=== PATIENT | female | born 1980 | race Caucasian/White ===

== ENCOUNTER 2020-05-04 06:45 | Outpatient (REF) | payer OTHER, SELFPAY ==
[2020-05-04 07:31] LABS: MANUAL DIFF FLAG NO
[2020-05-04 07:40] LABS: Basophils Absolute Auto 0.1 X10*3/uL (0.0-0.2); Basophils Percent Auto 1.1 % (0-2); Eosinophils Absolute Auto 0.2 X10*3/uL (0.0-0.4); Eosinophils Percent Auto 2.2 % (0-4); Hematocrit 34.1 % (37-47); Imm Gran Abs Auto 0.12 X10*3/uL (0.00-0.03); Imm Gran Pct Auto 1.3 % (0.0-0.4); Lymphocytes Absolute Auto 2.4 X10*3/uL (1.2-4.9); Lymphocytes Percent Auto 26.3 % (20-40); Mean Corpuscular HGB Conc 32.3 g/dl (31.0-35.0); Mean Corpuscular Hemoglobin 30.1 pg (27.0-33.0); Mean Corpuscular Volume 93.2 fL (80-98); Mean Platelet Volume 10.8 fL (9.4-12.3); Monocytes Absolute Auto 0.5 X10*3/uL (0.1-1.2); Monocytes Percent Auto 5.5 % (2-11); Neutrophils Absolute Auto 5.7 X10*3/uL (2.0-8.3); Neutrophils Percent Auto 63.6 % (45-73); Platelet Count 332 X10*3/uL (160-400); Red Blood Count 3.66 X10*6/uL (4.20-5.50); Red Cell Distribution Width 15.9 % (11.0-16.0)
== END 2020-05-04 06:46 | disposition home or self-care (01) ==
LOC: HO.LABR 06:45
PROVIDERS: PCP Internal Medicine; Visit Provider Internal Medicine Medical Oncology
DX: D47.3 Essential (hemorrhagic) thrombocythemia (principal)
CPT/HCPCS: 36415; 85025

== ENCOUNTER 2020-06-01 10:29 | Outpatient (REF) | payer OTHER, SELFPAY ==
[2020-06-01 12:30] LABS: MANUAL DIFF FLAG NO
[2020-06-01 12:35] LABS: Basophils Absolute Auto 0.1 X10*3/uL (0.0-0.2); Basophils Percent Auto 1.1 % (0-2); Eosinophils Absolute Auto 0.2 X10*3/uL (0.0-0.4); Hematocrit 35.9 % (37-47); Hemoglobin 11.6 g/dl (12.0-16.0); Imm Gran Abs Auto 0.08 X10*3/uL (0.00-0.03); Imm Gran Pct Auto 0.9 % (0.0-0.4); Lymphocytes Absolute Auto 2.2 X10*3/uL (1.2-4.9); Lymphocytes Percent Auto 26.5 % (20-40); Mean Corpuscular HGB Conc 32.3 g/dl (31.0-35.0); Mean Corpuscular Hemoglobin 29.9 pg (27.0-33.0); Mean Corpuscular Volume 92.5 fL (80-98); Monocytes Absolute Auto 0.4 X10*3/uL (0.1-1.2); Neutrophils Absolute Auto 5.5 X10*3/uL (2.0-8.3); Neutrophils Percent Auto 64.5 % (45-73); Platelet Count 324 X10*3/uL (160-400); Red Blood Count 3.88 X10*6/uL (4.20-5.50); Red Cell Distribution Width 15.9 % (11.0-16.0); White Blood Count 8.5 X10*3/uL (4.8-10.8)
== END 2020-06-01 10:30 | disposition home or self-care (01) ==
LOC: HO.LABR 10:29
PROVIDERS: PCP Internal Medicine; Visit Provider Internal Medicine Medical Oncology
DX: D47.3 Essential (hemorrhagic) thrombocythemia (principal); L60.0 Ingrowing nail
CPT/HCPCS: 36415; 85025

== ENCOUNTER 2020-07-07 07:41 | Outpatient (REF) | payer OTHER, SELFPAY ==
[2020-07-07 08:02] LABS: MANUAL DIFF FLAG NO
[2020-07-07 08:11] LABS: Basophils Absolute Auto 0.1 X10*3/uL (0.0-0.2); Basophils Percent Auto 1.4 % (0-2); Eosinophils Absolute Auto 0.2 X10*3/uL (0.0-0.4); Eosinophils Percent Auto 3.3 % (0-4); Hematocrit 34.2 % (37-47); Hemoglobin 11.3 g/dl (12.0-16.0); Imm Gran Abs Auto 0.04 X10*3/uL (0.00-0.03); Imm Gran Pct Auto 0.6 % (0.0-0.4); Lymphocytes Absolute Auto 2.3 X10*3/uL (1.2-4.9); Lymphocytes Percent Auto 31.3 % (20-40); Mean Corpuscular Volume 90.7 fL (80-98); Mean Platelet Volume 10.6 fL (9.4-12.3); Monocytes Absolute Auto 0.4 X10*3/uL (0.1-1.2); NRBC Pct Auto 0.3 /100WBC (0.0-0.2); Neutrophils Absolute Auto 4.2 X10*3/uL (2.0-8.3); Neutrophils Percent Auto 58.4 % (45-73); Platelet Count 340 X10*3/uL (160-400); Red Blood Count 3.77 X10*6/uL (4.20-5.50); Red Cell Distribution Width 16.3 % (11.0-16.0); White Blood Count 7.2 X10*3/uL (4.8-10.8)
[2020-07-07 09:26] LABS: Ferritin 62 ng/mL (10-250); Vitamin D 25-OH Total 36.6 ng/mL (>30)
== END 2020-07-07 07:42 | disposition home or self-care (01) ==
LOC: HO.LABR 07:41
PROVIDERS: Absent Provider Physician Assistant Medical; PCP Internal Medicine; Visit Provider Internal Medicine Medical Oncology
DX: I82.890 Acute embolism and thrombosis of other specified veins (principal); L64.8 Other androgenic alopecia
CPT/HCPCS: 36415; 82306; 82728; 85025

== ENCOUNTER → 2020-08-13 09:45 | Outpatient (BNV) | payer OTHER, SELFPAY | PROVIDERS: PCP Internal Medicine; Visit Provider Internal Medicine Medical Oncology | DX: D47.3 Essential (hemorrhagic) thrombocythemia (principal); D75.81 Myelofibrosis; D64.9 Anemia, unspecified | CPT/HCPCS: 99212; 99213; 99214 ==

== ENCOUNTER 2020-09-07 08:52 | Outpatient (REF) | payer OTHER, SELFPAY ==
[2020-09-07 09:16] LABS: MANUAL DIFF FLAG NO
[2020-09-07 09:20] LABS: Basophils Absolute Auto 0.2 X10*3/uL (0.0-0.2); Basophils Percent Auto 1.5 % (0-2); Eosinophils Absolute Auto 0.2 X10*3/uL (0.0-0.4); Eosinophils Percent Auto 2.1 % (0-4); Hematocrit 33.6 % (37-47); Hemoglobin 10.9 g/dl (12.0-16.0); Imm Gran Abs Auto 0.19 X10*3/uL (0.00-0.03); Imm Gran Pct Auto 1.9 % (0.0-0.4); Lymphocytes Absolute Auto 2.6 X10*3/uL (1.2-4.9); Lymphocytes Percent Auto 25.7 % (20-40); Mean Corpuscular HGB Conc 32.4 g/dl (31.0-35.0); Mean Corpuscular Hemoglobin 29.9 pg (27.0-33.0); Mean Corpuscular Volume 92.3 fL (80-98); Mean Platelet Volume 10.8 fL (9.4-12.3); Monocytes Absolute Auto 0.6 X10*3/uL (0.1-1.2); Monocytes Percent Auto 5.5 % (2-11); NRBC Pct Auto 0.2 /100WBC (0.0-0.2); Neutrophils Absolute Auto 6.4 X10*3/uL (2.0-8.3); Neutrophils Percent Auto 63.3 % (45-73); Platelet Count 299 X10*3/uL (160-400); Red Blood Count 3.64 X10*6/uL (4.20-5.50); Red Cell Distribution Width 15.9 % (11.0-16.0); White Blood Count 10.2 X10*3/uL (4.8-10.8)
== END 2020-09-07 08:53 | disposition home or self-care (01) ==
LOC: HO.LABR 08:52
PROVIDERS: Visit Provider Internal Medicine Medical Oncology
DX: D47.3 Essential (hemorrhagic) thrombocythemia (principal)
CPT/HCPCS: 36415; 85025

== ENCOUNTER 2020-10-05 08:54 | Outpatient (REF) | payer OTHER, SELFPAY ==
[2020-10-05 09:35] LABS: MANUAL DIFF FLAG NO
[2020-10-05 09:42] LABS: Basophils Absolute Auto 0.1 X10*3/uL (0.0-0.2); Basophils Percent Auto 1.5 % (0-2); Eosinophils Absolute Auto 0.2 X10*3/uL (0.0-0.4); Eosinophils Percent Auto 2.5 % (0-4); Hematocrit 35.8 % (37-47); Hemoglobin 11.8 g/dl (12.0-16.0); Imm Gran Pct Auto 1.1 % (0.0-0.4); Lymphocytes Absolute Auto 2.2 X10*3/uL (1.2-4.9); Lymphocytes Percent Auto 24.9 % (20-40); Mean Corpuscular Hemoglobin 30.2 pg (27.0-33.0); Mean Corpuscular Volume 91.6 fL (80-98); Mean Platelet Volume 11.3 fL (9.4-12.3); Monocytes Absolute Auto 0.5 X10*3/uL (0.1-1.2); Monocytes Percent Auto 5.6 % (2-11); Neutrophils Absolute Auto 5.7 X10*3/uL (2.0-8.3); Neutrophils Percent Auto 64.4 % (45-73); Platelet Count 316 X10*3/uL (160-400); Red Blood Count 3.91 X10*6/uL (4.20-5.50); Red Cell Distribution Width 16.1 % (11.0-16.0); White Blood Count 8.9 X10*3/uL (4.8-10.8)
== END 2020-10-05 08:55 | disposition home or self-care (01) ==
LOC: HO.LABR 08:54
PROVIDERS: PCP Internal Medicine; Visit Provider Internal Medicine Medical Oncology
DX: I82.90 Acute embolism and thrombosis of unspecified vein (principal)
CPT/HCPCS: 36415; 85025

== ENCOUNTER 2020-11-02 08:44 | Outpatient (REF) | payer OTHER, SELFPAY ==
[2020-11-02 09:34] LABS: MANUAL DIFF FLAG NO
[2020-11-02 09:44] LABS: Basophils Absolute Auto 0.1 X10*3/uL (0.0-0.2); Basophils Percent Auto 1.5 % (0-2); Eosinophils Absolute Auto 0.2 X10*3/uL (0.0-0.4); Eosinophils Percent Auto 2.6 % (0-4); Hematocrit 35.3 % (37-47); Hemoglobin 11.7 g/dl (12.0-16.0); Imm Gran Abs Auto 0.08 X10*3/uL (0.00-0.03); Imm Gran Pct Auto 1.1 % (0.0-0.4); Lymphocytes Absolute Auto 2.2 X10*3/uL (1.2-4.9); Lymphocytes Percent Auto 30.4 % (20-40); Mean Corpuscular HGB Conc 33.1 g/dl (31.0-35.0); Mean Corpuscular Hemoglobin 30.3 pg (27.0-33.0); Mean Corpuscular Volume 91.5 fL (80-98); Mean Platelet Volume 11.1 fL (9.4-12.3); Monocytes Absolute Auto 0.4 X10*3/uL (0.1-1.2); Monocytes Percent Auto 5.7 % (2-11); Neutrophils Absolute Auto 4.2 X10*3/uL (2.0-8.3); Neutrophils Percent Auto 58.7 % (45-73); Platelet Count 258 X10*3/uL (160-400); Red Blood Count 3.86 X10*6/uL (4.20-5.50); Red Cell Distribution Width 15.9 % (11.0-16.0); White Blood Count 7.2 X10*3/uL (4.8-10.8)
== END 2020-11-02 08:45 | disposition home or self-care (01) ==
LOC: HO.LABR 08:44
PROVIDERS: PCP Internal Medicine; Visit Provider Internal Medicine Medical Oncology
DX: D47.3 Essential (hemorrhagic) thrombocythemia (principal)
CPT/HCPCS: 36415; 85025

== ENCOUNTER → 2020-11-13 07:43 | Outpatient (REF) | payer OTHER, SELFPAY ==
--- NOTE | 2020-11-13 07:53 | CA_ITS ---
Transthoracic Echocardiogram Patient (Last, First, Middle): Lilibeth Stringer, Gender: Female Date of : 1980 Age: 40 Procedure Date: 11/13/2020 Procedure Type: Transthoracic Echocardiogram Location: OP Height: 160.02 cm Weight: 78.02 kg BSA: 1.81 m2 Heart Rate: bpm BP: 128 / 80 mmHg Field Coil Winder: MONIQUE Referring MD: Mary Mcghee MD Patent Law Specialist: Shaheed Lyle MD Symptoms: R60.0 - Localized edema Study Quality: Fair ECG Rhythm: Sinus Conclusions: - 1. Normal LV systolic and diastolic function 2. Mild aortic regurgitation 3. Normal RV systolic pressure 4. No pericardial effusion Findings Left Ventricle Normal left ventricular size, thickness, and systolic function. The visually estimated ejection fraction is between 60-65%. Diastolic function is normal for age. Right Ventricle Normal right ventricular cavity size and systolic function. Atria Both atria are normal in size. Interatrial shunt cannot be excluded. Aortic Valve The aortic valve structure and function is likely normal. There is no aortic valve stenosis. There is mild aortic valve regurgitation. Mitral Valve Normal mitral valve structure and function. There is trace mitral valve regurgitation. There is no mitral valve stenosis. Pulmonic Valve The pulmonic valve is likely normal. There is trace to mild pulmonic valve regurgitation. Tricuspid Valve Normal tricuspid valve structure. There is mild tricuspid valve regurgitation. The right ventricular systolic pressure is normal. The right ventricular systolic pressure is 28 mmHg. Normal right atrial pressure. There is no evidence of pulmonary hypertension. Great Vessels All visible segments of the aorta are normal in size. The pulmonary artery was not well visualized. Venous The inferior vena cava is normal in size and collapses greater than 50% with inspiration. Pericardium/Pleural There is no evidence of pericardial effusion. Prior Study Comparison Changes noted compared to prior study dated: 12/29/2015. Mild aortic regurgitation noted Measurements 2D Linear Measurements IVSd: 1.04 0.6-0.9/0.6-1.0 cm LVIDd: 4.12 3.9-5.3/4.2-5.9 cm LVIDd Index: 2.28 2.4-3.2/2.2-3.1 cm/m2 LVIDs: 2.46 2.0-3.6 cm LVPWd: 1.05 0.7-1.1 cm Ao Root: 2.70 2.1-3.5 cm LA Diam: 2.90 2.7-3.8/3.0-4.0 cm LAIDs Index: 1.60 1.5-2.3 cm/m2 LV Mass: 176.33 67-162/88-224 g LV Mass Index: 97.42 43-95/49-115 g/m2 LVOT Diam: 2.10 3.0+(-)1.3 cm 2D Systolic Function EF 4C: 67.60 >55% EF 2C: 54.60 >55% EF BiP: 61.10 >55% Mitral Valve MV Pk E: 0.78 MV PK A: 0.73 MV Decel Time: 130.00 E/A: 1.10 E'Lateral: 12.00 E'Medial: 8.61 E/E' Med: 9.10 E/E' Lat: 6.50 PHT: 38.00 MVA PHT: 5.79 Decel Bladen: 7.00 Aortic Valve AoV Pk Ramesh: 1.14 AoV Mn Ramesh: 0.81 AoV VTI: 0.28 AoV Pk Grad: 5.00 Aov Mn Grad: 3.00 ABHIJIT Cont.VTI: 2.59 LVOT LVOT Pk Ramesh: 0.95 LVOT Mn Ramesh: 0.60 LVOT VTI: 0.21 LVOT Pk Grad: 4.00 LVOT Mn Grad: 2.00 LVOT Diam: 2.10 LVOT Area: 3.46 Diastolic Function MV Pk E: 0.78 MV Pk A: 0.73 E/A: 1.10 E'Medial: 8.61 E/E' Med: 9.10 E' Laterial: 12.00 E/E' Lat: 6.50 Tricuspid Valve TR Pk Ramesh: 2.50 TR Pk Grad: 25.00 RA Press: 3.00 RVSP: 28.00 Great Vessels Aorta Ao Root-2D: 2.70 2.0-3.7 cm Ao Asc: 3.00 2.1-3.4 cm Pulmonary Valve PV Pk Ramesh: 0.79 Peak PV Grad: 2.00 Updated in Other Vendor System with Status of Final Shaheed Lyle MD electronically signed on 11/13/2020 2:52:47 PM with status of Final
== END ==
LOC: HO.CARD 07:43
PROVIDERS: PCP Internal Medicine; Visit Provider Internal Medicine
DX: R60.0 Localized edema (principal)
CPT/HCPCS: 93306

== ENCOUNTER 2020-12-10 09:48 | Outpatient (REF) | payer OTHER, SELFPAY ==
[2020-12-10 11:44] LABS: MANUAL DIFF FLAG NO
[2020-12-10 11:50] LABS: Basophils Absolute Auto 0.1 X10*3/uL (0.0-0.2); Basophils Percent Auto 1.3 % (0-2); Eosinophils Absolute Auto 0.3 X10*3/uL (0.0-0.4); Eosinophils Percent Auto 3.1 % (0-4); Hematocrit 36.5 % (37-47); Hemoglobin 11.7 g/dl (12.0-16.0); Imm Gran Abs Auto 0.13 X10*3/uL (0.00-0.03); Imm Gran Pct Auto 1.2 % (0.0-0.4); Lymphocytes Absolute Auto 2.8 X10*3/uL (1.2-4.9); Lymphocytes Percent Auto 26.4 % (20-40); Mean Corpuscular HGB Conc 32.1 g/dl (31.0-35.0); Mean Corpuscular Hemoglobin 29.5 pg (27.0-33.0); Mean Corpuscular Volume 91.9 fL (80-98); Mean Platelet Volume 10.9 fL (9.4-12.3); Monocytes Absolute Auto 0.5 X10*3/uL (0.1-1.2); Neutrophils Absolute Auto 6.7 X10*3/uL (2.0-8.3); Platelet Count 382 X10*3/uL (160-400); Red Blood Count 3.97 X10*6/uL (4.20-5.50); Red Cell Distribution Width 16.4 % (11.0-16.0); White Blood Count 10.7 X10*3/uL (4.8-10.8)
== END 2020-12-10 09:49 | disposition home or self-care (01) ==
LOC: HO.LABR 09:48
PROVIDERS: PCP Internal Medicine; Visit Provider Internal Medicine Medical Oncology
DX: D47.3 Essential (hemorrhagic) thrombocythemia (principal)
CPT/HCPCS: 36415; 85025

== ENCOUNTER 2021-01-04 10:46 | Outpatient (REF) | payer OTHER, SELFPAY | END 2021-01-04 10:47 | disposition home or self-care (01) | LOC: HO.LAB 10:46 | PROVIDERS: PCP Internal Medicine; Visit Provider Internal Medicine | DX: Z13.89 Encounter for screening for other disorder (principal) ==

== ENCOUNTER 2021-01-06 10:11 | Outpatient (REF) | payer OTHER, SELFPAY ==
[2021-01-06 11:51] LABS: Leukocytes Stool Qualitative NEGATIVE (NEGATIVE)
[2021-01-06 12:07] LABS: CDiff Gene PCR POSITIVE (Negative)
[2021-01-06 13:56] LABS: CDiff Toxin Positive (Negative)
[2021-01-06 13:57] LABS: CDIFF Internal ctrl Dots and bkg OK (V)
== END 2021-01-06 10:12 | disposition home or self-care (01) ==
LOC: HO.LNP 10:11
PROVIDERS: Visit Provider Internal Medicine
DX: R19.7 Diarrhea, unspecified (principal)
CPT/HCPCS: 87045; 87046; 87324; 87329; 87493; 89055

== ENCOUNTER 2021-01-20 10:45 | Outpatient (REF) | payer OTHER, SELFPAY ==
--- NOTE | ~2021-01-20 | CT_ITS ---
EXAMINATION: CT ABDOMEN AND PELVIS WITH CONTRAST CLINICAL INFORMATION: Diarrhea COMPARISON: Previous CT of the abdomen and pelvis March 2014 TECHNIQUE: Multidetector volumetric images were obtained from the superior aspect of the liver through the pubic symphysis following administration 85 mL of Omnipaque 350 intravenous contrast. Sagittal and coronal reformatted images were obtained on the technologist's workstation. Oral contrast: Yes This CT examination was performed using dose optimization techniques as appropriate, variously including the following: *Automated exposure control *Adjustment of mA and/or kV according to patient size (this includes techniques or standardized protocols for targeted exams where dose is matched to indication/reason for exam; i.e. extremities or head) *Use of iterative reconstruction technique DLP: 401 mGy-cm FINDINGS: LUNG BASES: There is a 3 mm peripheral right lower lobe nodule axial image 13 series 3 that is stable. The lung bases are otherwise clear. LIVER, GALLBLADDER, AND BILIARY TREE: The liver is normal in size, shape, and attenuation. No focal hepatic lesion or biliary ductal dilatation is present. The gallbladder is unremarkable with no evidence of radiopaque gallstones, gallbladder wall thickening, or obvious pericholecystic inflammatory changes. PANCREAS: Unremarkable. SPLEEN: Unremarkable. ADRENAL GLANDS: Unremarkable. 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 The kidneys are otherwise unremarkable. BLADDER: Unremarkable. GASTROINTESTINAL TRACT: There is question of mild wall thickening of the cecum and proximal ascending colon. There is stool fluid seen in the large bowel. There is no evidence of obstruction. No mass is seen. The appendix is upper normal in size measuring 9 to 10 mm. There is some fluid and air seen in the appendix. The periappendiceal fat is normal. Small bowel is normal. The stomach is normal. ABDOMINAL WALL: There is an umbilical hernia containing fat. LYMPH NODES: There is shotty small bowel mesentery and retroperitoneal lymphadenopathy. No enlarged lymph nodes are seen. VASCULAR: Unremarkable. PELVIC VISCERA: The uterus and ovaries are unremarkable. There is trace fluid in the pelvis. OSSEOUS STRUCTURES: Unremarkable. CT/CT abdomen pelvis w con IMPRESSION: Question mild wall thickening of the cecum and proximal right colon/colitis. There is stool and fluid seen in the colon suggestive of an ileus. The appendix is upper normal in size measuring 9 to 10 mm and contains fluid and small amount of air. The appendiceal findings may be secondary to mild wall thickening of the cecum. Appendicitis should also be considered and clinical correlation recommended.
[2021-01-20] MEDS: Barium Sulfate Oral (Vanilla) 450 ML ORAL.SUSP 900 ML PO (15:04)
[2021-01-20] MEDS: iohexoL 350 MG/ML 100 ML INFUS..BTL IV (15:04)
== END 2021-01-20 10:46 | disposition home or self-care (01) ==
LOC: HO.CT 10:45
PROVIDERS: Visit Provider Internal Medicine
DX: R19.7 Diarrhea, unspecified (principal); R10.9 Unspecified abdominal pain
CPT/HCPCS: 74177; Q9967

== ENCOUNTER 2021-01-22 14:55 | Emergency (ER) | payer OTHER, SELFPAY ==
[2021-01-22 15:17] VITALS: BP 150/91; PULSE 108; RESP 16; TEMP 36.7; O2SAT 100; BMI 28.1
--- NOTE | 2021-01-22 16:30 | ED_ITS ---
HPI - Abdominal Pain General Chief Complaint: Abdominal Pain Stated Complaint: abd pain Time Seen by Provider: 01/22/21 16:29 Source: patient Mode of arrival: ambulatory Limitations: no limitations History of Present Illness HPI narrative: Patient took antibiotics 1 month ago for dental infection since then she has been having diarrhea head stool tested for C diff on 01/04 positive treated with Flagyl , she got better for few days after and again continued to have diarrhea still having 7-10 times loose bowels head CT scan done on 01/20 shows diffuse colitis and upper normal size of appendix, patient comes here for further evaluation. No fever no chills no blood in the stool no nausea no vomiting Related Data Home Medications Medication Instructions Recorded Confirmed amitriptyline 50 mg tablet 50 mg PO BEDTIME 06/01/20 01/04/21 anagrelide 1 mg capsule 1 mg PO BID 06/01/20 01/04/21 aspirin 81 mg tablet,delayed 81 mg PO DAILY 06/01/20 01/04/21 release betamethasone dipropionate 0.05 % 0.05 ea TOPICAL DAILY 06/01/20 01/04/21 topical ointment cholecalciferol (vitamin D3) 50 50 mcg PO DAILY 06/01/20 01/04/21 mcg (2,000 unit) capsule clonazepam 0.5 mg tablet 0.5 mg PO BEDTIME 06/01/20 01/04/21 ferrous sulfate 325 mg (65 mg 325 mg PO DAILY 06/01/20 01/04/21 iron) tablet ketoconazole 2 % shampoo 1 applic TOPICAL 2XW 06/01/20 01/04/21 mometasone 0.1 % topical ointment 3 ea TOPICAL Q OTHER DAY PRN 06/01/20 01/04/21 topiramate 50 mg tablet 50 mg PO BID 06/01/20 01/04/21 Previous Rx's Medication Instructions Recorded furosemide 20 mg tablet 20 mg PO DAILY 90 Days #90 tab 09/29/20 propranolol 60 mg capsule,24 60 mg PO DAILY 90 Days #90 cap 10/20/20 hr,extended release anagrelide 1 mg PO Q12H #180 cap 11/16/20 loratadine 10 mg tablet 10 mg PO DAILY 90 Days #90 tab 12/03/20 metronidazole 500 mg tablet 500 mg PO TID 10 Days #30 tab 06/23/21 Lactobacillus acidophilus 500 mmu cells PO TID #30 cap 01/22/21 [Probiotic Acidophilus] vancomycin 125 mg PO QID 10 Days #40 cap 01/22/21 Allergies Allergy/AdvReac Type Severity Reaction Status Date / Time ondansetron Allergy Intermediate abdominal Verified 01/22/21 15:21 pain Penicillins [PCN] Allergy Intermediate Rash Verified 01/22/21 15:21 Review of Systems Review of Systems Yes all other systems are reviewed and are negative Physical Exam Vital Signs: Vital Signs: Last Vital Signs Temp 98.1 F 01/22/21 17:45 Pulse 83 01/22/21 17:45 Resp 16 01/22/21 17:45 BP 113/71 01/22/21 17:45 Pulse Ox 99 01/22/21 17:45 Body Mass Index 28.1 Appearance: Alert. Oriented X3. No acute distress. Eyes: PERRLA, No Nystagmus ENT: Pharynx normal. Oral Mucosa moist Neck: Normal inspection. Neck supple. CVS: Normal heart rate and rhythm. Pulses normal. Respiratory: No respiratory distress. Equal air entry bilateral, no wheezing/rales/rhonchi Abdomen: Soft and mild diffuse tenderness, Bowel sounds are present, no mass palpable, no CVA tenderness Skin: Skin warm and dry. Normal skin color. Normal skin turgor. Extremities: No lower extremity edema. No calf tenderness Neuro: Oriented X 3. No motor deficit. No sensory deficit.No cerebellar signs , cranial nerves II-XII intact MDM - Abdominal Pain MDM Narrative Medical decision making narrative: Patient's C diff colitis stable labs will discharge patient home on p.o. Vanco and probiotic advised to follow with PCP Lab Data Attestation: I reviewed the patient's lab results. Result diagrams: 01/22/21 16:41 01/22/21 17:43 Labs: Lab Results 01/22/21 01/22/21 01/22/21 Range/Units 16:41 16:41 17:43 WBC 10.6 (4.8-10.8) X10*3/uL RBC 3.78 L (4.20-5.50) X10*6/uL Hgb 11.3 L (12.0-16.0) g/dl Hct 34.1 L (37-47) % MCV 90.2 (80-98) fL MCH 29.9 (27.0-33.0) pg MCHC 33.1 (31.0-35.0) g/dl RDW 16.6 H (11.0-16.0) % Plt Count 226 D (160-400) X10*3/uL MPV 11.7 (9.4-12.3) fL Immature Gran % (Auto) 0.6 H (0.0-0.4) % Neut % (Auto) 71.9 (45-73) % Lymph % (Auto) 16.8 L (20-40) % Winston % (Auto) 7.0 (2-11) % Eos % (Auto) 2.8 (0-4) % Baso % (Auto) 0.9 (0-2) % Lymph # (Auto) 1.8 (1.2-4.9) X10*3/uL Winston # (Auto) 0.7 (0.1-1.2) X10*3/uL Eos # (Auto) 0.3 (0.0-0.4) X10*3/uL Baso # (Auto) 0.1 (0.0-0.2) X10*3/uL Abs Immat Gran (auto) 0.06 H (0.00-0.03) X10*3/uL Absolute Neuts (auto) 7.6 (2.0-8.3) X10*3/uL Absolute Nucleated RBC 0.000 (0.0-0.012) X10*3/uL Nucleated RBC % (auto) 0.0 (0.0-0.2) /100WBC Sodium 138 (135-145) mmol/L Potassium 3.8 (3.3-5.1) mmol/L Chloride 108 (96-108) mmol/L Carbon Dioxide 16 L (22-29) mmol/L Anion Gap 18 (12-20) BUN 9 (9-16) mg/dL Creatinine 1.03 (0.5-1.4) mg/dL Estim Creat Clear Calc 67.7 Estimated GFR 59 Random Glucose 78 (60-115) mg/dL Lactic Acid 1.0 (0.5-2.0) mmol/L Calcium 8.8 (8.4-10.2) mg/dL Discharge Plan Discharge Clinical Impression: C. difficile colitis Patient Disposition: Home, Self-Care Instructions: C. Diff (Clostridioides Difficile) Infection (ED) Additional Instructions: Drink plenty of fluid take medication as prescribed and follow with PCP if not better Prescriptions: New vancomycin 125 mg capsule 125 mg PO QID 10 Days Qty: 40 RF: 0 Probiotic Acidophilus 1.5 mg (250 million cell) capsule 500 mmu cells PO TID Qty: 30 RF: 0 No Action propranolol [Inderal LA] 60 mg capsule,extended release 24 hr 60 mg PO DAILY 90 Days Qty: 90 RF: 3 anagrelide 0.5 mg Capsule 1 mg PO Q12H Qty: 180 RF: 6 loratadine [Allergy Relief (loratadine)] 10 mg tablet 10 mg PO DAILY 90 Days Qty: 90 RF: 2 metronidazole 500 mg tablet 500 mg PO TID 10 Days Qty: 30 RF: 0 cholecalciferol (vitamin D3) 50 mcg (2,000 unit) capsule 50 mcg PO DAILY RF: 0 ferrous sulfate 325 mg (65 mg iron) tablet 325 mg PO DAILY RF: 0 amitriptyline 50 mg tablet 50 mg PO BEDTIME RF: 0 clonazepam 0.5 mg tablet 0.5 mg PO BEDTIME RF: 0 topiramate 50 mg tablet 50 mg PO BID RF: 0 anagrelide 1 mg capsule 1 mg PO BID RF: 0 betamethasone dipropionate 0.05 % ointment 0.05 ea topical DAILY RF: 0 ketoconazole 2 % shampoo 1 applic topical 2XW RF: 0 mometasone 0.1 % ointment 3 ea topical Q OTHER DAY PRN (Reason: Rash) RF: 0 aspirin [Adult Low Dose Aspirin] 81 mg tablet,delayed release (DR/EC) 81 mg PO DAILY RF: 0 furosemide 20 mg tablet 20 mg PO DAILY 90 Days Qty: 90 RF: 1 PMFSH Past Medical History Medical History Abdominal pain Anxiety C. difficile colitis Constipation by delayed colonic transit Diarrhea Hyperviscosity syndrome Hypovitaminosis D Inappropriate sinus tachycardia Leg edema Migraines Surgical History History of tonsillectomy and adenoidectomy Family History Family History Father Liver failure Mother Hypertension Maternal Grandmother No problems noted. Maternal Grandfather Stroke Paternal Grandmother Breast cancer Maternal Aunt Fibroids Paternal Grandmother Breast cancer Social History Social History Housing: Apartment Alcohol intake: never Patient Tobacco Use Status: Never used Tobacco e-Cigarette/Vaping Use: Never Used Second Hand Smoke Exposure: No Advance Directives: No Advance Directives Information Provided: Yes Patient : No service: No Current occupational status: unemployed
[2021-01-22 16:42] VITALS: BP 124/79; PULSE 83; RESP 16; O2SAT 100
[2021-01-22 16:51] LABS: MANUAL DIFF FLAG NO
[2021-01-22 16:55] LABS: Basophils Absolute Auto 0.1 X10*3/uL (0.0-0.2); Basophils Percent Auto 0.9 % (0-2); Eosinophils Absolute Auto 0.3 X10*3/uL (0.0-0.4); Eosinophils Percent Auto 2.8 % (0-4); Hematocrit 34.1 % (37-47); Hemoglobin 11.3 g/dl (12.0-16.0); Imm Gran Abs Auto 0.06 X10*3/uL (0.00-0.03); Imm Gran Pct Auto 0.6 % (0.0-0.4); Lymphocytes Absolute Auto 1.8 X10*3/uL (1.2-4.9); Lymphocytes Percent Auto 16.8 % (20-40); Mean Corpuscular HGB Conc 33.1 g/dl (31.0-35.0); Mean Corpuscular Hemoglobin 29.9 pg (27.0-33.0); Mean Corpuscular Volume 90.2 fL (80-98); Mean Platelet Volume 11.7 fL (9.4-12.3); Monocytes Absolute Auto 0.7 X10*3/uL (0.1-1.2); Neutrophils Absolute Auto 7.6 X10*3/uL (2.0-8.3); Neutrophils Percent Auto 71.9 % (45-73); Platelet Count 226 X10*3/uL (160-400); Red Blood Count 3.78 X10*6/uL (4.20-5.50); Red Cell Distribution Width 16.6 % (11.0-16.0); White Blood Count 10.6 X10*3/uL (4.8-10.8)
[2021-01-22] MEDS: vancomycin HCL 125 MG CAPSULE PO (16:56)
[2021-01-22 17:45] VITALS: BP 113/71; PULSE 83; RESP 16; TEMP 36.7; O2SAT 99
[2021-01-22 18:08] LABS: Anion Gap 18 (12-20); Blood Urea Nitrogen 9 mg/dL (9-16); Calcium 8.8 mg/dL (8.4-10.2); Carbon Dioxide 16 mmol/L (22-29); Chloride 108 mmol/L (96-108); Creatinine Clr Calc Pharmacy 67.7; Estimated Glomerular Filt Rate 59; Glucose Random 78 mg/dL (60-115); Potassium 3.8 mmol/L (3.3-5.1); Sodium 138 mmol/L (135-145)
== END 2021-01-22 19:26 | disposition home or self-care (01) ==
PROVIDERS: Emergency Provider Internal Medicine; PCP Internal Medicine
DX: A04.72 Enterocolitis due to Clostridium difficile, not specified as recurrent (principal)
CPT/HCPCS: 36415; 80048; 83605; 85025; 99283; 99284

== ENCOUNTER 2021-02-12 10:43 | Outpatient (REF) | payer OTHER, SELFPAY ==
--- NOTE | ~2021-02-12 | MM_ITS ---
EXAMINATION: MM SCREENING DIGITAL BREAST TOMOSYNTHESIS, BILATERAL CLINICAL INFORMATION: Screening. Asymptomatic. The lifetime risk of breast cancer based on the Tyrer-Cuzick Model is 14%. COMPARISON: Mammography: 02/10/2020, 12/06/2018 (baseline). TECHNIQUE: Digital breast tomosynthesis is performed in both the craniocaudal and mediolateral oblique views along with computer-aided detection (CAD). Synthesized 2D images are generated from the tomosynthesis. FINDINGS: The breasts are heterogeneously dense, which may obscure small masses (ACR BI-RADS breast composition Category c). There are no significant masses, abnormal calcifications, or other abnormalities. Parenchymal pattern is similar to prior studies. The axilla and skin contours are unremarkable. No significant changes. MM/MM tomosynthesis screening BI IMPRESSION: No mammographic evidence of malignancy. ASSESSMENT: BI-RADS 1: Negative RECOMMENDATION: Routine annual mammography screening. This patient's information was entered into a reminder system with a target due date for their next mammogram.
== END 2021-02-12 10:44 | disposition home or self-care (01) ==
LOC: HO.MAMMO 10:43
PROVIDERS: PCP Internal Medicine; Visit Provider Internal Medicine
DX: Z12.31 Encounter for screening mammogram for malignant neoplasm of breast (principal)
CPT/HCPCS: 77063; 77067

== ENCOUNTER 2021-05-31 08:33 | Outpatient (REF) | payer OTHER, SELFPAY ==
[2021-05-31 09:04] LABS: MANUAL DIFF FLAG NO
[2021-05-31 09:11] LABS: Basophils Absolute Auto 0.1 X10*3/uL (0.0-0.2); Basophils Percent Auto 0.8 % (0-2); Eosinophils Absolute Auto 0.3 X10*3/uL (0.0-0.4); Eosinophils Percent Auto 3.9 % (0-4); Hematocrit 31.2 % (37.0-47.0); Hemoglobin 10.5 g/dl (12.0-16.0); Imm Gran Abs Auto 0.05 X10*3/uL (0.00-0.03); Imm Gran Pct Auto 0.8 % (0.0-0.4); Lymphocytes Absolute Auto 2.1 X10*3/uL (1.2-4.9); Lymphocytes Percent Auto 32.9 % (20-40); Mean Corpuscular HGB Conc 33.7 g/dl (31.0-35.0); Mean Corpuscular Hemoglobin 30.6 pg (27.0-33.0); Monocytes Absolute Auto 0.3 X10*3/uL (0.1-1.2); Monocytes Percent Auto 5.1 % (2-11); Neutrophils Absolute Auto 3.7 x10*3/uL (2.0-8.3); Neutrophils Percent Auto 56.5 % (45-73); Platelet Count 177 X10*3/uL (160-400); Red Blood Count 3.43 X10*6/uL (4.20-5.50); White Blood Count 6.5 X10*3/uL (4.8-10.8)
[2021-05-31 09:38] LABS: Alanine Aminotransferase 11 U/L (0-31); Albumin Level 4.2 g/dL (3.5-5.0); Alkaline Phosphatase 64 U/L (39-117); Anion Gap 13 (12-20); Aspartate Amino Transferase 14 U/L (5-31); Bilirubin Total 0.3 mg/dL (0.0-1.0); Blood Urea Nitrogen 7 mg/dL (9-16); Calcium 8.9 mg/dL (8.4-10.2); Carbon Dioxide 20 mmol/L (22-29); Chloride 111 mmol/L (96-108); Cholesterol 182 mg/dL; Estimated Glomerular Filt Rate > 60; Glucose Fasting 91 mg/dL (60-99); HDL Cholesterol 38 mg/dL; LDL Cholesterol Calculated 125 mg/dl; Potassium 3.6 mmol/L (3.3-5.1); Sodium 140 mmol/L (135-145); Total Protein 6.7 g/dL (6.5-8.0); Triglycerides 99 mg/dL
--- NOTE | 2021-06-02 09:22 | MHC.HEMONC ---
I gave pt her PLT and HGB results from a couple of days ago.
[2021-06-05 13:35] LABS: Vitamin D 25-OH, D2 <4 ng/mL; Vitamin D 25-OH, D3 37 ng/mL; Vitamin D 25-OH, Total 37 ng/mL (30-100)
== END 2021-05-31 08:34 | disposition home or self-care (01) ==
LOC: HO.LABR 08:33
PROVIDERS: PCP Internal Medicine; Visit Provider Internal Medicine Medical Oncology
DX: D47.3 Essential (hemorrhagic) thrombocythemia (principal); E78.5 Hyperlipidemia, unspecified; R60.0 Localized edema; E55.9 Vitamin D deficiency, unspecified
CPT/HCPCS: 36415; 80053; 80061; 82306; 85025

== ENCOUNTER 2021-06-28 08:28 | Outpatient (REF) | payer OTHER, SELFPAY ==
[2021-06-28 08:51] LABS: MANUAL DIFF FLAG NO
[2021-06-28 09:02] LABS: Basophils Absolute Auto 0.1 X10*3/uL (0.0-0.2); Basophils Percent Auto 1.4 % (0-2); Eosinophils Absolute Auto 0.2 X10*3/uL (0.0-0.4); Eosinophils Percent Auto 3.1 % (0-4); Hemoglobin 10.2 g/dl (12.0-16.0); Imm Gran Abs Auto 0.09 X10*3/uL (0.00-0.03); Imm Gran Pct Auto 1.2 % (0.0-0.4); Lymphocytes Absolute Auto 2.3 X10*3/uL (1.2-4.9); Lymphocytes Percent Auto 30.8 % (20-40); Mean Corpuscular HGB Conc 32.9 g/dl (31.0-35.0); Mean Corpuscular Hemoglobin 30.7 pg (27.0-33.0); Mean Corpuscular Volume 93.4 fL (80.0-98.0); Monocytes Absolute Auto 0.4 X10*3/uL (0.1-1.2); Monocytes Percent Auto 5.5 % (2-11); Neutrophils Absolute Auto 4.2 x10*3/uL (2.0-8.3); Platelet Count 219 X10*3/uL (160-400); Red Blood Count 3.32 X10*6/uL (4.20-5.50); Red Cell Distribution Width 16.7 % (11.0-16.0); White Blood Count 7.3 X10*3/uL (4.8-10.8)
[2021-06-28 09:44] LABS: Ferritin 87 ng/mL (10-250)
[2021-07-01 21:37] LABS: VITAMIN D (1,25 OH) D3 38 pg/mL; Vit D (1,25-Dihydroxy) Total 38 pg/mL (18-72); Vitamin D (1,25 OH) D2 <8 pg/mL
== END 2021-06-28 08:29 | disposition home or self-care (01) ==
LOC: HO.LAB 08:28
PROVIDERS: Absent Provider Physician Assistant Medical; PCP Internal Medicine; Visit Provider Internal Medicine Medical Oncology
DX: L64.8 Other androgenic alopecia (principal)
CPT/HCPCS: 36415; 82306; 82652; 82728; 85025

== ENCOUNTER → 2021-09-09 11:43 | Outpatient (BNVA) | payer OTHER, SELFPAY | PROVIDERS: PCP Internal Medicine; Referring Provider Internal Medicine; Visit Provider Internal Medicine Cardiovascular Disease | DX: I10 Essential (primary) hypertension (principal); R00.0 Tachycardia, unspecified; Z79.899 Other long term (current) drug therapy | CPT/HCPCS: 93005; 99212 ==

== ENCOUNTER 2021-10-25 08:26 | Outpatient (REF) | payer OTHER, SELFPAY ==
[2021-10-25 08:49] LABS: MANUAL DIFF FLAG NO
[2021-10-25 09:40] LABS: Basophils Absolute Auto 0.1 X10*3/uL (0.0-0.2); Basophils Percent Auto 1.5 % (0-2); Eosinophils Absolute Auto 0.2 X10*3/uL (0.0-0.4); Eosinophils Percent Auto 2.6 % (0-4); Hematocrit 31.5 % (37.0-47.0); Hemoglobin 10.2 g/dl (12.0-16.0); Imm Gran Abs Auto 0.12 X10*3/uL (0.00-0.03); Imm Gran Pct Auto 1.5 % (0.0-0.4); Lymphocytes Absolute Auto 2.5 X10*3/uL (1.2-4.9); Lymphocytes Percent Auto 30.2 % (20-40); Mean Corpuscular HGB Conc 32.4 g/dl (31.0-35.0); Mean Corpuscular Hemoglobin 29.3 pg (27.0-33.0); Mean Corpuscular Volume 90.5 fL (80.0-98.0); Mean Platelet Volume 11.2 fL (9.4-12.3); Monocytes Absolute Auto 0.5 X10*3/uL (0.1-1.2); Monocytes Percent Auto 6.6 % (2-11); NRBC Pct Auto 0.2 /100WBC (0.0-0.2); Neutrophils Absolute Auto 4.7 x10*3/uL (2.0-8.3); Neutrophils Percent Auto 57.6 % (45-73); Platelet Count 251 X10*3/uL (160-400); Red Blood Count 3.48 X10*6/uL (4.20-5.50); Red Cell Distribution Width 15.8 % (11.0-16.0); White Blood Count 8.2 X10*3/uL (4.8-10.8)
== END 2021-10-25 08:27 | disposition home or self-care (01) ==
LOC: HO.LABR 08:26
PROVIDERS: PCP Internal Medicine; Visit Provider Internal Medicine Medical Oncology
DX: D47.3 Essential (hemorrhagic) thrombocythemia (principal)
CPT/HCPCS: 36415; 85025

== ENCOUNTER 2021-11-30 10:33 | Day surgery (SDC) | payer OTHER, SELFPAY ==
[2021-11-24 14:01] VITALS: BMI 26.5
--- NOTE | 2021-11-29 09:35 | HO.ANESPROP2 ---
Documented by User: Inez Morton NP 11/29/21 09:37 HPI - Anesthesia Eval Consult details Narrative: 41yo F for Upper Endoscopy and Colonoscopy [facility] Active Problems Active Problems: All Active Problems (Updated 09/13/21 @ 12:04 by Mary Mcghee MD) Essential thrombocytosis (Acute) Normochromic anemia (Acute) HTN (hypertension) (Acute) GERD (gastroesophageal reflux disease) (Acute) C. difficile colitis (Acute) Abdominal pain (Acute) Diarrhea (Acute) Anxiety (Acute) Leg edema (Acute) Hypovitaminosis D (Acute) Constipation by delayed colonic transit (Acute) Hyperviscosity syndrome (Acute) Migraines (Acute) Inappropriate sinus tachycardia (Acute) Past Medical History Medical History Abdominal pain Anxiety C. difficile colitis Constipation by delayed colonic transit Diarrhea GERD (gastroesophageal reflux disease) Hyperviscosity syndrome Hypovitaminosis D Inappropriate sinus tachycardia Leg edema Migraines Family History Family History Father Liver failure Alcoholism Mother Hypertension Maternal Grandmother No problems noted. Maternal Grandfather Stroke Paternal Grandmother Breast cancer Maternal Aunt Fibroids Paternal Grandmother Breast cancer Surgical History Surgical History (Updated 11/24/21 @ 14:03 by Maribell Reid RN) History of bone marrow biopsy History of tonsillectomy and adenoidectomy Social History Social History Housing: Apartment Alcohol intake: never Patient Tobacco Use Status: Never used Tobacco e-Cigarette/Vaping Use: Never Used Second Hand Smoke Exposure: No Use of substances other than those prescribed or required for medical reasons: No Are you DNR?: No Advance Directives: No Advance Directives Information Provided: Yes Advance Directives on File: No service: No Current occupational status: unemployed Meds Allergies Allergy/AdvReac Type Severity Reaction Status Date / Time ondansetron Allergy Intermediate abdominal Verified 09/20/21 10:40 pain Penicillins [PCN] Allergy Intermediate Rash Verified 09/20/21 10:40 Home Medications Medication Instructions Recorded Confirmed Last Taken Type amitriptyline 50 mg tablet 50 mg PO BEDTIME 06/01/20 09/20/21 Unknown History aspirin 81 mg tablet,delayed 81 mg PO Q OTHER DAY 06/01/20 09/20/21 Unknown History release (Adult Low Dose Aspirin) betamethasone dipropionate 0.05 % 0.05 ea TOPICAL DAILY 06/01/20 09/20/21 Unknown History topical ointment cholecalciferol (vitamin D3) 50 50 mcg PO DAILY 06/01/20 09/20/21 Unknown History mcg (2,000 unit) capsule clonazepam 0.5 mg tablet 0.5 mg PO BEDTIME 06/01/20 09/20/21 Unknown History ferrous sulfate 325 mg (65 mg 325 mg PO DAILY 06/01/20 09/20/21 Unknown History iron) tablet ketoconazole 2 % shampoo 1 applic TOPICAL 2XW 06/01/20 09/20/21 Unknown History mometasone 0.1 % topical ointment 3 ea TOPICAL Q OTHER DAY PRN 06/01/20 09/20/21 Unknown History topiramate 50 mg tablet 100 mg PO BID 06/01/20 09/20/21 11/30/21 History zoibqooxju-azlcscrjeqwkl-lvlmnyyn 1 tab PO DAILY PRN 08/05/21 09/20/21 Unknown History 50 mg-325 mg-40 mg tablet promethazine 12.5 mg tablet 12.5 mg PO DAILY PRN 08/05/21 09/20/21 Unknown History propranolol 60 mg capsule,24 60 mg PO BID 08/05/21 09/20/21 11/30/21 History hr,extended release (Inderal LA) anagrelide 1 mg capsule 0.5 mg PO Q12H cap 09/09/21 09/20/21 Unknown History Exam Exam Date and Time: November 29, 2021 0935 Height,Weight and Vital Signs: Height 5 ft 3 in Weight 68.039 kg Pertinent Lab Results Pertinent Lab Results: Laboratory Tests 08/05/21 10/25/21 09:57 08:47 WBC 8.2 Hgb 10.2 L Hct 31.5 L Plt Count 251 Sodium 140 Potassium 3.8 Chloride 110 H Carbon Dioxide 22 BUN 8 L Creatinine 1.19 Narrative Narrative: EKG 08/2021 normal sinus rhythm with normal EKG at 70 beats per minute Assessment and Plan Assessment Anesthesia Assessment: Chart Reviewed Documented by User: Alondra Hager MD 11/30/21 11:44 PMFSH Active Problems Active Problems: All Active Problems (Updated 09/13/21 @ 12:04 by Mary Mcghee MD) Essential thrombocytosis (Acute)- no h/o TIAs, CVAs, NE Normochromic anemia (Acute) HTN (hypertension) (Acute) GERD (gastroesophageal reflux disease) (Acute) C. difficile colitis (Acute) Abdominal pain (Acute) Diarrhea (Acute) Anxiety (Acute) Leg edema (Acute) Hypovitaminosis D (Acute) Constipation by delayed colonic transit (Acute) Hyperviscosity syndrome (Acute) Migraines (Acute) Inappropriate sinus tachycardia (Acute) Past Medical History Medical History Abdominal pain Anxiety C. difficile colitis Constipation by delayed colonic transit Diarrhea GERD (gastroesophageal reflux disease) Hyperviscosity syndrome Hypovitaminosis D Inappropriate sinus tachycardia Leg edema Migraines Family History Family History Father Liver failure Alcoholism Mother Hypertension Maternal Grandmother No problems noted. Maternal Grandfather Stroke Paternal Grandmother Breast cancer Maternal Aunt Fibroids Paternal Grandmother Breast cancer Family history of problems with anesthesia: No Surgical History Surgical History (Updated 11/24/21 @ 14:03 by Maribell Reid RN) History of bone marrow biopsy History of tonsillectomy and adenoidectomy History of Problems with Anesthesia: No Social History Social History Housing: Apartment Alcohol intake: never Patient Tobacco Use Status: Never used Tobacco e-Cigarette/Vaping Use: Never Used Second Hand Smoke Exposure: No Use of substances other than those prescribed or required for medical reasons: No Are you DNR?: No Advance Directives: No Advance Directives Information Provided: Yes Advance Directives on File: No service: No Current occupational status: unemployed Meds Allergies Allergy/AdvReac Type Severity Reaction Status Date / Time ondansetron Allergy Intermediate abdominal Verified 09/20/21 10:40 pain Penicillins [PCN] Allergy Intermediate Rash Verified 09/20/21 10:40 Home Medications Medication Instructions Recorded Confirmed Last Taken Type amitriptyline 50 mg tablet 50 mg PO BEDTIME 06/01/20 09/20/21 Unknown History aspirin 81 mg tablet,delayed 81 mg PO Q OTHER DAY 06/01/20 09/20/21 Unknown History release (Adult Low Dose Aspirin) betamethasone dipropionate 0.05 % 0.05 ea TOPICAL DAILY 06/01/20 09/20/21 Unknown History topical ointment cholecalciferol (vitamin D3) 50 50 mcg PO DAILY 06/01/20 09/20/21 Unknown History mcg (2,000 unit) capsule clonazepam 0.5 mg tablet 0.5 mg PO BEDTIME 06/01/20 09/20/21 Unknown History ferrous sulfate 325 mg (65 mg 325 mg PO DAILY 06/01/20 09/20/21 Unknown History iron) tablet ketoconazole 2 % shampoo 1 applic TOPICAL 2XW 06/01/20 09/20/21 Unknown History mometasone 0.1 % topical ointment 3 ea TOPICAL Q OTHER DAY PRN 06/01/20 09/20/21 Unknown History topiramate 50 mg tablet 100 mg PO BID 06/01/20 09/20/21 11/30/21 History viccblkuzs-dwzcvdagpdugq-kewftsuq 1 tab PO DAILY PRN 08/05/21 09/20/21 Unknown History 50 mg-325 mg-40 mg tablet promethazine 12.5 mg tablet 12.5 mg PO DAILY PRN 08/05/21 09/20/21 Unknown History propranolol 60 mg capsule,24 60 mg PO BID 08/05/21 09/20/21 11/30/21 History hr,extended release (Inderal LA) anagrelide 1 mg capsule 0.5 mg PO Q12H cap 09/09/21 09/20/21 Unknown History Exam Height,Weight and Vital Signs: Height 5 ft 3 in Weight 68.039 kg Vital Signs Temp Pulse Resp BP Pulse Ox 11/30/21 10:50 97.8 F 92 16 159/96 H 99 Pertinent Lab Results Pertinent Lab Results: Laboratory Tests 08/05/21 10/25/21 09:57 08:47 WBC 8.2 Hgb 10.2 L Hct 31.5 L Plt Count 251 Sodium 140 Potassium 3.8 Chloride 110 H Carbon Dioxide 22 BUN 8 L Creatinine 1.19 Lab Results 11/30/21 Range/Units 10:41 Urine Test NEGATIVE (NEGATIVE) Airway Mallampati Class: II TM Dist: >3cm Neck ROM: Full Heart: RRR Lungs: CTAB Assessment and Plan Assessment Anesthesia Assessment: Anesthesia Plan Discussed Final Anesthetic Review Family History of Problems with Anesthesia: No History of Problems with Anesthesia: No NPO: Yes ASA Class: II Final Preanesthetic Review: No Changes in Pt Med Stat, Meds/Allgs Chart Reviewed, Consent Obtained/Reviewed and Anes Risks/Benef Reviewed Patient Risk: Low Procedure Risk: Low Assessment/Block/Sedation in SS: Assess/Block/Sedation-SS Anesthetic Plan Anesthetic Plan: MAC: Disposition: Standard PACU
[2021-11-30 10:50] VITALS: BP 159/96; PULSE 92; RESP 16; TEMP 36.6; O2SAT 99
[2021-11-30 10:53] LABS: UPreg QC Valid YES; Urine Pregnancy NEGATIVE (NEGATIVE)
[2021-11-30] MEDS: Lactated Ringers 1,000 ML 100 ML IVCONT (10:59)
--- NOTE | 2021-11-30 11:11 | MHC.SHP ---
Pre-Procedural Eval Section A Date of Service: 11/30/21 Section B Chief Complaint: reflux,digestive problems Details of Present Illness: see H&P no changes Relevant Family History (Specify if Yes): No Relevant Social History: None Present Medications: see Short Stay Collaborative assessment Medical History: No relevant PMH History of Previous Operations: No relevant previous surgery Allergies: Allergies Allergy/AdvReac Type Severity Reaction Status Date / Time ondansetron Allergy Intermediate abdominal Verified 09/20/21 10:40 pain Penicillins [PCN] Allergy Intermediate Rash Verified 09/20/21 10:40 Review of Systems Sugical H&P ROS: Negative: Constitution, Cardiovascular, Respiratory, Neurological, Psychiatric, Hem-Onc, Allergic/Immunologic, Gastrointestinal, Genitourinary, Musculoskeletal, Integumentary, Endocrine and Eyes/Ears/Nose/Throat Exam Surgical H&P Exam: Normal: HEENT, Normal: Heart, Normal: Lungs, Normal: Extremities, Normal: Abdomen, Normal: Skin and Normal: Neurological Plan Diagnosis/Plan: Unchanged I have reviewed the history and physical and performed a pertinent physical examination on my patient. No changes have occurred unless specified.
[2021-11-30 11:55] VITALS: BP 108/67; PULSE 100; RESP 16; TEMP 36.7; O2SAT 100
[2021-11-30 12:10] VITALS: BP 135/76; PULSE 77; RESP 18; TEMP 36.7; O2SAT 100
--- NOTE | 2021-11-30 22:02 | OP_ITS ---
SURGEON: Sy Lam MD INDICATIONS: Gastroesophageal reflux disease and iron deficiency anemia. PREOPERATIVE DIAGNOSIS: POSTOPERATIVE DIAGNOSIS: PROCEDURE PERFORMED: ESTIMATED BLOOD LOSS: COMPLICATIONS: ANESTHESIA: ASSISTANTS: SPECIMENS: PROCEDURES PERFORMED: Upper endoscopy with biopsy, colonoscopy to the terminal ileum with biopsy. MEDICATIONS: Monitored anesthesia care. DESCRIPTION OF PROCEDURE: History and physical performed. The risks and benefits of the procedure were explained to the patient. Informed consent was obtained. The patient was placed in the left lateral decubitus position. A digital rectal exam was performed prior to the colonoscopy. First, the Olympus video gastroscope was introduced into the esophagus, stomach, and duodenum. Examination was performed. The scope was removed. She was repositioned for colonoscopy. Digital rectal exam was performed as described above. The Olympus pediatric video colonoscope was introduced into the rectum and advanced to the cecum without difficulty. The cecum was identified by transillumination, palpation, and identification of the ileocecal valve. Examination was performed. The scope was removed. She tolerated both procedures well and was returned to recovery area in stable condition. FINDINGS: Upper endoscopy:. 1. Esophagus: The esophagus was normal. The EG junction was slightly irregular. This was biopsied. There was no esophagitis. 2. Stomach: The stomach showed no evidence of masses, ulcers, or polyps. Antral biopsies were obtained to rule out Helicobacter pylori. 3. Duodenum: The bulb and second portion were normal. Duodenal biopsies were obtained because of the patient's history of iron deficiency anemia. COLONOSCOPY: The terminal ileum was normal. There was no evidence of ileitis. The visualized colonic mucosa was within normal limits without evidence of masses, ulcers, or polyps. There was no colitis. There was a large amount of liquid stool and undigested fibrous material, which limited the examination for detection of small polyps. This was washed and suctioned. No polyps were identified. Random biopsies were obtained from the right colon and sigmoid. Retroflexed examination was normal. IMPRESSION: 1. Normal colonoscopy. 2. Gastroesophageal reflux disease. RECOMMENDATIONS: Follow up the biopsy results. Consider repeat colonoscopy in 3 years because of the limitations of this exam. MD YOEL Krause/FELIPE / [id number] MTDD
== END 2021-11-30 13:23 | disposition home or self-care (01) ==
PROVIDERS: Nurse Practitioner; PCP Internal Medicine; Visit Provider Internal Medicine Gastroenterology
PROC: (CPT 45380; principal; 2021-11-30 11:40)
DX: K21.9 Gastro-esophageal reflux disease without esophagitis (principal); D50.9 Iron deficiency anemia, unspecified; R19.7 Diarrhea, unspecified; Z86.19 Personal history of other infectious and parasitic diseases; I10 Essential (primary) hypertension; D47.3 Essential (hemorrhagic) thrombocythemia; D75.839 Thrombocytosis, unspecified; F41.1 Generalized anxiety disorder; G43.909 Migraine, unspecified, not intractable, without status migrainosus; Z79.82 Long term (current) use of aspirin; Z79.899 Other long term (current) drug therapy; Z88.0 Allergy status to penicillin
CPT/HCPCS: 45380; 43239; 81025; 88305; 88342

== ENCOUNTER 2022-02-14 10:24 | Outpatient (REF) | payer OTHER, SELFPAY ==
--- NOTE | ~2022-02-14 | MM_ITS ---
EXAMINATION: MM SCREENING DIGITAL BREAST TOMOSYNTHESIS, BILATERAL CLINICAL INFORMATION: Screening. Asymptomatic. The lifetime risk of breast cancer based on the Tyrer-Cuzick Model is 14%. COMPARISON: Mammography: 02/12/2021, 02/10/2020, 12/06/2018 TECHNIQUE: Digital breast tomosynthesis is performed in both the craniocaudal and mediolateral oblique views along with computer-aided detection (CAD). Synthesized 2D images are generated from the tomosynthesis. FINDINGS: The breasts are heterogeneously dense, which may obscure small masses (ACR BI-RADS breast composition Category c). No significant changes from prior studies. There is no interval mass or architectural abnormality or developing density. No abnormal calcifications. The skin contours are smooth. MM/MM tomosynthesis screening BI IMPRESSION: No mammographic evidence of malignancy. ASSESSMENT: BI-RADS 1: Negative RECOMMENDATION: Routine annual mammography screening. This patient's information was entered into a reminder system with a target due date for their next mammogram.
== END 2022-02-14 10:25 | disposition home or self-care (01) ==
LOC: HO.MAMMO 10:24
PROVIDERS: PCP Internal Medicine; Visit Provider Internal Medicine
DX: Z12.31 Encounter for screening mammogram for malignant neoplasm of breast (principal)
CPT/HCPCS: 77063; 77067

== ENCOUNTER 2022-05-02 08:34 | Outpatient (REF) | payer OTHER, SELFPAY ==
[2022-05-02 08:52] LABS: MANUAL DIFF FLAG NO
[2022-05-02 09:00] LABS: Basophils Absolute Auto 0.1 X10*3/uL (0.0-0.2); Eosinophils Absolute Auto 0.2 X10*3/uL (0.0-0.4); Eosinophils Percent Auto 2.9 % (0-4); Hematocrit 30.8 % (37.0-47.0); Hemoglobin 10.1 g/dl (12.0-16.0); Imm Gran Abs Auto 0.09 X10*3/uL (0.00-0.03); Imm Gran Pct Auto 1.3 % (0.0-0.4); Lymphocytes Absolute Auto 2.2 X10*3/uL (1.2-4.9); Lymphocytes Percent Auto 31.5 % (20-40); Mean Corpuscular HGB Conc 32.8 g/dl (31.0-35.0); Mean Corpuscular Hemoglobin 29.2 pg (27.0-33.0); Mean Platelet Volume 10.7 fL (9.4-12.3); Monocytes Absolute Auto 0.4 X10*3/uL (0.1-1.2); Monocytes Percent Auto 5.2 % (2-11); Neutrophils Absolute Auto 3.9 x10*3/uL (2.0-8.3); Neutrophils Percent Auto 57.1 % (45-73); Platelet Count 229 X10*3/uL (160-400); Red Blood Count 3.46 X10*6/uL (4.20-5.50); Red Cell Distribution Width 17.5 % (11.0-16.0); White Blood Count 6.9 X10*3/uL (4.8-10.8)
[2022-05-02 09:40] LABS: Alanine Aminotransferase < 6 U/L (0-31); Albumin Level 4.2 g/dL (3.5-5.0); Alkaline Phosphatase 52 U/L (39-117); Anion Gap 13 (12-20); Aspartate Amino Transferase 9 U/L (5-31); Bilirubin Total 0.4 mg/dL (0.0-1.0); Blood Urea Nitrogen 8 mg/dL (9-16); Calcium 8.8 mg/dL (8.4-10.2); Carbon Dioxide 21 mmol/L (22-29); Chloride 110 mmol/L (96-108); Estimated Glomerular Filt Rate 53; Glucose Random 96 mg/dL (60-115); Sodium 140 mmol/L (135-145); Total Protein 6.7 g/dL (6.5-8.0)
== END 2022-05-02 08:35 | disposition home or self-care (01) ==
LOC: HO.LABR 08:34
PROVIDERS: PCP Internal Medicine; Visit Provider Internal Medicine Medical Oncology
DX: D47.3 Essential (hemorrhagic) thrombocythemia (principal)
CPT/HCPCS: 36415; 80053; 85025

== ENCOUNTER 2022-05-18 09:24 | Emergency (ER) | payer OTHER, SELFPAY ==
[2022-05-18 09:51] VITALS: BP 149/89; PULSE 78; RESP 18; TEMP 36.1; O2SAT 100; BMI 26.5
[2022-05-18 10:33] LABS: MANUAL DIFF FLAG NO
[2022-05-18 10:40] LABS: Basophils Absolute Auto 0.2 X10*3/uL (0.0-0.2); Basophils Percent Auto 1.9 % (0-2); Eosinophils Absolute Auto 0.2 X10*3/uL (0.0-0.4); Eosinophils Percent Auto 2.2 % (0-4); Hematocrit 34.3 % (37.0-47.0); Imm Gran Abs Auto 0.21 X10*3/uL (0.00-0.03); Imm Gran Pct Auto 2.1 % (0.0-0.4); Lymphocytes Absolute Auto 2.4 X10*3/uL (1.2-4.9); Lymphocytes Percent Auto 23.8 % (20-40); Mean Corpuscular HGB Conc 32.1 g/dl (31.0-35.0); Mean Corpuscular Hemoglobin 28.8 pg (27.0-33.0); Mean Corpuscular Volume 89.8 fL (80.0-98.0); Mean Platelet Volume 10.8 fL (9.4-12.3); Monocytes Absolute Auto 0.5 X10*3/uL (0.1-1.2); Neutrophils Absolute Auto 6.6 x10*3/uL (2.0-8.3); Platelet Count 354 X10*3/uL (160-400); Red Blood Count 3.82 X10*6/uL (4.20-5.50); Red Cell Distribution Width 17.2 % (11.0-16.0); White Blood Count 10.2 X10*3/uL (4.8-10.8)
[2022-05-18 10:51] LABS: Anion Gap 12 (12-20); Blood Urea Nitrogen 8 mg/dL (9-16); Calcium 9.3 mg/dL (8.4-10.2); Carbon Dioxide 24 mmol/L (22-29); Chloride 107 mmol/L (96-108); Creatinine Clr Calc Pharmacy 60.4; Estimated Glomerular Filt Rate 54; Glucose Random 112 mg/dL (60-115); Potassium 3.9 mmol/L (3.3-5.1); Sodium 139 mmol/L (135-145)
--- NOTE | 2022-05-18 16:49 | ED_ITS ---
HPI - Abdominal Pain General Chief Complaint: Abdominal Pain Stated Complaint: mass under belly button Time Seen by Provider: 05/18/22 16:22 Source: patient Mode of arrival: ambulatory Limitations: no limitations History of Present Illness HPI narrative: This is a 41-year-old female who presents with intermittent lump to the mid abdomen if she coughs or changes positions of her body since yesterday. There is no associated vomiting or fever or urinary symptoms or bowel changes. There is some slight pain occasionally. Patient denies any previous abdominal surgeries. Related Data Home Medications Medication Instructions Recorded Confirmed amitriptyline 50 mg tablet 50 mg PO BEDTIME 06/01/20 02/03/22 aspirin 81 mg tablet,delayed 81 mg PO Q OTHER DAY 06/01/20 02/03/22 release (Adult Low Dose Aspirin) betamethasone dipropionate 0.05 % 0.05 ea topical DAILY 06/01/20 02/03/22 topical ointment cholecalciferol (vitamin D3) 50 50 mcg PO DAILY 06/01/20 02/03/22 mcg (2,000 unit) capsule clonazepam 0.5 mg tablet 0.5 mg PO BEDTIME 06/01/20 02/03/22 ferrous sulfate 325 mg (65 mg 325 mg PO DAILY 06/01/20 02/03/22 iron) tablet ketoconazole 2 % shampoo 1 applic topical 2XW 06/01/20 02/03/22 mometasone 0.1 % topical ointment 3 ea topical Q OTHER DAY PRN Rash 06/01/20 02/03/22 topiramate 50 mg tablet 100 mg PO BID 06/01/20 02/03/22 oltxjwtvkf-wefawgmyedgmj-yyanawvb 1 tab PO DAILY PRN Migraine 08/05/21 02/03/22 50 mg-325 mg-40 mg tablet Headache promethazine 12.5 mg tablet 12.5 mg PO DAILY PRN Nausea 08/05/21 02/03/22 propranolol 60 mg capsule,24 60 mg PO BID 08/05/21 02/03/22 hr,extended release (Inderal LA) anagrelide 1 mg capsule 0.5 mg PO Q12H 09/09/21 02/03/22 minoxidil 2.5 mg tablet 2.5 mg PO DAILY 02/03/22 02/03/22 Previous Rx's Medication Instructions Recorded naproxen 500 mg tablet 500 mg PO BID PRN pain 30 days #60 02/05/21 tabs vitamin B12 1,000 mcg-folic acid 1 forest sublingual DAILY #60 ea 08/05/21 400 mcg sublingual lozenge loratadine 10 mg tablet (Allergy 10 mg PO DAILY 90 days #90 tabs 12/18/21 Relief (loratadine)) fluticasone propionate 50 1 spray intranasal DAILY 30 days 02/18/22 mcg/actuation nasal #16 grams spray,suspension (Flonase Allergy Relief) omeprazole 20 mg capsule,delayed 20 mg PO DAILY 90 days #90 caps 03/17/22 release furosemide 20 mg tablet 20 mg PO DAILY 90 days #90 tabs 03/30/22 Allergies Allergy/AdvReac Type Severity Reaction Status Date / Time ondansetron Allergy Intermediate abdominal Verified 02/03/22 09:57 pain Penicillins [PCN] Allergy Intermediate Rash Verified 02/03/22 09:57 ibuprofen [From Motrin] AdvReac Heartburn Verified 05/18/22 09:51 Review of Systems Review of Systems Yes all other systems are reviewed and are negative Constitutional: Reports no additional constitutional complaints, Denies body ache(s), Denies chills, Denies fever(s), Denies headache(s) and Denies weakness Eyes: Reports no additional eye complaints and Denies change in vision Reports system reviewed and no additional complaints, except as documented, Denies dizziness, Denies headache(s), Denies nasal congestion, Denies nasal discharge and Denies neck pain Cardiovascular: Reports no additional cardiovascular complaints, Denies chest pain, Denies leg edema and Denies dyspnea Respiratory: Reports no additional respiratory complaints, Denies cough and Denies dyspnea Gastrointestinal: Reports no additional gastrointestinal complaints, Reports abdominal pain, Denies diarrhea, Denies nausea and Denies vomiting Genitourinary: Reports no additional female genitourinary complaints and Denies urinary incontinence Musculoskeletal: Reports no additional musculoskeletal complaints, Denies back pain, Denies arthralgias, Denies joint swelling, Denies neck pain, Denies numbness and Denies tingling Skin/Breast: Reports system reviewed and no additional complaints, except as docu and Denies rash Reports system reviewed and no additional complaints, except as documented, Denies dizziness, Denies headache(s), Denies numbness, Denies tingling and Denies weakness [facility] Past Medical History Attestation statement: The following information was validated with the patient. Source: old records reviewed and nursing notes reviewed Medical History Abdominal pain Anxiety C. difficile colitis Constipation by delayed colonic transit Diarrhea GERD (gastroesophageal reflux disease) Hyperviscosity syndrome Hypovitaminosis D Inappropriate sinus tachycardia Leg edema Migraines Surgical History History of bone marrow biopsy History of tonsillectomy and adenoidectomy Family History Family History (Reviewed 05/18/22 @ 17: by Lety Turner NP) Father Alcoholism Liver failure Mother Hypertension Maternal Grandmother No problems noted. Maternal Grandfather Stroke Paternal Grandmother Breast cancer Maternal Aunt Fibroids Paternal Grandmother No problems noted. Social History Social History Household Members: Family Housing: Apartment Are you a primary senior resident care director to a significant other at home: No Do you presently have visiting nurse or other home services: No Alcohol intake: never Patient Tobacco Use Status: Never used Tobacco e-Cigarette/Vaping Use: Never Used Second Hand Smoke Exposure: No Advance Directives: No Advance Directives Information Provided: No service: No Current occupational status: unemployed Physical Exam ED Vital Signs: Vital Signs - 24 hr 05/18/22 09:51 Temperature 97.0 F Pulse Rate 78 Respiratory Rate 18 Blood Pressure 149/89 H Pulse Oximetry 100 Oxygen Delivery Method Room Air BMI result Body Mass Index 26.5 Const General: cooperative, healthy appearing, comfortable and no acute distress Orientation/consciousness: patient oriented x3 Limitations: no limitations HENMT Head: Yes normal to inspection Ears: hearing grossly normal bilaterally Eyes General: appearance normal, both eyes and all related structures Pupils: Equal, round and reactive pupils present Neck Neck: Yes normal visual inspection, Yes full ROM, Yes no lymphadenopathy and Yes no meningeal signs Chest Chest palpation & inspection: normal inspection of the chest Resp Effort & Inspection: normal respiratory effort Auscultation: clear to auscultation bilaterally Cardio Rate: regular rate Rhythm: regular rhythm Peripheral pulses: Peripheral pulses 2+ throughout GI Inspection: Yes normal to inspection Palpation (GI): Soft to palpation, nontender and Hernia present (soft-reducible easily ) umbilical General: Yes no CVA tenderness Back/Spine/Pelvis Back: no CVA tenderness Thoracic/Lumbar Spine: thoracic and lumbar spine normal to inspection Skin General skin exam: no rashes or lesions noted Neuro General: patient oriented x3, moves all extremities and no meningeal signs Cranial nerves: Yes Equal, round and reactive pupils present Cognition (Neuro): normal cognition Gait exam (Neuro): Normal gait present MDM - Abdominal Pain MDM Narrative Medical decision making narrative: 41-year-old female here with an umbilical hernia which is easily reducible and soft and not tender on exam. Low concern for incarcerated hernia. Labs ordered from triage are unremarkable. I did review signs and symptoms of incarcerated hernia and when the patient should return to the emergency room. She will be referred to General surgery for elective surgical repair. Eating and drinking. Comfortable plan for discharge home. Medical Records Attestation: I reviewed the patient's medical records. Lab Data Attestation: I reviewed the patient's lab results. Result diagrams: 05/18/22 10:29 05/18/22 10:29 Labs: Lab Results 05/18/22 05/18/22 Range/Units 10:29 10:29 WBC 10.2 (4.8-10.8) X10*3/uL RBC 3.82 L (4.20-5.50) X10*6/uL Hgb 11.0 L (12.0-16.0) g/dl Hct 34.3 L (37.0-47.0) % MCV 89.8 (80.0-98.0) fL MCH 28.8 (27.0-33.0) pg MCHC 32.1 (31.0-35.0) g/dl RDW 17.2 H (11.0-16.0) % Plt Count 354 D (160-400) X10*3/uL MPV 10.8 (9.4-12.3) fL Immature Gran % (Auto) 2.1 H (0.0-0.4) % Neut % (Auto) 65.0 (45-73) % Lymph % (Auto) 23.8 (20-40) % Clark % (Auto) 5.0 (2-11) % Eos % (Auto) 2.2 (0-4) % Baso % (Auto) 1.9 (0-2) % Lymph # (Auto) 2.4 (1.2-4.9) X10*3/uL Clark # (Auto) 0.5 (0.1-1.2) X10*3/uL Eos # (Auto) 0.2 (0.0-0.4) X10*3/uL Baso # (Auto) 0.2 (0.0-0.2) X10*3/uL Abs Immat Gran (auto) 0.21 H (0.00-0.03) X10*3/uL Absolute Neuts (auto) 6.6 (2.0-8.3) x10*3/uL Absolute Nucleated RBC 0.000 (0.0-0.012) X10*3/uL Nucleated RBC % (auto) 0.0 (0.0-0.2) /100WBC Sodium 139 (135-145) mmol/L Potassium 3.9 (3.3-5.1) mmol/L Chloride 107 (96-108) mmol/L Carbon Dioxide 24 (22-29) mmol/L Anion Gap 12 (12-20) BUN 8 L (9-16) mg/dL Creatinine 1.11 (0.5-1.4) mg/dL Estim Creat Clear Calc 60.4 Estimated GFR 54 Random Glucose 112 (60-115) mg/dL Calcium 9.3 (8.4-10.2) mg/dL Discharge Plan Discharge Clinical Impression: Hernia, umbilical Patient Disposition: Home, Self-Care Instructions: Umbilical Hernia (ED) Additional Instructions: Return for more severe pain, associated vomiting or fever Prescriptions: No Action naproxen 500 mg tablet 500 mg PO BID PRN (Reason: pain) 30 Days Qty: 60 2RF vitamin W38-bapkg acid 1,000-400 mcg Lozenge 1 forest SUBLINGUAL DAILY Qty: 60 6RF loratadine [Allergy Relief (loratadine)] 10 mg tablet 10 mg PO DAILY 90 Days Qty: 90 2RF fluticasone propionate [Flonase Allergy Relief] 50 mcg/actuation spray,suspension 1 spray intranasal DAILY 30 Days Qty: 16 3RF Rx Instructions: administer into each nostril omeprazole 20 mg capsule,delayed release(DR/EC) 20 mg PO DAILY 90 Days Qty: 90 0RF furosemide 20 mg tablet 20 mg PO DAILY 90 Days Qty: 90 1RF promethazine 12.5 mg Tablet 12.5 mg PO DAILY PRN (Reason: Nausea) oomnblgoeb-fbpxagijkglji-ljdp 50-325-40 mg tablet 1 tab PO DAILY PRN (Reason: Migraine Headache) propranolol [Inderal LA] 60 mg capsule,extended release 24 hr 60 mg PO BID minoxidil 2.5 mg Tablet 2.5 mg PO DAILY Rx Instructions: 1/2 tab daily cholecalciferol (vitamin D3) 50 mcg (2,000 unit) capsule 50 mcg PO DAILY ferrous sulfate 325 mg (65 mg iron) tablet 325 mg PO DAILY amitriptyline 50 mg tablet 50 mg PO BEDTIME clonazepam 0.5 mg tablet 0.5 mg PO BEDTIME topiramate 50 mg tablet 100 mg PO BID betamethasone dipropionate 0.05 % ointment 0.05 ea topical DAILY ketoconazole 2 % shampoo 1 applic topical 2XW mometasone 0.1 % ointment 3 ea topical Q OTHER DAY PRN (Reason: Rash) aspirin [Adult Low Dose Aspirin] 81 mg tablet,delayed release (DR/EC) 81 mg PO Q OTHER DAY anagrelide 1 mg capsule 0.5 mg PO Q12H Referrals: Mk Linares MD [Physician] - 2 weeks (as needed)
== END 2022-05-18 17:14 | disposition home or self-care (01) ==
PROVIDERS: Emergency Medicine; Emergency Provider Student in an Organized Health Care Education/Training Program; PCP Internal Medicine
DX: K42.9 Umbilical hernia without obstruction or gangrene (principal); R05.9 Cough, unspecified; Z79.899 Other long term (current) drug therapy
CPT/HCPCS: 36415; 80048; 85025; 99283

== ENCOUNTER → 2022-06-14 14:27 | Outpatient (BNVA) | payer OTHER, SELFPAY | PROVIDERS: PCP Internal Medicine; Visit Provider Surgery | DX: K42.9 Umbilical hernia without obstruction or gangrene (principal) | CPT/HCPCS: 99202 ==

== ENCOUNTER 2022-07-20 06:57 | Day surgery (SDC) | payer OTHER, SELFPAY ==
[2022-07-14 10:57] VITALS: BMI 26.4
--- NOTE | 2022-07-19 09:59 | HO.ANESPROP2 ---
Documented by User: Inez Morton NP 07/19/22 10:08 HPI - Anesthesia Eval Consult details Narrative: 41yo F for Hernia Repair Umbilical with mesh PMFSH Active Problems Active Problems: All Active Problems (Updated 07/14/22 @ 11:12 by Shaniqua Cr RN) Essential thrombocytosis (Acute) Normochromic anemia (Acute) HTN (hypertension) (Acute) Hernia, umbilical (Acute) Physical exam (Acute) GERD (gastroesophageal reflux disease) (Acute) C. difficile colitis (Acute) Abdominal pain (Acute) Diarrhea (Acute) Anxiety (Acute) Leg edema (Acute) Hypovitaminosis D (Acute) Constipation by delayed colonic transit (Acute) Hyperviscosity syndrome (Acute) Migraines (Acute) Inappropriate sinus tachycardia (Acute) Past Medical History Medical History Abdominal pain Anxiety C. difficile colitis Constipation by delayed colonic transit Diarrhea Essential thrombocytosis GERD (gastroesophageal reflux disease) Hyperviscosity syndrome Hypovitaminosis D Inappropriate sinus tachycardia Iron deficiency anemia Leg edema Migraines Family History Family History Father Alcoholism Liver failure Mother Hypertension Maternal Grandmother No problems noted. Maternal Grandfather Stroke Paternal Grandmother Breast cancer Maternal Aunt Fibroids Paternal Grandmother No problems noted. Family history of problems with anesthesia: No Surgical History Surgical History History of bone marrow biopsy History of tonsillectomy and adenoidectomy Hx of colonoscopy Hx of esophagogastroduodenoscopy History of Problems with Anesthesia: No Social History Social History Household Members: Family Household Members Other:: Mom Housing: Apartment Are you a primary healthcare insurance sales agent to a significant other at home: No Do you presently have visiting nurse or other home services: No Alcohol intake: never Patient Tobacco Use Status: Never used Tobacco e-Cigarette/Vaping Use: Never Used Second Hand Smoke Exposure: No Use of substances other than those prescribed or required for medical reasons: No Have you been hit, kicked, punched, or otherwise hurt by someone within the past year? If so, by whom?: No Are you DNR?: No Advance Directives: No Advance Directives Information Provided: Yes Advance Directives on File: No Advance Directives Date on File: 10/22/15 Recently lost weight without trying: No Eating poorly because of decreased appetite: No Nutrition Risks: No Nutritional Risk Patient : No FDLMP: Irreg : No Poor oral hygiene: No (Capped teeth) service: No Current occupational status: unemployed Cognitive needs: No Hearing needs: No Vision needs: Yes Meds Allergies Allergy/AdvReac Type Severity Reaction Status Date / Time ondansetron Allergy Intermediate abdominal Verified 07/13/22 07:57 pain Penicillins [PCN] Allergy Intermediate Rash Verified 07/13/22 07:57 ibuprofen [From Motrin] AdvReac Heartburn Verified 07/13/22 07:57 Home Medications Medication Instructions Recorded Confirmed Last Taken Type amitriptyline 50 mg tablet 50 mg PO BEDTIME 06/01/20 07/14/22 Unknown History cholecalciferol (vitamin D3) 50 50 mcg PO DAILY 06/01/20 07/14/22 Unknown History mcg (2,000 unit) capsule clonazepam 0.5 mg tablet 0.5 mg PO BEDTIME 06/01/20 07/14/22 Unknown History ferrous sulfate 325 mg (65 mg 325 mg PO DAILY 06/01/20 07/14/22 04/26/22 History iron) tablet ketoconazole 2 % shampoo 1 applic topical 2XW 06/01/20 07/14/22 Unknown History mometasone 0.1 % topical ointment 3 ea topical Q OTHER DAY PRN Rash 06/01/20 07/14/22 Unknown History vblnbbtzxl-mckzjqneejmrn-ilfghkrk 1 tab PO DAILY PRN Migraine 08/05/21 07/14/22 Unknown History 50 mg-325 mg-40 mg tablet Headache promethazine 12.5 mg tablet 12.5 mg PO DAILY PRN Nausea 08/05/21 07/14/22 Unknown History propranolol 60 mg capsule,24 60 mg PO BID 08/05/21 07/14/22 07/20/22 History hr,extended release (Inderal LA) anagrelide 1 mg capsule 0.5 mg PO Q12H 09/09/21 07/14/22 07/19/22 History minoxidil 2.5 mg tablet 2.5 mg PO DAILY 02/03/22 07/14/22 Unknown History betamethasone dipropionate 0.05 % topical 06/14/22 07/13/22 Unknown History lotion topiramate 100 mg tablet 100 mg PO BID 06/14/22 07/14/22 07/20/22 History aspirin 81 mg tablet,delayed 81 mg PO DAILY 07/13/22 07/14/22 04/26/22 History release (Adult Low Dose Aspirin) cyanocobalamin (vitamin B-12) 1,000 mcg PO DAILY 07/13/22 07/14/22 Unknown History 1,000 mcg tablet (Vitamin B-12) Exam Exam Date and Time: July 19, 2022 0959 Height,Weight and Vital Signs: Height 5 ft 3 in Weight 67.585 kg Pertinent Lab Results Pertinent Lab Results: Laboratory Tests 05/18/22 05/18/22 10:29 10:29 WBC 10.2 Hgb 11.0 L Hct 34.3 L Plt Count 354 D Sodium 139 Potassium 3.9 Chloride 107 Carbon Dioxide 24 BUN 8 L Creatinine 1.11 Narrative Narrative: EKG 08/2021 NSR @ 70 Assessment and Plan Assessment Anesthesia Assessment: Chart Reviewed Final Anesthetic Review Family History of Problems with Anesthesia: No History of Problems with Anesthesia: No Documented by User: Mary Márquez MD 07/20/22 09:30 [facility] Past Medical History Medical History Abdominal pain Anxiety C. difficile colitis Constipation by delayed colonic transit Diarrhea Essential thrombocytosis GERD (gastroesophageal reflux disease) Hyperviscosity syndrome Hypovitaminosis D Inappropriate sinus tachycardia Iron deficiency anemia Leg edema Migraines Family History Family History Father Alcoholism Liver failure Mother Hypertension Maternal Grandmother No problems noted. Maternal Grandfather Stroke Paternal Grandmother Breast cancer Maternal Aunt Fibroids Paternal Grandmother No problems noted. Surgical History Surgical History History of bone marrow biopsy History of tonsillectomy and adenoidectomy Hx of colonoscopy Hx of esophagogastroduodenoscopy Social History Social History Household Members: Family Household Members Other:: Mom Housing: Apartment Are you a primary healthcare insurance sales agent to a significant other at home: No Do you presently have visiting nurse or other home services: No Alcohol intake: never Patient Tobacco Use Status: Never used Tobacco e-Cigarette/Vaping Use: Never Used Second Hand Smoke Exposure: No Use of substances other than those prescribed or required for medical reasons: No Have you been hit, kicked, punched, or otherwise hurt by someone within the past year? If so, by whom?: No Are you DNR?: No Advance Directives: No Advance Directives Information Provided: Yes Advance Directives on File: No Advance Directives Date on File: 10/22/15 Recently lost weight without trying: No Eating poorly because of decreased appetite: No Nutrition Risks: No Nutritional Risk Patient : No FDLMP: Irreg : No Poor oral hygiene: No (Capped teeth) service: No Current occupational status: unemployed Cognitive needs: No Hearing needs: No Vision needs: Yes Meds Allergies Allergy/AdvReac Type Severity Reaction Status Date / Time ondansetron Allergy Intermediate abdominal Verified 07/13/22 07:57 pain Penicillins [PCN] Allergy Intermediate Rash Verified 07/13/22 07:57 ibuprofen [From Motrin] AdvReac Heartburn Verified 07/13/22 07:57 Home Medications Medication Instructions Recorded Confirmed Last Taken Type amitriptyline 50 mg tablet 50 mg PO BEDTIME 06/01/20 07/14/22 Unknown History cholecalciferol (vitamin D3) 50 50 mcg PO DAILY 06/01/20 07/14/22 Unknown History mcg (2,000 unit) capsule clonazepam 0.5 mg tablet 0.5 mg PO BEDTIME 06/01/20 07/14/22 Unknown History ferrous sulfate 325 mg (65 mg 325 mg PO DAILY 06/01/20 07/14/22 04/26/22 History iron) tablet ketoconazole 2 % shampoo 1 applic topical 2XW 06/01/20 07/14/22 Unknown History mometasone 0.1 % topical ointment 3 ea topical Q OTHER DAY PRN Rash 06/01/20 07/14/22 Unknown History djwoxkvatg-fspkxmbmjetea-jdaofceh 1 tab PO DAILY PRN Migraine 08/05/21 07/14/22 Unknown History 50 mg-325 mg-40 mg tablet Headache promethazine 12.5 mg tablet 12.5 mg PO DAILY PRN Nausea 08/05/21 07/14/22 Unknown History propranolol 60 mg capsule,24 60 mg PO BID 08/05/21 07/14/22 07/20/22 History hr,extended release (Inderal LA) anagrelide 1 mg capsule 0.5 mg PO Q12H 09/09/21 07/14/22 07/19/22 History minoxidil 2.5 mg tablet 2.5 mg PO DAILY 02/03/22 07/14/22 Unknown History betamethasone dipropionate 0.05 % topical 06/14/22 07/13/22 Unknown History lotion topiramate 100 mg tablet 100 mg PO BID 06/14/22 07/14/22 07/20/22 History aspirin 81 mg tablet,delayed 81 mg PO DAILY 07/13/22 07/14/22 04/26/22 History release (Adult Low Dose Aspirin) cyanocobalamin (vitamin B-12) 1,000 mcg PO DAILY 07/13/22 07/14/22 Unknown History 1,000 mcg tablet (Vitamin B-12) Exam Airway Mallampati Class: II TM Dist: >3cm Neck ROM: Full Partial: Lower Loose/Missing/Broken Teeth: No Heart: RRR Lungs: CTA Assessment and Plan Assessment Anesthesia Assessment: Anesthesia Plan Discussed Final Anesthetic Review NPO: Yes ASA Class: II Final Preanesthetic Review: Meds/Allgs Chart Reviewed, Consent Obtained/Reviewed and Anes Risks/Benef Reviewed Patient Risk: Low Procedure Risk: Low Anesthetic Plan Anesthetic Plan: GA Disposition: Standard PACU
[2022-07-20 07:02] VITALS: BP 148/86; PULSE 77; RESP 18; TEMP 36.6; O2SAT 99
[2022-07-20 07:19] LABS: UPreg QC Valid YES; Urine Pregnancy NEGATIVE (NEGATIVE)
[2022-07-20] MEDS: Lactated Ringers 1,000 ML 100 ML IVCONT (07:50)
[2022-07-20] MEDS: vancomycin HCL 1,000 MG in 0.9 % Sodium Chloride 250 ML 270 MG IV (07:50)
--- NOTE | 2022-07-20 08:49 | MHC.SHP ---
Pre-Procedural Eval Section A Date of Service: 07/20/22 The patient is an INPATIENT: No Changes since office visit: Yes Patient answered all questions; No Cold of Flu in the past 2 weeks, No New Medical Problems and No Changes in Medication The History & Physical has been completed within 30 days and I have reviewed it.: No Section B Chief Complaint: Umbilical hernia without obstruction or gangrene Details of Present Illness: No change is symptoms since office evaluation Relevant Family History (Specify if Yes): No Relevant Social History: None Present Medications: see Short Stay Collaborative assessment Medical History: Significant History (thrombocytosis, HTN, GERD, Anxiety) History of Previous Operations: No relevant previous surgery Allergies: Allergies Allergy/AdvReac Type Severity Reaction Status Date / Time ondansetron Allergy Intermediate abdominal Verified 07/13/22 07:57 pain Penicillins [PCN] Allergy Intermediate Rash Verified 07/13/22 07:57 ibuprofen [From Motrin] AdvReac Heartburn Verified 07/13/22 07:57 Review of Systems Sugical H&P ROS: Negative: Constitution, Cardiovascular, Respiratory, Neurological, Psychiatric, Hem-Onc, Allergic/Immunologic, Gastrointestinal, Genitourinary, Musculoskeletal, Integumentary, Endocrine and Eyes/Ears/Nose/Throat Exam Surgical H&P Exam: Normal: HEENT, Normal: Heart, Normal: Lungs, Normal: Extremities, Normal: Skin and Normal: Neurological and Significant Findings: Abdomen (umbilical hernia ) Plan Diagnosis/Plan: Unchanged I have reviewed the history and physical and performed a pertinent physical examination on my patient. No changes have occurred unless specified. Time Spent With Patient Time: Total time managing care of this patient today _10_ minutes.
--- NOTE | 2022-07-20 09:39 | P.OP_ITS ---
Operative Note Operative Note Date of Service: 07/20/22 Narrative: Preoperative diagnosis:Umbilical hernia Postoperative diagnosis: umbilical hernia Procedure: repair of umbilical hernia with mesh Surgeon: Mk Linares MD Dev Technical Mgr: Rosalina Pedersen PA-C Anesthesia: general LMA Indications for procedure: 41-year-old female patient presenting with complaints of abdominal pain the umbilicus found to have an umbilical hernia which is reducible. Operative findings: Umbilical hernia with incarcerated preperitoneal fat. Defect measured approximately 2 cm in diameter repair with a 4.3 cm round Ventralex mesh. Specimen: None Estimated blood loss: less than 2 mL Complications: none Procedure details: patient was brought to the OR placed in a supine position. After administering general anesthesia patient's abdomen was prepped with ChloraPrep and draped in a sterile fashion. A surgical time-out was called the consent confirmed. Patient received preoperative antibiotics and Venodyne boots were in place. Local anesthesia infiltrated in a periumbilical location. An incision was made in the lower midline to occlude of small portion of the umbilicus. This carried out through subcutaneous tissue up to the hernia sac. Hernia sac was then dissected down to the fascial defect. The fascial defect was then further defined using electrocautery and the contents of the hernia reduced into the of preperitoneal space. A preperitoneal space was then dissected using an open Ray-Charla sponge and electrocautery. The 4.3 cm round Ventralex mesh was then obtained. This was deployed into the preperitoneal space. approximately 2 mL of Zenrelef was then infiltrated over the mesh. The fascia was then closed over the mesh using [id number] 1 Tycron sutures incorporating the mesh in the closure. Additional Zenrelef was then applied over the fascia. Subcutaneous tissue occluding umbilical skin was then reapproximated using 3-0 Polysorb sutures. Dermis was reapproximated using interrupted 3-0 Polysorb sutures. Skin was then closed using a running subc uticular 4-0 Polysorb suture. Steri-Strips, 2 x 2 gauze and Tegaderm were then applied. The patient tolerated the procedure well. Sponge, instrument, and needle counts reported as correct. The patient was transferred to PACU in stable condition.
[2022-07-20 09:50] VITALS: BP 134/80; PULSE 87; RESP 12; TEMP 36.9; O2SAT 100
[2022-07-20 09:55] VITALS: BP 144/85; PULSE 81; RESP 13; O2SAT 100
[2022-07-20 10:00] VITALS: BP 143/81; PULSE 76; RESP 13; O2SAT 100
[2022-07-20 10:05] VITALS: BP 147/78; PULSE 80; RESP 14; O2SAT 100
[2022-07-20 10:20] VITALS: BP 145/83; PULSE 74; RESP 14; TEMP 36.6; O2SAT 100
== END 2022-07-20 10:48 | disposition home or self-care (01) ==
PROVIDERS: Nurse Practitioner; PCP Internal Medicine; Visit Provider Surgery
PROC: (CPT 49592; principal; 2022-07-20 08:50)
DX: K42.0 Umbilical hernia with obstruction, without gangrene (principal); K59.01 Slow transit constipation; K21.9 Gastro-esophageal reflux disease without esophagitis; R00.0 Tachycardia, unspecified; R60.0 Localized edema; E55.9 Vitamin D deficiency, unspecified; F41.1 Generalized anxiety disorder; Z79.899 Other long term (current) drug therapy; Z88.0 Allergy status to penicillin; Z88.8 Allergy status to other drugs, medicaments and biological substances
CPT/HCPCS: 49592; 81025; C1781; C9088; J1100; J2250; J2405; J3010; J3370

== ENCOUNTER → 2022-07-29 09:28 | Outpatient (BNVA) | payer OTHER, SELFPAY | PROVIDERS: PCP Internal Medicine; Visit Provider Surgery | DX: Z13.89 Encounter for screening for other disorder (principal) ==

== ENCOUNTER → 2022-08-26 08:26 | Outpatient (BNVA) | payer OTHER, SELFPAY | PROVIDERS: PCP Internal Medicine; Visit Provider Surgery | DX: Z13.89 Encounter for screening for other disorder (principal) ==

== ENCOUNTER 2022-11-07 08:24 | Outpatient (REF) | payer OTHER, SELFPAY ==
[2022-11-07 08:40] LABS: MANUAL DIFF FLAG NO
[2022-11-07 09:57] LABS: Basophils Absolute Auto 0.2 X10*3/uL (0.0-0.2); Basophils Percent Auto 2.2 % (0-2); Eosinophils Absolute Auto 0.2 X10*3/uL (0.0-0.4); Eosinophils Percent Auto 2.2 % (0-4); Hematocrit 31.3 % (37.0-47.0); Hemoglobin 10.3 g/dl (12.0-16.0); Imm Gran Abs Auto 0.11 X10*3/uL (0.00-0.03); Imm Gran Pct Auto 1.5 % (0.0-0.4); Lymphocytes Absolute Auto 2.4 X10*3/uL (1.2-4.9); Lymphocytes Percent Auto 33.4 % (20-40); Mean Corpuscular HGB Conc 32.9 g/dl (31.0-35.0); Mean Corpuscular Hemoglobin 30.2 pg (27.0-33.0); Mean Corpuscular Volume 91.8 fL (80.0-98.0); Mean Platelet Volume 10.9 fL (9.4-12.3); Monocytes Absolute Auto 0.4 X10*3/uL (0.1-1.2); Monocytes Percent Auto 5.6 % (2-11); NRBC Pct Auto 0.3 /100WBC (0.0-0.2); Neutrophils Percent Auto 55.1 % (45-73); Platelet Count 294 X10*3/uL (160-400); Red Blood Count 3.41 X10*6/uL (4.20-5.50); Red Cell Distribution Width 16.9 % (11.0-16.0); White Blood Count 7.3 X10*3/uL (4.8-10.8)
[2022-11-07 10:54] LABS: Alanine Aminotransferase 9 U/L (0-31); Albumin Level 4.2 g/dL (3.5-5.0); Alkaline Phosphatase 58 U/L (39-117); Anion Gap 10 (12-20); Aspartate Amino Transferase 11 U/L (5-31); Bilirubin Total 0.3 mg/dL (0.0-1.0); Blood Urea Nitrogen 9 mg/dL (9-16); Calcium 8.8 mg/dL (8.4-10.2); Carbon Dioxide 23 mmol/L (22-29); Chloride 112 mmol/L (96-108); Cholesterol 202 mg/dL; Estimated Glomerular Filt Rate 45; Glucose Fasting 92 mg/dL (60-99); HDL Cholesterol 34 mg/dL; LDL Cholesterol Calculated 144 mg/dl; Potassium 4.4 mmol/L (3.3-5.1); Sodium 141 mmol/L (135-145); Total Protein 6.5 g/dL (6.5-8.0); Triglycerides 121 mg/dL
[2022-11-07 11:13] LABS: Vitamin D 25-OH Total 44.6 ng/mL (>30)
[2022-11-07 11:26] LABS: Folate 16.9 ng/mL (> or = 4.0); Vitamin B12 1917 pg/mL (200-900)
--- NOTE | 2022-11-07 14:40 | MHC.HEMONC ---
Pt called for her CBC results and they were given to her. Her hgb is unchanged. She had no further questions.
== END 2022-11-07 08:25 | disposition home or self-care (01) ==
LOC: HO.LAB 08:24
PROVIDERS: PCP Internal Medicine; Visit Provider Internal Medicine Medical Oncology
DX: D47.3 Essential (hemorrhagic) thrombocythemia (principal); E55.9 Vitamin D deficiency, unspecified; D64.9 Anemia, unspecified; E53.8 Deficiency of other specified B group vitamins; I10 Essential (primary) hypertension
CPT/HCPCS: 36415; 80053; 80061; 82306; 82607; 82746; 85025

== ENCOUNTER 2022-12-20 13:25 | Outpatient (REF) | payer OTHER, SELFPAY ==
[2022-12-27 09:44] LABS: HPV mRNA E6/E7 rflx Not Detected (Not Detected)
== END 2022-12-20 13:26 | disposition home or self-care (01) ==
LOC: HO.LNP 13:25
PROVIDERS: Visit Provider Advanced Practice Midwife
DX: Z01.419 Encounter for gynecological examination (general) (routine) without abnormal findings (principal); Z11.51 Encounter for screening for human papillomavirus (HPV)
CPT/HCPCS: 87624; 88142

== ENCOUNTER 2023-02-17 09:41 | Outpatient (REF) | payer OTHER, SELFPAY ==
--- NOTE | ~2023-02-17 | MM_ITS ---
EXAMINATION: MM SCREENING DIGITAL BREAST TOMOSYNTHESIS, BILATERAL CLINICAL INFORMATION: Screening. Asymptomatic. The lifetime risk of breast cancer based on the Tyrer-Cuzick Model is 13.6%. COMPARISON: Mammography: This study is compared with prior exams dating back to 2019. TECHNIQUE: Digital breast tomosynthesis is performed in both the craniocaudal and mediolateral oblique views along with computer-aided detection (CAD). Synthesized 2D images are generated from the tomosynthesis. FINDINGS: The breasts are heterogeneously dense, which may obscure small masses (ACR BI-RADS breast composition Category c). There are no significant masses, abnormal calcifications, or other abnormalities. MM/MM tomosynthesis screening BI IMPRESSION: No mammographic evidence of malignancy. ASSESSMENT: BI-RADS BI-RADS 1 - Negative RECOMMENDATION: Routine annual mammography screening. 1 year F/U This examination should not preclude the clinical evaluation of a suspicious palpable abnormality. This patient's information was entered into a reminder system with a target due date for their next mammogram.
== END 2023-02-17 09:42 | disposition home or self-care (01) ==
LOC: HO.MAMMO 09:41
PROVIDERS: PCP Internal Medicine; Visit Provider Internal Medicine
DX: Z12.31 Encounter for screening mammogram for malignant neoplasm of breast (principal)
CPT/HCPCS: 77063; 77067

== ENCOUNTER → 2023-02-17 10:30 | Outpatient (BNV) | payer OTHER, SELFPAY | PROVIDERS: PCP Internal Medicine; Visit Provider Radiology Diagnostic Radiology | DX: Z12.31 Encounter for screening mammogram for malignant neoplasm of breast (principal) | CPT/HCPCS: 77063; 77067 ==

== ENCOUNTER 2023-02-21 09:30 | Outpatient (AMB) | payer OTHER, SELFPAY ==
--- NOTE | 2023-02-21 09:43 | A.OFFPC_ITS ---
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 Accompanied by: Self / Same As Patient Allergies ondansetron Allergy (Intermediate, Verified 02/21/23 10:01) abdominal pain Penicillins [PCN] Allergy (Intermediate, Verified 02/21/23 10:01) Rash ibuprofen [From Motrin] Adverse Reaction (Verified 02/21/23 10:01) Heartburn Medication List - Last Reconciled 02/21/23 by Mary Mcghee MD amitriptyline 50 mg PO BEDTIME anagrelide 0.5 mg (1/2 x 1 mg) PO Q12H betamethasone dipropionate 0.05% 1 appl topical DAILY nhxaxvoegd-brjrzakanrfrk-vwpg 50-325-40 mg 1 tab PO DAILY PRN cholecalciferol (vitamin D3) 50 mcg PO DAILY clonazepam 0.5 mg PO BEDTIME cyanocobalamin (vitamin B-12) (Vitamin B-12) 1,000 mcg PO DAILY ferrous sulfate 325 mg PO DAILY fluticasone propionate 50 mcg/actuation (Flonase Allergy Relief) 1 spray intranasal DAILY 30 days folic acid 1 mg PO DAILY furosemide 20 mg PO DAILY 90 days loratadine (Allergy Relief (loratadine)) 10 mg PO DAILY 90 days minoxidil 2.5 mg PO DAILY mometasone 0.1% 3 ea topical Q OTHER DAY PRN naproxen 500 mg PO BID PRN 30 days omeprazole 20 mg PO DAILY 90 days promethazine 12.5 mg PO DAILY PRN propranolol ER (Inderal LA) 60 mg PO BID topiramate 100 mg PO BID Tobacco use date assessed: 10/17/22 Dental Screening Dental Screen Date: 02/21/23 Did you have a dental visit in the last 12 months?: No Did you have a dental problem in the last 6 months where you did not have access to dental care?: Yes Was dental information given to patient?: Patient has dentist HPI HPI Comments History of Present Illness Details This is a 42-year-old female with essential thrombocytosis, iron- deficiency anemia, migraines and GERD that comes today for follow-up on her conditions. Thrombocytosis has been stable and follow by Hematology-Oncology. Hemoglobin still low. No active bleeding. Migraines happen few times a week and has been stable with amitriptyline as migraine prophylaxis. GERD stable with PPIs. No chest pain or shortness of breath. [facility] Medical History (Updated 02/21/23 @ 10:44 by Mary Mcghee MD) Abdominal pain Anxiety C. difficile colitis Constipation by delayed colonic transit Diarrhea Essential thrombocytosis GERD (gastroesophageal reflux disease) Hyperviscosity syndrome Hypovitaminosis D Inappropriate sinus tachycardia Iron deficiency anemia Leg edema Migraines Surgical History History of bone marrow biopsy History of tonsillectomy and adenoidectomy History of umbilical hernia repair (07/20/22) Hx of colonoscopy Hx of esophagogastroduodenoscopy Family History Father Alcoholism Liver failure Mother Hypertension Maternal Grandmother No problems noted. Maternal Grandfather Stroke Paternal Grandmother Breast cancer Maternal Aunt Fibroids Paternal Grandmother No problems noted. Social History Household Members: Family Household Members Other:: Mom Housing: Apartment Are you a primary ambulatory care nurse to a significant other at home: No Do you presently have visiting nurse or other home services: No Alcohol intake: never Patient Tobacco Use Status: Never used Tobacco e-Cigarette/Vaping Use: Never Used Second Hand Smoke Exposure: No Advance Directives Date on File: 10/22/15 service: No Current occupational status: unemployed Cognitive needs: No Hearing needs: No Vision needs: Yes Questionnaire Thrive Questionnaire Date Thrive assessed: 10/17/22 MILLY-7 AMB Questionnaire MILLY-7 Date MILLY - 7 assessed: 10/17/22 Source: Developed by Drs. Sorin Rodrigues, Ruth Duncan, Lucien Whaley and colleagues, with an educational fabio from [employer] Review of Systems Const All systems reviewed & are unremarkable except as noted in HPI and below Eyes Reports no additional complaints, Denies change in vision and Denies other visual disturbances Card Denies chest pain at rest, Denies chest pain with activity, Denies edema, Denies irregular heart rhythm, Denies claudication, Denies dyspnea, Denies dyspnea on exertion, Denies orthopnea, Denies paroxysmal nocturnal dyspnea and Denies slow heart rate Resp Denies cough, Denies dyspnea and Denies dyspnea on exertion GI Denies abdominal pain, Denies change in bowel habits, Denies excessive flatus, Denies nausea and Denies vomiting Denies urinary incontinence, Denies urinary hesitancy and Denies urinary urgency Musc Denies abnormal gait, Denies atrophy, Denies deformity and Denies limited range of motion Skin/Breast Denies bleeding lesions, Denies changing lesions and Denies rash Neuro Denies abnormal gait, Denies confusion and Denies lack of coordination Psych Denies confusion Physical exam (Primary Care) Vital Signs: Last Vital Signs Pulse 85 02/21/23 09:47 BP 140/90 H 02/21/23 09:47 Pulse Ox 97 02/21/23 09:47 Oxygen Delivery Method Room Air 02/21/23 09:47 BMI result Body Mass Index 26.8 Tobacco/Smoking Status: Tobacco use Status Tobacco use date assessed 10/17/22 02/21/23 09:43 Patient Tobacco Use Status Never used Tobacco 02/21/23 09:43 e-Cigarette/Vaping Use Never Used 02/21/23 09:43 Thrive Assessment: Date of Thrive Assessment Date Thrive assessed 10/17/22 02/21/23 09:43 Const General: No confusion Orientation/consciousness: patient oriented x3 and No confusion Eyes General: appearance normal, both eyes and all related structures Eyelids: Yes eyelids normal Conjunctivae: conjunctivae normal Neck Neck: Yes normal visual inspection and Yes supple Resp Effort & Inspection: normal respiratory effort Auscultation: clear to auscultation bilaterally Cardio Jugular venous distension: no JVD Rate: regular rate Rhythm: regular rhythm Heart sounds: S1 normal heart sound present and S2 normal heart sound present Neuro General: patient oriented x3, no focal motor deficits and No confusion Extrem General: Yes full ROM Assessment and Plan Assessment & Plan (1) Essential thrombocytosis: Code(s): D47.3 - Essential (hemorrhagic) thrombocythemia Plan: Continue anagrelide. (2) GERD (gastroesophageal reflux disease): Code(s): K21.9 - Gastro-esophageal reflux disease without esophagitis Plan: Continue PPIs as needed. (3) Migraines: Code(s): G43.909 - Migraine, unspecified, not intractable, without status migrainosus Qualifiers: Migraine type: without aura Status migrainosus presence: without status migrainosus Intractability: not intractable Qualified Code(s): G43.009 - Migraine without aura, not intractable, without status migrainosus Plan: Continue amitriptyline for migraine prophylaxis. (4) Iron deficiency anemia: Code(s): D50.9 - Iron deficiency anemia, unspecified Plan: Continue ferrous sulfate. Orders: Orders Lipid Panel 5 Months E78.5 - Hyperlipidemia, unspecified Medications: Discontinued folic acid 1 mg PO DAILY 90 tabs 6RF Coding Level of Care Code Est Pt Level 4 (52620) Diagnoses Essential thrombocytosis D47.3 GERD (gastroesophageal reflux disease) K21.9 Migraines G43.009 Migraine type: without aura Status migrainosus presence: without status migrainosus Intractability: not intractable Iron deficiency anemia D50.9 Time Spent (min) 21
[2023-02-21 09:47] VITALS: BP 140/90; PULSE 85; O2SAT 97; BMI 26.8
[2023-02-21 10:42] VITALS: BP 138/80
== END 2023-02-21 10:11 | disposition home or self-care (01) ==
PROVIDERS: PCP Internal Medicine; Visit Provider Internal Medicine
DX: D47.3 Essential (hemorrhagic) thrombocythemia (principal); K21.9 Gastro-esophageal reflux disease without esophagitis; G43.009 Migraine without aura, not intractable, without status migrainosus; D50.9 Iron deficiency anemia, unspecified
CPT/HCPCS: 99214

== ENCOUNTER 2023-06-02 08:39 | Outpatient (REF) | payer OTHER, SELFPAY ==
[2023-06-02 10:15] LABS: Leukocytes Stool Qualitative NEGATIVE (NEGATIVE)
[2023-06-02 12:02] LABS: Adenovirus F 40/41 Not Detected (Not Detect.); Astrovirus Not Detected (Not Detect.); Campylobacter Not Detected (Not Detect.); Cryptosporidium Not Detected (Not Detect.); Cyclospora cayetanensis Not Detected (Not Detect.); E. coli EAEC Not Detected (Not Detect.); E. coli EPEC Not Detected (Not Detect.); E. coli ETEC Not Detected (Not Detect.); E. coli STEC Not Detected (Not Detect.); Entamoeba histolytica Not Detected (Not Detect.); Giardia lamblia Not Detected (Not Detect.); Norovirus GI/GII Not Detected (Not Detect.); Plesiomonas shigelloides Not Detected (Not Detect.); Rotavirus A Not Detected (Not Detect.); Salmonella Not Detected (Not Detect.); Sapovirus Not Detected (Not Detect.); Shigella sp./EIEC Not Detected (Not Detect.); Vibrio Not Detected (Not Detect.); Vibrio Cholerae Not Detected (Not Detect.); Yersinia enterocolitica Not Detected (Not Detect.)
[2023-06-10 20:34] LABS: Calprotectin, Fecal 356 mcg/g
== END 2023-06-02 08:40 | disposition home or self-care (01) ==
LOC: HO.LNP 08:39
PROVIDERS: Visit Provider Internal Medicine Gastroenterology
DX: R14.0 Abdominal distension (gaseous) (principal)
CPT/HCPCS: 83993; 87177; 87209; 87507; 89055

== ENCOUNTER 2023-07-24 08:23 | Outpatient (REF) | payer OTHER, SELFPAY | END 2023-07-24 08:24 | disposition home or self-care (01) | LOC: HO.LAB 08:23 | PROVIDERS: PCP Internal Medicine; Visit Provider Internal Medicine | DX: E78.5 Hyperlipidemia, unspecified (principal) | CPT/HCPCS: 36415; 80061 ==

== ENCOUNTER 2023-07-27 08:29 | Outpatient (AMB) | payer OTHER, SELFPAY ==
--- NOTE | 2023-07-27 08:31 | MHC.PC.OV ---
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 Accompanied by: Self / Same As Patient Allergies ondansetron Allergy (Intermediate, Verified 07/27/23 08:51) abdominal pain Penicillins [PCN] Allergy (Intermediate, Verified 07/27/23 08:51) Rash ibuprofen [From Motrin] Adverse Reaction (Verified 07/27/23 08:51) Heartburn Medication List - Last Reconciled 07/27/23 by Mary Mcghee MD amitriptyline 50 mg PO BEDTIME anagrelide 0.5 mg (1/2 x 1 mg) PO Q12H betamethasone dipropionate 0.05% 1 appl topical DAILY sbwinsmuoj-qpbzzaolfffea-kjap 50-325-40 mg 1 tab PO DAILY PRN cholecalciferol (vitamin D3) 50 mcg PO DAILY clonazepam 0.5 mg PO BEDTIME cyanocobalamin (vitamin B-12) (Vitamin B-12) 1,000 mcg PO DAILY ferrous sulfate 325 mg PO DAILY fluticasone propionate 50 mcg/actuation (Flonase Allergy Relief) 1 spray intranasal DAILY 30 days folic acid 1 mg PO DAILY furosemide 20 mg PO DAILY 90 days loratadine (Allergy Relief (loratadine)) 10 mg PO DAILY 90 days minoxidil 2.5 mg PO DAILY mometasone 0.1% 3 ea topical Q OTHER DAY PRN naproxen 500 mg PO BID PRN 30 days omeprazole 20 mg PO DAILY 90 days promethazine 12.5 mg PO DAILY PRN propranolol ER (Inderal LA) 60 mg PO BID topiramate 100 mg PO BID Tobacco use date assessed: 07/27/23 Dental Screening Dental Screen Date: 07/27/23 Did you have a dental visit in the last 12 months?: Yes Did you have a dental problem in the last 6 months where you did not have access to dental care?: No Was dental information given to patient?: Patient has dentist HPI HPI Comments History of Present Illness Details This is a 42-year-old female with essential thrombocytosis that comes for her physical exam. Essential thrombocytosis is follow by Hematology-Oncology and has been stable with anagrelide. Last mammogram was February 2023 and was normal. Last Pap smear was 2022 and was normal with HPV negative. Last colonoscopy was November 2021 which was normal but had an episode in April 2023 of daily diarrhea and Gastroenterology will do colonoscopy this month. No chest pain or shortness of breath. Compliant with medications. Labs were discussed and cholesterol markedly improved. [facility] Medical History Essential thrombocytosis Iron deficiency anemia GERD (gastroesophageal reflux disease) C. difficile colitis Abdominal pain Diarrhea Anxiety Leg edema Hypovitaminosis D Constipation by delayed colonic transit Hyperviscosity syndrome Migraines Inappropriate sinus tachycardia Surgical History History of umbilical hernia repair (07/20/22) Hx of esophagogastroduodenoscopy Hx of colonoscopy History of bone marrow biopsy History of tonsillectomy and adenoidectomy Family History Father Alcoholism Liver failure Mother Hypertension Maternal Grandmother No problems noted. Maternal Grandfather Stroke Paternal Grandmother Breast cancer Maternal Aunt Fibroids Paternal Grandmother No problems noted. Social History Household Members: Family Household Members Other:: Mom Housing: Apartment Are you a primary rn transitional care to a significant other at home: No Do you presently have visiting nurse or other home services: No Alcohol intake: never Patient Tobacco Use Status: Never used Tobacco e-Cigarette/Vaping Use: Never Used Second Hand Smoke Exposure: No Advance Directives Date on File: 10/22/15 service: No Current occupational status: unemployed Cognitive needs: No Hearing needs: No Vision needs: Yes Questionnaire PHQ-9 Over the last 2 weeks, how often have you been bothered by any of the following problems? 1. Little interest or pleasure in doing things: not at all 2. Feeling down, depressed, or hopeless: not at all 3. Trouble falling or staying asleep, or sleeping too much: not at all 4. Feeling tired or having little energy: not at all 5. Poor appetite or overeating: not at all 6. Feeling bad about yourself - or that you are a failure or have let yourself or your family down: not at all 7. Trouble concentrating on things, such as reading the newspaper or watching television: not at all 8. Moving or speaking so slowly that other people could have noticed. Or the opposite - being so fidgety or restless that you have been moving around a lot more than usual: not at all 9. Thoughts that you would be better off or of hurting yourself in some way: not at all Total score: 0 Depression Screening Interpretation: Negative Depression Screening Done: Yes 41365 - PHQ-9 Billing: Yes Source: Developed by Drs. Sorin Rodrigues, Ruth Duncan, Lucien Whaley and colleagues, with an educational fabio from [employer]. Thrive Questionnaire Date Thrive assessed: 07/27/23 I am a: Patient What is your living situation today?: I have a steady place to live Within the past 12 months, did the food you bought not last and you didn't have the money to get more?: Never true Within the past 12 months, did you worry whether your food would run out before you got money to buy more?: Never true Do you have trouble paying for medicines?: No Do you have trouble getting transportation to medical appointments?: No Do you have trouble paying your heating and electricity bill?: No Do you have trouble taking care of your child, family member or friend?: No Do you have trouble with day-to-day activities such as bathing, preparing meals, shopping, managing finances, etc.?: No Are you currently unemployed and looking for a job?: No Are you interested in more education?: No Please select the resources that you would like help with: None Currently or been in a relationship where the following occur: no concerns reported AUDIT C Alcohol Use Questionnaire (AUDIT-C) 1. How often do you have a drink containing alcohol?: Never Total Score: 0 Score Reviewed/Action Taken: No MILLY-7 AMB Questionnaire MILLY-7 Date MILLY - 7 assessed: 07/27/23 Feeling nervous, anxious, or on edge: 0 = Not at all Not being able to stop or control worryin = Not at all Worrying too much about different things: 0 = Not at all Trouble relaxin = Not at all Being so restless that it is hard to sit still: 0 = Not at all Becoming easily annoyed or irritable: 0 = Not at all Feeling afraid as if something awful might happen: 0 = Not at all Total MILLY-7 score (0-4 normal; 5-9 mild; 10-14 moderate; 15-21 severe): 0 Source: Developed by Drs. Sorin Rodrigues, Ruth Duncan, Lucien Whaley and colleagues, with an educational fabio from [employer]. MILLY-7 Assessment Billing MILLY-7 Assessment Tool: MILLY-7 Assessment 72902 Review of Systems Const All systems reviewed & are unremarkable except as noted in HPI and below Eyes Reports no additional complaints, Denies change in vision and Denies other visual disturbances Card Denies chest pain at rest, Denies chest pain with activity, Denies edema, Denies irregular heart rhythm, Denies claudication, Denies dyspnea, Denies dyspnea on exertion, Denies orthopnea, Denies paroxysmal nocturnal dyspnea and Denies slow heart rate Resp Denies cough, Denies dyspnea and Denies dyspnea on exertion GI Denies abdominal pain, Denies change in bowel habits, Denies excessive flatus, Denies nausea and Denies vomiting Denies urinary incontinence, Denies urinary hesitancy and Denies urinary urgency Musc Denies abnormal gait, Denies atrophy, Denies deformity and Denies limited range of motion Skin/Breast Denies bleeding lesions, Denies changing lesions and Denies rash Neuro Denies abnormal gait, Denies behavioral changes, Denies confusion and Denies lack of coordination Psych Denies behavioral changes and Denies confusion Physical exam (Primary Care) Vital Signs: Last Vital Signs BP 126/80 07/27/23 08:34 BMI result Body Mass Index 26.6 Tobacco/Smoking Status: Tobacco use Status Tobacco use date assessed 07/27/23 07/27/23 08:39 Patient Tobacco Use Status Never used Tobacco 07/27/23 08:39 e-Cigarette/Vaping Use Never Used 07/27/23 08:39 PHQ-9: PHQ-9 Score PHQ-9: Total score 0 07/27/23 08:39 Depression Screening Interpretation: Negative Thrive Assessment: Date of Thrive Assessment Date Thrive assessed 07/27/23 07/27/23 08:39 Currently or been in a relationship where the following occur: no concerns reported Const General: No confusion Orientation/consciousness: patient oriented x3 and No confusion HENMT Head: Yes normal to inspection, Yes normocephalic and Yes atraumatic Ears: external ears normal Eyes General: appearance normal, both eyes and all related structures Eyelids: Yes eyelids normal Conjunctivae: conjunctivae normal Neck Neck: Yes normal visual inspection and Yes supple Resp Effort & Inspection: normal respiratory effort Auscultation: clear to auscultation bilaterally Cardio Jugular venous distension: no JVD Rate: regular rate Rhythm: regular rhythm Heart sounds: S1 normal heart sound present and S2 normal heart sound present GI Inspection: Yes normal to inspection Palpation (GI): Soft to palpation and nontender Auscultation: normal bowel sounds Skin General skin exam: no rashes or lesions noted Neuro General: patient oriented x3, no focal motor deficits and No confusion Extrem General: Yes full ROM Psych Appearance: grossly normal Assessment and Plan Assessment & Plan (1) Physical exam: Code(s): Z00.00 - Encounter for general adult medical examination without abnormal findings Plan: Repeat in a year. (2) Essential thrombocytosis: Code(s): D47.3 - Essential (hemorrhagic) thrombocythemia Plan: Continue anagrelide. Follow-up with Hematology-Oncology. Coding Level of Care Code Est Pt Prev Care 40-64y(73132) Diagnoses Physical exam Z00.00 Essential thrombocytosis D47.3 Additional Codes MILLY-7 Assessment Billing - MILLY-7 Assessment Tool: MILLY-7 Assessment 06207 ([id number]) Time Spent (min) 33
[2023-07-27 08:34] VITALS: BP 126/80; BMI 26.6
== END 2023-07-27 09:03 | disposition home or self-care (01) ==
PROVIDERS: Visit Provider Internal Medicine
DX: Z00.00 Encounter for general adult medical examination without abnormal findings (principal); D47.3 Essential (hemorrhagic) thrombocythemia
CPT/HCPCS: 99396

== ENCOUNTER 2023-08-11 06:13 | Day surgery (SDC) | payer OTHER, SELFPAY ==
[2023-08-09 11:46] VITALS: BMI 27.3
--- NOTE | 2023-08-10 10:22 | P.CONAN_ITS ---
Documented by User: Inez Morton NP 08/10/23 10:24 HPI - Anesthesia Eval Consult details Narrative: 42yo F for Colonoscopy PMFSH Active Problems Active Problems: All Active Problems (Updated 08/09/23 @ 11:46 by Maribell Reid RN) Cervical cancer screening (Acute) Well woman exam with routine gynecological exam (Acute) Otitis media (Acute) Physical exam (Acute) Hernia, umbilical (Acute) HTN (hypertension) (Acute) Normochromic anemia (Acute) Essential thrombocytosis (Acute) Iron deficiency anemia (Acute) GERD (gastroesophageal reflux disease) (Acute) Abdominal pain (Acute) Diarrhea (Acute) Anxiety (Acute) Leg edema (Acute) Hypovitaminosis D (Acute) Constipation by delayed colonic transit (Acute) Hyperviscosity syndrome (Acute) Migraines (Acute) Inappropriate sinus tachycardia (Acute) Past Medical History Medical History HTN (hypertension) Essential thrombocytosis Iron deficiency anemia GERD (gastroesophageal reflux disease) C. difficile colitis Abdominal pain Diarrhea Anxiety Leg edema Hypovitaminosis D Constipation by delayed colonic transit Hyperviscosity syndrome Migraines Inappropriate sinus tachycardia Family History Family History Father Alcoholism Liver failure Mother Hypertension Maternal Grandmother No problems noted. Maternal Grandfather Stroke Paternal Grandmother Breast cancer Maternal Aunt Fibroids Paternal Grandmother No problems noted. Family history of problems with anesthesia: No Surgical History Surgical History History of umbilical hernia repair (07/20/22) Hx of esophagogastroduodenoscopy Hx of colonoscopy History of bone marrow biopsy History of tonsillectomy and adenoidectomy History of Problems with Anesthesia: No Social History Social History Household Members: Family Household Members Other:: Mom Housing: Apartment Are you a primary director of managed care to a significant other at home: No Do you presently have visiting nurse or other home services: No Alcohol intake: never Patient Tobacco Use Status: Never used Tobacco e-Cigarette/Vaping Use: Never Used Second Hand Smoke Exposure: No Are you DNR?: No Advance Directives: No Advance Directives Information Provided: Yes Advance Directives Date on File: 10/22/15 Nutrition Risks: No Nutritional Risk FDLMP: last month service: No Current occupational status: unemployed Cognitive needs: No Hearing needs: No Vision needs: Yes Meds Allergies Allergy/AdvReac Type Severity Reaction Status Date / Time ondansetron Allergy Intermediate abdominal Verified 08/11/23 06:29 pain Penicillins [PCN] Allergy Intermediate Rash Verified 08/11/23 06:29 ibuprofen [From Motrin] AdvReac Heartburn Verified 08/11/23 06:29 Home Medications Medication Instructions Recorded Confirmed Last Taken Type amitriptyline 50 mg tablet 50 mg PO BEDTIME 06/01/20 08/09/23 Unknown History cholecalciferol (vitamin D3) 50 50 mcg PO DAILY 06/01/20 08/09/23 Unknown History mcg (2,000 unit) capsule clonazepam 0.5 mg tablet 0.5 mg PO BEDTIME 06/01/20 08/09/23 Unknown History ferrous sulfate 325 mg (65 mg 325 mg PO DAILY 06/01/20 08/09/23 04/26/22 History iron) tablet mometasone 0.1 % topical ointment 3 ea topical Q OTHER DAY PRN Rash 06/01/20 08/09/23 Unknown History qtyimqaguo-xyzpsmezuntmd-odeyvhqd 1 tab PO DAILY PRN Migraine 08/05/21 08/09/23 Unknown History 50 mg-325 mg-40 mg tablet Headache promethazine 12.5 mg tablet 12.5 mg PO DAILY PRN Nausea 08/05/21 08/09/23 Unknown History propranolol 60 mg capsule,24 60 mg PO BID 08/05/21 08/09/23 07/20/22 History hr,extended release (Inderal LA) minoxidil 2.5 mg tablet 2.5 mg PO DAILY 02/03/22 08/09/23 Unknown History betamethasone dipropionate 0.05 % 1 appl topical DAILY 06/14/22 08/09/23 Unknown History lotion topiramate 100 mg tablet 100 mg PO BID 06/14/22 08/09/23 07/20/22 History Exam Height,Weight and Vital Signs: Height 5 ft 3 in Weight 69.853 kg Pertinent Lab Results Pertinent Lab Results: Laboratory Tests 08/08/23 08:32 WBC 10.9 H Hgb 9.9 L Hct 30.5 L Plt Count 274 D Sodium 139 Potassium 4.0 Chloride 110 H Carbon Dioxide 24 BUN 13 Creatinine 1.11 Assessment and Plan Assessment Anesthesia Assessment: Chart Reviewed Final Anesthetic Review Family History of Problems with Anesthesia: No History of Problems with Anesthesia: No Documented by User: Mary Márquez MD 08/11/23 07:44 PMFSH Past Medical History Medical History HTN (hypertension) Essential thrombocytosis Iron deficiency anemia GERD (gastroesophageal reflux disease) C. difficile colitis Abdominal pain Diarrhea Anxiety Leg edema Hypovitaminosis D Constipation by delayed colonic transit Hyperviscosity syndrome Migraines Inappropriate sinus tachycardia Family History Family History Father Alcoholism Liver failure Mother Hypertension Maternal Grandmother No problems noted. Maternal Grandfather Stroke Paternal Grandmother Breast cancer Maternal Aunt Fibroids Paternal Grandmother No problems noted. Surgical History Surgical History History of umbilical hernia repair (07/20/22) Hx of esophagogastroduodenoscopy Hx of colonoscopy History of bone marrow biopsy History of tonsillectomy and adenoidectomy Social History Social History Household Members: Family Household Members Other:: Mom Housing: Apartment Are you a primary director of managed care to a significant other at home: No Do you presently have visiting nurse or other home services: No Alcohol intake: never Patient Tobacco Use Status: Never used Tobacco e-Cigarette/Vaping Use: Never Used Second Hand Smoke Exposure: No Are you DNR?: No Advance Directives: No Advance Directives Information Provided: Yes Advance Directives Date on File: 10/22/15 Nutrition Risks: No Nutritional Risk FDLMP: last month service: No Current occupational status: unemployed Cognitive needs: No Hearing needs: No Vision needs: Yes Meds Allergies Allergy/AdvReac Type Severity Reaction Status Date / Time ondansetron Allergy Intermediate abdominal Verified 08/11/23 06:29 pain Penicillins [PCN] Allergy Intermediate Rash Verified 08/11/23 06:29 ibuprofen [From Motrin] AdvReac Heartburn Verified 08/11/23 06:29 Home Medications Medication Instructions Recorded Confirmed Last Taken Type amitriptyline 50 mg tablet 50 mg PO BEDTIME 06/01/20 08/09/23 Unknown History cholecalciferol (vitamin D3) 50 50 mcg PO DAILY 06/01/20 08/09/23 Unknown History mcg (2,000 unit) capsule clonazepam 0.5 mg tablet 0.5 mg PO BEDTIME 06/01/20 08/09/23 Unknown History ferrous sulfate 325 mg (65 mg 325 mg PO DAILY 06/01/20 08/09/23 04/26/22 History iron) tablet mometasone 0.1 % topical ointment 3 ea topical Q OTHER DAY PRN Rash 06/01/20 08/09/23 Unknown History pzjchvxvuo-qxeuzmeijgpoy-ivrayprc 1 tab PO DAILY PRN Migraine 08/05/21 08/09/23 Unknown History 50 mg-325 mg-40 mg tablet Headache promethazine 12.5 mg tablet 12.5 mg PO DAILY PRN Nausea 08/05/21 08/09/23 Unknown History propranolol 60 mg capsule,24 60 mg PO BID 08/05/21 08/09/23 07/20/22 History hr,extended release (Inderal LA) minoxidil 2.5 mg tablet 2.5 mg PO DAILY 02/03/22 08/09/23 Unknown History betamethasone dipropionate 0.05 % 1 appl topical DAILY 06/14/22 08/09/23 Unknown History lotion topiramate 100 mg tablet 100 mg PO BID 06/14/22 08/09/23 07/20/22 History Exam Airway Mallampati Class: II TM Dist: >3cm Neck ROM: Full Loose/Missing/Broken Teeth: No Heart: RRR Lungs: CTA Assessment and Plan Assessment Anesthesia Assessment: Anesthesia Plan Discussed Final Anesthetic Review NPO: Yes ASA Class: III Final Preanesthetic Review: Meds/Allgs Chart Reviewed, Consent Obtained/Reviewed and Anes Risks/Benef Reviewed Patient Risk: Intermediate Procedure Risk: Low Anesthetic Plan Anesthetic Plan: MAC: Disposition: Standard PACU
[2023-08-11 06:26] VITALS: BMI 25.7
[2023-08-11 06:30] LABS: UPreg QC Valid YES; Urine Pregnancy NEGATIVE (NEGATIVE)
[2023-08-11] MEDS: Lactated Ringers 1,000 ML 100 ML IVCONT (06:33)
[2023-08-11 06:34] VITALS: BP 132/74; PULSE 86; RESP 18; TEMP 36.4; O2SAT 98
--- NOTE | 2023-08-11 07:10 | PC.NURSE ---
2 IV attempts by author. insertion by kandice tang rn
--- NOTE | 2023-08-11 07:52 | MHC.SHP ---
Pre-Procedural Eval Section A Date of Service: 08/11/23 Section B Chief Complaint: Other fecal abnormalities Details of Present Illness: see H&P no changes Relevant Family History (Specify if Yes): No Relevant Social History: None Present Medications: see Short Stay Collaborative assessment Medical History: No relevant PMH History of Previous Operations: No relevant previous surgery Allergies: Allergies Allergy/AdvReac Type Severity Reaction Status Date / Time ondansetron Allergy Intermediate abdominal Verified 08/11/23 06:29 pain Penicillins [PCN] Allergy Intermediate Rash Verified 08/11/23 06:29 ibuprofen [From Motrin] AdvReac Heartburn Verified 08/11/23 06:29 Review of Systems Sugical H&P ROS: Negative: Constitution, Cardiovascular, Respiratory, Neurological, Psychiatric, Hem-Onc, Allergic/Immunologic, Gastrointestinal, Genitourinary, Musculoskeletal, Integumentary, Endocrine and Eyes/Ears/Nose/Throat Exam Surgical H&P Exam: Normal: HEENT, Normal: Heart, Normal: Lungs, Normal: Extremities, Normal: Abdomen, Normal: Skin and Normal: Neurological Plan Diagnosis/Plan: Unchanged I have reviewed the history and physical and performed a pertinent physical examination on my patient. No changes have occurred unless specified. Time Spent With Patient Time: Total time managing care of this patient today ____ minutes.
[2023-08-11 08:28] VITALS: BP 110/74; PULSE 93; RESP 14; TEMP 36.7; O2SAT 100
[2023-08-11 08:43] VITALS: BP 121/70; PULSE 80; RESP 16; TEMP 36.8; O2SAT 99
--- NOTE | 2023-08-11 09:57 | OP_ITS ---
DATE OF SERVICE: 08/11/2023 SURGEON: Sy Lam MD INDICATIONS: Abnormal findings in stool. PREOPERATIVE DIAGNOSIS: POSTOPERATIVE DIAGNOSIS: PROCEDURE PERFORMED: Colonoscopy to the terminal ileum with biopsy. ESTIMATED BLOOD LOSS: COMPLICATIONS: ANESTHESIA: Monitored anesthesia care. ASSISTANTS: SPECIMENS: DESCRIPTION OF PROCEDURE: A history and physical performed. The risks and benefits of the procedure were explained to the patient. Informed consent was obtained. The patient was placed in left lateral decubitus position. A digital rectal exam was performed and was found to be normal. The Olympus pediatric video colonoscope was introduced into the rectum and advanced to the cecum. The cecum was identified by transillumination, palpation, and identification of ileocecal valve. Examination was performed. The scope was removed. She tolerated the procedure well and was taken to recovery area in stable condition. FINDINGS: The terminal ileum was examined, appeared normal. This was biopsied. The visualized colonic mucosa was normal. The quality of the prep was good. No polyps were identified. No colitis was seen. Retroflexed examination was normal. Random biopsies were taken throughout the colon to rule out microscopic colitis. IMPRESSION: Normal colonoscopy. RECOMMENDATION: Follow up biopsy results. Screening colonoscopy in 10 years. MD YOEL Krause/FELIPE / [id number] MTDD
== END 2023-08-11 09:16 | disposition home or self-care (01) ==
PROVIDERS: Nurse Practitioner; PCP Internal Medicine; Visit Provider Internal Medicine Gastroenterology
PROC: 0DJD8ZZ Inspection of Lower Intestinal Tract, Via Natural or Artificial Opening Endoscopic (ICD-10-PCS; CPT 45378; principal; 2023-08-11 08:10)
DX: R19.5 Other fecal abnormalities (principal); I10 Essential (primary) hypertension; D50.9 Iron deficiency anemia, unspecified
CPT/HCPCS: 45380; 81025; 88305; J2704

== ENCOUNTER 2023-10-24 11:31 | Day surgery (SDC) | payer OTHER, SELFPAY ==
--- NOTE | ~2023-10-24 | CT_ITS ---
Essential thrombocytosis PROCEDURES: 1. Limited preprocedure CT of the pelvis. Permanent images saved in PACS. 2. 11 g bone marrow core biopsy of the right posterior iliac spine 3. 11 g bone marrow aspirate of the right posterior iliac spine CLINICIANS: Ketan Gage PA-C MEDICATIONS: -Versed 1.5 mg, Fentanyl 75 mcg, and lidocaine 1% 10 mL SQ -Antibiotics: None -For additional details, please see nursing flowsheet. COMPLICATIONS: None ESTIMATED BLOOD LOSS: < 5 ml CONTRAST: None SPECIMENS: 11 g core placed in formalin. Bone marrow aspirate placed in EDTA and sodium heparin tubes MODERATE SEDATION TIME: 28 min PROCEDURE NOTE: The procedure, risks, benefits, and alternatives were carefully explained to the patient and written informed consent was obtained. The patient was placed prone on the CT table. A timeout was performed. A limited CT of the pelvis was performed to localize posterior iliac spine and choose appropriate needle entry and trajectory. The patient was prepped and draped in usual sterile fashion. The skin, subcutaneous tissues, and periosteum were anesthetized with lidocaine. Under CT guidance, an 11-gauge bone marrow biopsy needle was advanced into the posterior iliac spine, with the tip positioned slightly cephalad. An 11-gauge core biopsy of the bone marrow was performed and was placed in formalin. Next, the 11-gauge bone marrow biopsy needle was then advanced into the posterior iliac spine, under CT guidance, with the tip positioned slightly caudal. A bone marrow aspirate was performed. Despite multiple attempts to reposition the needle, only 5 mL of marrow could be aspirated. The specimen was placed in the provided EDTA and sodium heparin tubes. The needle was removed. A dry dressing was applied and secured with Tegaderm. There were no immediate complications. The patient was stable after the procedure and was transferred to the post anesthesia care unit. The procedure was done under moderate sedation with a dedicated nurse for monitoring of vital signs. CT/CT biopsy asp core bone marrow Impression: CT-guided bone marrow biopsy and aspirate This procedure was performed by Ketan Gage PA-C and supervised by Dr. Cruz.
[2023-10-24 11:55] VITALS: BMI 26.7
[2023-10-24 12:14] LABS: UPreg QC Valid YES; Urine Pregnancy NEGATIVE (NEGATIVE)
[2023-10-24 12:20] VITALS: BP 136/85; PULSE 82; RESP 18; TEMP 36.7; O2SAT 99
--- NOTE | 2023-10-24 13:03 | MHC.SHP ---
Pre-Procedural Eval Section A - 24 Hr Update-Section A only Date of Service: 10/24/23 Section B - Complete if H&P > 30 days Chief Complaint: bone marrow bio/aspiration,thrombocythemia Details of Present Illness: essential thrombocytosis Relevant Family History (Specify if Yes): No Relevant Social History: None Present Medications: see Short Stay Collaborative assessment Medical History: Significant History History of Previous Operations: No relevant previous surgery Allergies: Allergies Allergy/AdvReac Type Severity Reaction Status Date / Time ondansetron Allergy Intermediate abdominal Verified 10/24/23 11:48 pain Penicillins [PCN] Allergy Intermediate Rash Verified 10/24/23 11:48 ibuprofen [From Motrin] AdvReac Heartburn Verified 10/24/23 11:48 Review of Systems Sugical H&P ROS: Negative: Constitution, Cardiovascular, Respiratory and Integumentary Exam Surgical H&P Exam: Normal: Heart, Normal: Lungs, Normal: Skin and Normal: Neurological and Not Evaluated: HEENT Plan Diagnosis/Plan: Unchanged I have reviewed the history and physical and performed a pertinent physical examination on my patient. No changes have occurred unless specified. Time Spent With Patient Time: Total time managing care of this patient today ____ minutes.
[2023-10-24 13:55] VITALS: BP 123/71; PULSE 72; RESP 16; TEMP 36.6; O2SAT 98
[2023-10-24 14:10] VITALS: BP 133/79; PULSE 85; RESP 16; TEMP 36.6; O2SAT 99
[2023-10-24 14:38] LABS: Bone Marrow SEE SEPARATE REPORT
== END 2023-10-24 14:27 | disposition home or self-care (01) ==
LOC: HO.SSS 11:31
PROVIDERS: Pathology Anatomic Pathology & Clinical Pathology; Physician Assistant Surgical; Radiology Vascular & Interventional Radiology; PCP Internal Medicine; Visit Provider Internal Medicine Medical Oncology
PROC: (CPT 38221; principal; 2023-10-24 13:00)
DX: D47.3 Essential (hemorrhagic) thrombocythemia (principal); G43.909 Migraine, unspecified, not intractable, without status migrainosus; I10 Essential (primary) hypertension; D50.9 Iron deficiency anemia, unspecified; R42 Dizziness and giddiness; Z79.899 Other long term (current) drug therapy; Z88.0 Allergy status to penicillin; Z88.8 Allergy status to other drugs, medicaments and biological substances; Z98.890 Other specified postprocedural states
CPT/HCPCS: 36415; 38222; 81025; 81455; 88184; 88185; 88237; 88264; 88305; 88311; 88313; 88342; 99152; 99153; J2250; J2310; J3010

== ENCOUNTER → 2023-10-24 12:46 | Outpatient (BNV) | payer OTHER, SELFPAY | PROVIDERS: PCP Internal Medicine; Visit Provider Physician Assistant Surgical | DX: D47.3 Essential (hemorrhagic) thrombocythemia (principal) | CPT/HCPCS: 38222; 77012; 99152 ==

== ENCOUNTER 2023-11-10 12:31 | Outpatient (RCR) | payer OTHER, SELFPAY ==
[2023-11-10 13:05] VITALS: BP 128/75; PULSE 76
== END 2023-12-04 09:03 | disposition home or self-care (01) ==
LOC: HO.PT 12:31
PROVIDERS: PCP Internal Medicine; Visit Provider Internal Medicine Medical Oncology
DX: H81.22 Vestibular neuronitis, left ear (principal)
CPT/HCPCS: 97161

== ENCOUNTER 2023-12-08 06:01 | Outpatient (REF) | payer OTHER, SELFPAY ==
--- NOTE | ~2023-12-08 | CT_ITS ---
EXAMINATION: CT ABDOMEN AND PELVIS WITH CONTRAST CLINICAL INFORMATION: Myelofibrosis. COMPARISON: 01/20/2021 TECHNIQUE: Multidetector volumetric images were obtained from the superior aspect of the liver through the pubic symphysis following administration 85 mL of Omnipaque 350 intravenous contrast. Sagittal and coronal reformatted images were obtained on the technologist's workstation. Oral contrast: No This CT examination was performed using dose optimization techniques as appropriate, variously including the following: *Automated exposure control *Adjustment of mA and/or kV according to patient size (this includes techniques or standardized protocols for targeted exams where dose is matched to indication/reason for exam; i.e. extremities or head) *Use of iterative reconstruction technique DLP: 424 mGy-cm FINDINGS: LUNG BASES: 1.0 cm right breast nodule. LIVER, GALLBLADDER, AND BILIARY TREE: The liver is normal in size and contour. The liver measures 16.3 cm in sagittal dimension. No suspicious hepatic lesion or biliary ductal dilatation is present. The gallbladder is unremarkable with no evidence of radiopaque gallstones, gallbladder wall thickening, or obvious pericholecystic inflammatory changes. PANCREAS: Unremarkable. SPLEEN: Not enlarged. The spleen measures 10.8 cm in sagittal dimension. Splenule. No focal lesion. ADRENAL GLANDS: No adrenal mass. KIDNEYS AND URETERS: The kidneys are normal in size, shape, and attenuation. No hydronephrosis, hydroureter, or calculi seen. No perinephric stranding. BLADDER: Unremarkable. GASTROINTESTINAL TRACT: No small bowel obstruction. ABDOMINAL WALL: No significant hernia is appreciated. LYMPH NODES: No bulky lymphadenopathy. VASCULAR: Normal caliber abdominal aorta. PELVIC VISCERA: The uterus appears to lie transversely. Possible 1 cm fibroid. OSSEOUS STRUCTURES: No destructive bone lesions. CT/CT abdomen pelvis w IV con IMPRESSION: No acute abnormality in the abdomen or pelvis. No hepatosplenomegaly. Apparent transverse lie of the uterus with possible 1 cm fibroid. 1.0 cm right breast nodule. Advise correlation with recent mammogram.
[2023-12-08] MEDS: Barium Sulfate Oral (Mocha) 450 ML ORAL.SUSP 900 ML PO (10:18)
[2023-12-08] MEDS: iohexoL 350 MG/ML 100 ML INFUS..BTL 85 ML IV (10:19)
== END 2023-12-08 06:02 | disposition home or self-care (01) ==
LOC: HO.CT 06:01
PROVIDERS: PCP Internal Medicine; Visit Provider Internal Medicine Medical Oncology
DX: D47.3 Essential (hemorrhagic) thrombocythemia (principal)
CPT/HCPCS: 74177; Q9967

== ENCOUNTER 2023-12-14 09:00 | Outpatient (RCR) | payer OTHER, SELFPAY ==
[2023-10-25 08:48] VITALS: BP 145/84; PULSE 83; RESP 16; TEMP 36.7; O2SAT 98
[2023-10-25] MEDS: 0.9 % Sodium Chloride Flush 10 ML SYRINGE 5 ML IVFLUSH (08:55)
[2023-10-25] MEDS: Iron Sucrose Complex 200 MG in 0.9 % Sodium Chloride 100 ML 440 MG IV (08:55)
[2023-11-03 08:49] VITALS: BP 136/81; PULSE 75; RESP 16; TEMP 36.6; O2SAT 97
[2023-11-03] MEDS: Iron Sucrose Complex 200 MG in 0.9 % Sodium Chloride 100 ML 440 MG IV (09:00)
[2023-11-03] MEDS: 0.9 % Sodium Chloride Flush 10 ML SYRINGE 5 ML IVFLUSH (09:29)
[2023-11-09 08:33] VITALS: BP 140/86; PULSE 76; RESP 18; TEMP 36.6
[2023-11-09] MEDS: Iron Sucrose Complex 200 MG in 0.9 % Sodium Chloride 100 ML 440 MG IV (08:44)
[2023-11-09] MEDS: 0.9 % Sodium Chloride Flush 10 ML SYRINGE 5 ML IVFLUSH (09:04)
[2023-11-16 08:28] VITALS: BP 142/84; PULSE 88; RESP 20; TEMP 36.6; O2SAT 100
[2023-11-16] MEDS: Iron Sucrose Complex 200 MG in 0.9 % Sodium Chloride 100 ML 440 MG IV (08:52)
[2023-11-16] MEDS: 0.9 % Sodium Chloride Flush 10 ML SYRINGE 5 ML IVFLUSH (08:53)
--- NOTE | 2023-11-16 09:12 | HO.INF ---
phlebotomy at bedside
[2023-11-16 09:21] LABS: Hematocrit 31.9 % (37.0-47.0); Hemoglobin 10.6 g/dl (12.0-16.0); Mean Corpuscular HGB Conc 33.2 g/dl (31.0-35.0); Mean Corpuscular Hemoglobin 29.9 pg (27.0-33.0); Mean Corpuscular Volume 89.9 fL (80.0-98.0); NRBC Pct Auto 0.4 /100WBC (0.0-0.2); Platelet Count 188 X10*3/uL (160-400); Red Blood Count 3.55 X10*6/uL (4.20-5.50); Red Cell Distribution Width 16.4 % (11.0-16.0)
[2023-11-16 09:59] LABS: SLIDE REVIEW MANUAL DIFF
[2023-11-16 10:05] LABS: Atypical Lymph Absolute Manual 0.1 x10*3/uL; Atypical Lymphs Percent Manual 1 % (0-6); Band Neutrophils Percent 2 % (3-5); Basophils Abs Manual 0.4 X10*3/uL (0.0-0.2); Basophils Percent Manual 5 % (0-2); Eosinophils Absolute Manual 0.1 X10*3/uL (0.0-0.4); Eosinophils Percent Manual 1 % (0-4); Lymphocytes Absolute Manual 1.5 X10*3/uL (1.2-4.9); Lymphocytes Percent Manual 21 % (20-40); Metamyelocytes Absolute 0.1 X10*3/uL; Metamyelocytes Percent 2 %; Neutrophils Absolute Manual 4.9 X10*3/uL (2.0-8.3); Neutrophils Percent Manual 68 % (45-73)
[2023-11-16 10:07] LABS: Ovalocytes 1+ (5-14) /OIF; Platelet Estimate NORMAL (NORMAL); Platelet Morphology Comment NORMAL; RBC Morphology NOTED; Spherocytes 1+ (0-2) /OIF
[2023-11-16 10:11] LABS: Ferritin 401 ng/mL (10-250)
[2023-11-23 08:33] VITALS: BP 133/78; PULSE 80; RESP 16; TEMP 36.8; O2SAT 99
[2023-11-23] MEDS: 0.9 % Sodium Chloride Flush 10 ML SYRINGE 5 ML IVFLUSH (08:39)
[2023-11-23] MEDS: Iron Sucrose Complex 200 MG in 0.9 % Sodium Chloride 100 ML 440 MG IV (08:39)
[2023-11-23 09:00] VITALS: BMI 26.2
[2023-11-30 08:32] VITALS: BP 130/77; PULSE 78; RESP 20; TEMP 36.8; O2SAT 98
[2023-11-30] MEDS: Iron Sucrose Complex 200 MG in 0.9 % Sodium Chloride 100 ML 440 MG IV (08:43)
[2023-12-07 08:29] VITALS: BP 122/72; PULSE 78; RESP 16; TEMP 36.7; O2SAT 97
[2023-12-07] MEDS: 0.9 % Sodium Chloride Flush 10 ML SYRINGE 5 ML IVFLUSH (08:35)
[2023-12-07] MEDS: Iron Sucrose Complex 200 MG in 0.9 % Sodium Chloride 100 ML 440 MG IV (08:38)
[2023-12-14 08:29] VITALS: BP 140/84; PULSE 73; RESP 16; TEMP 36.9; O2SAT 99
[2023-12-14] MEDS: 0.9 % Sodium Chloride Flush 10 ML SYRINGE 5 ML IVFLUSH (08:35)
[2023-12-14] MEDS: Iron Sucrose Complex 200 MG in 0.9 % Sodium Chloride 100 ML 440 MG IV (08:38)
--- NOTE | 2023-12-14 09:14 | HO.INF ---
09:15am- lab in blood drawn.
[2023-12-14 09:24] LABS: MANUAL DIFF FLAG NO
[2023-12-14 09:28] LABS: Basophils Absolute Auto 0.2 X10*3/uL (0.0-0.2); Basophils Percent Auto 2.2 % (0-2); Eosinophils Absolute Auto 0.1 X10*3/uL (0.0-0.4); Eosinophils Percent Auto 1.6 % (0-4); Hematocrit 31.8 % (37.0-47.0); Hemoglobin 10.8 g/dl (12.0-16.0); Imm Gran Abs Auto 0.26 X10*3/uL (0.00-0.03); Imm Gran Pct Auto 2.9 % (0.0-0.4); Lymphocytes Absolute Auto 3.5 X10*3/uL (1.2-4.9); Lymphocytes Percent Auto 38.8 % (20-40); Mean Corpuscular Hemoglobin 30.3 pg (27.0-33.0); Mean Corpuscular Volume 89.3 fL (80.0-98.0); Mean Platelet Volume 11.1 fL (9.4-12.3); Monocytes Absolute Auto 0.5 X10*3/uL (0.1-1.2); Monocytes Percent Auto 5.6 % (2-11); NRBC Pct Auto 0.9 /100WBC (0.0-0.2); Neutrophils Absolute Auto 4.4 x10*3/uL (2.0-8.3); Neutrophils Percent Auto 48.9 % (45-73); Platelet Count 284 X10*3/uL (160-400); Red Blood Count 3.56 X10*6/uL (4.20-5.50); Red Cell Distribution Width 16.5 % (11.0-16.0); White Blood Count 8.9 X10*3/uL (4.8-10.8)
[2023-12-14 09:59] LABS: Ferritin 772 ng/mL (10-250)
== END 2023-12-14 10:25 | disposition home or self-care (01) ==
LOC: HO.INF 09:00
PROVIDERS: Visit Provider Internal Medicine Medical Oncology
DX: D50.9 Iron deficiency anemia, unspecified (principal)
CPT/HCPCS: 36415; 82728; 85007; 85025; 85027; 96365; 96374; J1756

== ENCOUNTER 2023-12-29 12:33 | Outpatient (REF) | payer OTHER, SELFPAY ==
--- NOTE | ~2023-12-29 | MM_ITS ---
EXAMINATION: MM DIAGNOSTIC DIGITAL BREAST TOMOSYNTHESIS, BILATERAL US BREAST LIMITED, RIGHT MAMMOGRAPHY: CLINICAL INFORMATION: 1.0 cm nodule seen 6:00 axis right breast on recent CT abdomen and pelvis 12/08/2023. Patient also due for bilateral screening. COMPARISON: Mammography: 02/17/2023, 02/14/2022, 02/12/2021, 02/10/2020, 12/06/2018 TECHNIQUE: Digital breast tomosynthesis is performed in both the craniocaudal and mediolateral oblique views along with computer-aided detection (CAD). Synthesized 2D images are generated from the tomosynthesis. FINDINGS: The breasts are heterogeneously dense, which may obscure small masses (ACR BI-RADS breast composition Category c). There are no suspicious masses, suspicious grouped calcifications, or areas of architectural distortion in either breast. The parenchymal pattern is stable from prior exams. No skin or axillary abnormalities. There is no definite correlate to the finding on the CT examination, which likely represented normal parenchymal density. ULTRASOUND: CLINICAL INFORMATION: Evaluate possible 1.0 cm nodule 6:00 axis right breast. COMPARISON: No prior ultrasound. CT abdomen and pelvis 12/08/2023. TECHNIQUE: Targeted sonographic evaluation was performed using a high frequency linear transducer. Attention was given to the right breast spanning the 4:00 to 8:00 axis. Selected archived documentation. FINDINGS: RIGHT BREAST: There is heterogeneously dense fibroglandular tissue. No suspicious mass is seen. There is no pathologic acoustic shadowing. There is no cystic abnormality. There is no parenchymal distortion identified. There is no ultrasonographic correlate to the abnormality seen on the CT exam. MM/MM tomosynthesis diagnostic BI IMPRESSION: No findings suspicious for malignancy in either breast. Right breast shows no sonographic or mammographic abnormality in the region of the questionable nodule seen on recent CT exam 6:00 axis right breast. This likely represented normal fibroglandular tissue. Recommend the patient return to routine annual screening. OVERALL ASSESSMENT: Mammography: BI-RADS 1 - Negative Ultrasound: BI-RADS 1 - Negative RECOMMENDATION: 1 year F/U This patient's information was entered into a reminder system with a target due date for their next mammogram.
== END 2023-12-29 12:34 | disposition home or self-care (01) ==
LOC: HO.MAMMO 12:33
PROVIDERS: PCP Internal Medicine; Visit Provider Internal Medicine
DX: N63.15 Unspecified lump in the right breast, overlapping quadrants (principal)
CPT/HCPCS: 76642; 77062; 77066

== ENCOUNTER → 2023-12-29 14:00 | Outpatient (BNV) | payer OTHER, SELFPAY | PROVIDERS: PCP Internal Medicine; Visit Provider Radiology Diagnostic Radiology | DX: N63.15 Unspecified lump in the right breast, overlapping quadrants (principal) | CPT/HCPCS: 76642; 77062; 77066 ==

== ENCOUNTER 2024-01-22 10:17 | Outpatient (AMB) | payer OTHER, SELFPAY ==
--- NOTE | 2024-01-22 10:21 | A.OFFVIS_ITS ---
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 Intake Note: No questions or concerns Allergies ondansetron Allergy (Intermediate, Verified 12/08/23 10:06) abdominal pain Penicillins [PCN] Allergy (Intermediate, Verified 12/08/23 10:06) Rash ibuprofen [From Motrin] Adverse Reaction (Verified 12/08/23 10:06) Heartburn Medication List - Last Reconciled 01/22/24 by Shani Lopez CNM amitriptyline 50 mg PO BEDTIME anagrelide 0.5 mg (1/2 x 1 mg) PO Q12H anagrelide 0.5 mg PO Q12H betamethasone dipropionate 0.05% 1 appl topical DAILY [id number]-whondumdbbgju-jyec 50-325-40 mg 1 tab PO DAILY PRN cholecalciferol (vitamin D3) 50 mcg PO DAILY clonazepam 0.5 mg PO BEDTIME cyanocobalamin (vitamin B-12) (Vitamin B-12) 1,000 mcg PO DAILY ferrous sulfate 325 mg PO DAILY fluticasone propionate 50 mcg/actuation (Flonase Allergy Relief) 1 spray intranasal DAILY 30 days folic acid 1 mg PO DAILY furosemide 20 mg PO DAILY 90 days loratadine (Allergy Relief (loratadine)) 10 mg PO DAILY 90 days minoxidil 2.5 mg PO DAILY mometasone 0.1% 3 ea topical Q OTHER DAY PRN naproxen 500 mg PO BID PRN 30 days omeprazole 20 mg PO DAILY 90 days promethazine 12.5 mg PO DAILY PRN propranolol ER (Inderal LA) 60 mg PO BID ruxolitinib (Jakafi) 5 mg PO BID topiramate 100 mg PO BID Is last menstrual period known: Yes Last menstrual period: 10/20/23 Post menopausal: No Patient : No HPI HPI 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 She has never been sexually active she has no concern a mild abnormal discharge or any symptoms worries about STDs. She has occasionally missed a and has a occasion up to 3 but she has not had a period since. She has been her soon various testing and treatments for her issues with anemia and platelets and she said infusions and she now has a new diagnosis (that this provider can not remember the name of) that was made after a 2nd opinion bone marrow biopsy done at [facility] in [place] she is going to be following up with them and getting various transfusions and at some point she is going to be getting some sort of treatment that is going to require hospitalization for a month she is going to on a bone marrow transplant list as well. She is going to need help with her mother and will be severely immune compromised. She is not able to work. She has an appointment with Dr. Ahn tomorrow. [facility] Medical History HTN (hypertension) Essential thrombocytosis Iron deficiency anemia GERD (gastroesophageal reflux disease) C. difficile colitis Abdominal pain Diarrhea Anxiety Leg edema Hypovitaminosis D Constipation by delayed colonic transit Hyperviscosity syndrome Migraines Inappropriate sinus tachycardia Surgical History History of umbilical hernia repair (07/20/22) Hx of esophagogastroduodenoscopy Hx of colonoscopy History of bone marrow biopsy History of tonsillectomy and adenoidectomy Family History Father Alcoholism Liver failure Mother Hypertension Maternal Grandmother No problems noted. Maternal Grandfather Stroke Paternal Grandmother Breast cancer Maternal Aunt Fibroids Paternal Grandmother No problems noted. Social History Household Members: Family Household Members Other:: Mom Housing: Apartment Are you a primary healthcare social worker to a significant other at home: No Do you presently have visiting nurse or other home services: No Alcohol intake: never Patient Tobacco Use Status: Never used Tobacco e-Cigarette/Vaping Use: Never Used Second Hand Smoke Exposure: No Advance Directives Date on File: 10/22/15 service: No Current occupational status: unemployed Cognitive needs: No Hearing needs: No Vision needs: Yes Female Reproductive History Menstrual Date of last menstrual period: 10/20/23 Physical Exam Vital Signs: Last Vital Signs BP 102/64 01/22/24 10:23 BMI result Body Mass Index 25.9 Const Other: Patient does appear pale. has some bruises General: healthy appearing, comfortable, no acute distress, well developed and alert Nutritional Appearance: average body habitus Orientation/consciousness: patient oriented x3 Limitations: no limitations HEENT Head: Yes normocephalic Neck Neck: Yes normal visual inspection Chest Chest palpation & inspection: normal inspection of the chest Breast/axilla inspection: normal inspection of the breasts and normal inspection of the axillae Breast/axilla palpation: normal palpation of the breasts and normal palpation of the axillae Resp Effort & Inspection: normal respiratory effort GI Inspection: Yes normal to inspection, No Abdominal wall edema and No distended Palpation (GI): Soft to palpation and nontender Other: External exam is within vagina pink and moist cervix nulliparous pink healthy with healthy appearing mucus. Cervix is very posterior and pelvis uterus is small midposition difficult palpate but not enlarged adnexa not enlarged very good muscle tone. General: Yes bladder normal to palpation External Female Exam: normal external appearance and normal appearance of the urethra Speculum Exam - Vagina: normal appearance of the vagina, normal palpation and normal vaginal discharge Speculum Exam - Cervix: normal appearance of the cervix, normal palpation and nontender Bimanual exam- vagina & uterus: normal bimanual exam, normal palpation, uterine size normal, bladder normal to palpation, consistency normal, normal palpation, uterine mobility normal, uterine shape normal, No Cervical tenderness present, non-tender and no cervical motion tenderness Bimanual Exam- Adnexa, other: normal adnexae, no masses, normal and No adnexal tenderness Neuro General: patient oriented x3 Results Reviewed Results Reviewed: e: Lilibeth Stringer Age/Sex: 42/F Attending: Shani Lopez CNM : 1980 Submitted by: Shani Lopez CNM Copies to: Mary Garcia MD MR #: [id number] Status: REG BNVA Collected: 12/20/22 Location: Received: 12/22/22 Interpretation Satisfactory for evaluation. Negative for intraepithelial lesion or malignancy. HPV mRNA E6/E7: NOT DETECTED This assay detects E6/E7 viral messenger RNA (mRNA) from 14 high-risk HPV types (16, 18, 31, 33, 35, 39, 45, 51, 52, 56, 58, 59, 66, 68) HPV testing performed by [facility], [place], [place]. See reference laboratory portion of the EMR for entire report. Clinical Information LMP: 12/03/2022 Previous PAP test: 5 yrs ago, Unknown findings Material Received ThinPrep-Cervical Copies To Shani Lopez CNM [address] [place] [address] [address]. [address] [place] [address] Mary Garcia [address] [place] [address] Electronically Signed By: CORBY Espinoza (ASCP) 01/06/23 1405 The Pap Test is a screening procedure with the inherent possibility of both false negative and false positive results. Results should be interpreted in the context of historic and current clinical findings. Reliability of the Pap Test is enhanced by performing the test on a regular repetitive basis. Patient: Lilibeht Stringer Age/Sex: 42/F MR#: [id number] Page 1 of 1 Assessment & Plan Assessment & Plan (1) Cervical cancer screening: Comment: 12/20/2022 Pap is negative with negative HPV Code(s): Z12.4 - Encounter for screening for malignant neoplasm of cervix Category: Medical (2) Well woman exam with routine gynecological exam: Code(s): Z01.419 - Encounter for gynecological examination (general) (routine) without abnormal findings Category: Medical (3) Iron deficiency anemia: Code(s): D50.9 - Iron deficiency anemia, unspecified Category: Medical (4) Essential thrombocytosis: Code(s): D47.3 - Essential (hemorrhagic) thrombocythemia Category: Medical (5) Normochromic anemia: Code(s): D64.9 - Anemia, unspecified Category: Medical (6) Amenorrhea, secondary: Code(s): N91.1 - Secondary amenorrhea Category: Medical Plan -----Discussed in this visit the following: healthy balanced diet, regular and consistent exercise, getting recommended health screens, doing the best she can for her particular health concerns, kegel exercises, pap smear screening and followup recommendations, mammography screening and SBE, normal changes in cycles in her life stage--- . She is up-to-date on her mammograms she does not need control control sake. She has not sexually active so did not need any testing for STIs and has a no abnormal discharge. However her 3 month period of amenorrhea may put her at increased risk of having a very heavy unscheduled menses going forward that could compromise her further. I discussed with her possibility of taking a 10 day course of Provera to induce menses after stopping the Provera so that the period Could be schedule than anticipated and prevent further buildup of the lining uterus going forward. She is willing to take this she has an appointment with Dr. Ahn tomorrow and I recommend that she have a conversation with her given all of her many different infusions and procedures coming up as to what Dr. Ahn's opinion would be about timing when she should take the Provera. Also discussed long- term methods that can be used to manage irregular menses that she may or may not and that might be more challenging for instance IUDs with progestin. Discussed also with the challenges dealing with all these medical issues and what things help boost her spirits as she goes through this journey.. She is up-to-date on her mammograms. Her next Pap smear would not be for for more years. Medications: New medroxyprogesterone (Provera) 10 mg PO DAILY 10 tabs 0RF Coding Level of Care Code Est Pt Prev Care 40-64y(36581) Diagnoses Cervical cancer screening Z12.4 Well woman exam with routine gynecological exam Z01.419 Iron deficiency anemia D50.9 Essential thrombocytosis D47.3 Normochromic anemia D64.9 Amenorrhea, secondary N91.1
[2024-01-22 10:23] VITALS: BP 102/64; BMI 25.9
== END 2024-01-22 11:11 | disposition home or self-care (01) ==
LOC: HO.HWSM 10:17
PROVIDERS: PCP Internal Medicine; Visit Provider Advanced Practice Midwife
DX: Z12.4 Encounter for screening for malignant neoplasm of cervix (principal); Z01.419 Encounter for gynecological examination (general) (routine) without abnormal findings; D50.9 Iron deficiency anemia, unspecified; D47.3 Essential (hemorrhagic) thrombocythemia; D64.9 Anemia, unspecified; N91.1 Secondary amenorrhea
CPT/HCPCS: 99396

== ENCOUNTER → 2024-01-22 10:17 | Outpatient (BNVA) | payer OTHER, SELFPAY | PROVIDERS: PCP Internal Medicine; Visit Provider Advanced Practice Midwife | DX: Z01.411 Encounter for gynecological examination (general) (routine) with abnormal findings (principal); N91.1 Secondary amenorrhea; D50.9 Iron deficiency anemia, unspecified; D47.3 Essential (hemorrhagic) thrombocythemia | CPT/HCPCS: 99396 ==

== ENCOUNTER 2024-01-25 10:30 | Outpatient (AMB) | payer OTHER, SELFPAY ==
[2024-01-25 10:31] VITALS: BP 112/74; PULSE 72; O2SAT 100; BMI 25.6
--- NOTE | 2024-01-25 10:31 | MHC.PC.OV ---
Vital Signs 01/25/24 10:31 Height 5 ft 3 in Weight 144 lb 8 oz BMI 25.6 BP 112/74 Blood Pressure Location Lt brachial Position Sitting Pulse 72 Pulse Source Pulse Oximeter Pulse Oximetry (%) 100 Oxygen Delivery Method Room Air Intake Visit Reasons: thrombocytosis Planning Aide Required: No Accompanied by: Self / Same As Patient Allergies ondansetron Allergy (Intermediate, Verified 01/25/24 10:50) abdominal pain Penicillins [PCN] Allergy (Intermediate, Verified 01/25/24 10:50) Rash ibuprofen [From Motrin] Adverse Reaction (Verified 01/25/24 10:50) Heartburn Medication List - Last Reconciled 01/25/24 by Mary Mcghee MD amitriptyline 50 mg PO BEDTIME anagrelide 0.5 mg (1/2 x 1 mg) PO Q12H anagrelide 0.5 mg PO Q12H betamethasone dipropionate 0.05% 1 appl topical DAILY yqdceoqbvi-ffauzdvmsuboo-gdwu 50-325-40 mg 1 tab PO DAILY PRN cholecalciferol (vitamin D3) 50 mcg PO DAILY clonazepam 0.5 mg PO BEDTIME cyanocobalamin (vitamin B-12) (Vitamin B-12) 1,000 mcg PO DAILY ferrous sulfate 325 mg PO DAILY fluticasone propionate 50 mcg/actuation (Flonase Allergy Relief) 1 spray intranasal DAILY 30 days folic acid 1 mg PO DAILY furosemide 20 mg PO DAILY 90 days loratadine (Allergy Relief (loratadine)) 10 mg PO DAILY 90 days medroxyprogesterone (Provera) 10 mg PO DAILY minoxidil 2.5 mg PO DAILY mometasone 0.1% 3 ea topical Q OTHER DAY PRN naproxen 500 mg PO BID PRN 30 days omeprazole 20 mg PO DAILY 90 days promethazine 12.5 mg PO DAILY PRN propranolol ER (Inderal LA) 60 mg PO BID ruxolitinib (Jakafi) 5 mg PO BID topiramate 100 mg PO BID Tobacco use date assessed: 07/27/23 Dental Screening Dental Screen Date: 07/27/23 HPI HPI Comments History of Present Illness Details This is a 43-year-old female with essential thrombocytosis, anemia and GERD that comes today complaining of right toenail pain and redness that started few weeks ago. Looks like an ingrown toenail and I will send her antibiotics and refer her to Podiatry. Her essential thrombocytosis has been stable and this is follow by Hematology-Oncology. Her hemoglobin has decreased and she denies any active bleeding. Compliant with ferrous sulfate. GERD stable with PPIs. Denies any chest pain or shortness on breath. [facility] Medical History (Updated 01/25/24 @ 10:57 by Mary Mcghee MD) HTN (hypertension) Essential thrombocytosis Iron deficiency anemia GERD (gastroesophageal reflux disease) C. difficile colitis Abdominal pain Diarrhea Anxiety Leg edema Hypovitaminosis D Constipation by delayed colonic transit Hyperviscosity syndrome Migraines Inappropriate sinus tachycardia Surgical History History of umbilical hernia repair (07/20/22) Hx of esophagogastroduodenoscopy Hx of colonoscopy History of bone marrow biopsy History of tonsillectomy and adenoidectomy Family History Father Alcoholism Liver failure Mother Hypertension Maternal Grandmother No problems noted. Maternal Grandfather Stroke Paternal Grandmother Breast cancer Maternal Aunt Fibroids Paternal Grandmother No problems noted. Social History Household Members: Family Household Members Other:: Mom Housing: Apartment Are you a primary hospice home care coordinator to a significant other at home: No Do you presently have visiting nurse or other home services: No Alcohol intake: never Patient Tobacco Use Status: Never used Tobacco e-Cigarette/Vaping Use: Never Used Second Hand Smoke Exposure: No Advance Directives Date on File: 10/22/15 service: No Current occupational status: unemployed Cognitive needs: No Hearing needs: No Vision needs: Yes Questionnaire Thrive Questionnaire Date Thrive assessed: 07/27/23 MILLY-7 AMB Questionnaire MILLY-7 Date MILLY - 7 assessed: 07/27/23 Source: Developed by Drs. Sorin Rodrigues, Ruth Duncan, Lucien Whaley and colleagues, with an educational fabio from [employer]. Review of Systems Const All systems reviewed & are unremarkable except as noted in HPI and below Card Denies chest pain at rest, Denies chest pain with activity, Denies edema, Denies irregular heart rhythm, Denies claudication, Denies dyspnea, Denies dyspnea on exertion, Denies orthopnea, Denies paroxysmal nocturnal dyspnea and Denies slow heart rate Resp Denies cough, Denies dyspnea and Denies dyspnea on exertion Physical exam (Primary Care) Vital Signs: Last Vital Signs Pulse 72 01/25/24 10:31 BP 112/74 01/25/24 10:31 Pulse Ox 100 01/25/24 10:31 Oxygen Delivery Method Room Air 01/25/24 10:31 BMI result Body Mass Index 25.6 Tobacco/Smoking Status: Tobacco use Status Tobacco use date assessed 07/27/23 01/25/24 10:36 Patient Tobacco Use Status Never used Tobacco 01/25/24 10:36 e-Cigarette/Vaping Use Never Used 01/25/24 10:36 Thrive Assessment: Date of Thrive Assessment Date Thrive assessed 07/27/23 01/25/24 10:36 Resp Effort & Inspection: normal respiratory effort Auscultation: clear to auscultation bilaterally Cardio Jugular venous distension: no JVD Rate: regular rate Rhythm: regular rhythm Heart sounds: S1 normal heart sound present and S2 normal heart sound present Skin Nails: other (right ingrown first toenail) Extrem General: Yes full ROM Right lower extremity: foot Assessment and Plan Assessment & Plan (1) Ingrown toenail: Code(s): L60.0 - Ingrowing nail Plan: Start antibiotics. Referred to Podiatry. (2) Essential thrombocytosis: Code(s): D47.3 - Essential (hemorrhagic) thrombocythemia Plan: Continue anagrelide. Follow-up with Hematology-Oncology. (3) Normochromic anemia: Code(s): D64.9 - Anemia, unspecified Plan: Continue ferrous sulfate. (4) GERD (gastroesophageal reflux disease): Code(s): K21.9 - Gastro-esophageal reflux disease without esophagitis Plan: Continue PPIs. Orders: Referrals Podiatry Referral L60.0 - Ingrowing nail Medications: New doxycycline hyclate 100 mg PO BID 14 tabs 0RF 7 days Coding Level of Care Code Est Pt Level 4 (24426) Complex EM visit Add On G2211 Diagnoses Ingrown toenail L60.0 Essential thrombocytosis D47.3 Normochromic anemia D64.9 GERD (gastroesophageal reflux disease) K21.9 Time Spent (min) 22
== END 2024-01-25 11:01 | disposition home or self-care (01) ==
PROVIDERS: PCP Internal Medicine; Visit Provider Internal Medicine
DX: D47.3 Essential (hemorrhagic) thrombocythemia (principal); L60.0 Ingrowing nail; D64.9 Anemia, unspecified; K21.9 Gastro-esophageal reflux disease without esophagitis
CPT/HCPCS: 99214; G2211

== ENCOUNTER 2024-06-18 22:01 | Emergency (ER) | payer OTHER, SELFPAY ==
[2024-06-18 22:10] VITALS: BP 146/90; BP 181/98; PULSE 104; PULSE 111; RESP 20; TEMP 36.8; O2SAT 100; O2SAT 97; BMI 25.9
[2024-06-18 22:11] VITALS: BP 181/98; PULSE 107; RESP 18; TEMP 36.8; O2SAT 100
--- NOTE | 2024-06-18 22:56 | ED.GENADULT ---
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 complaining of dizziness whole body pain anxious decreased appetite was seen at [facility] yesterday and received IV fluids magnesium potassium labs were done comes here arousable to eat for several days feel weak and dizzy was very anxious prior to arrival now feeling much better Related Data Home Medications ?Medication ?Instructions ?Recorded ?Confirmed amitriptyline 50 mg tablet 50 mg PO BEDTIME 06/01/20 04/25/24 cholecalciferol (vitamin D3) 50 50 mcg PO DAILY 06/01/20 04/25/24 mcg (2,000 unit) capsule clonazepam 0.5 mg tablet 0.5 mg PO BEDTIME 06/01/20 04/25/24 ferrous sulfate 325 mg (65 mg 325 mg PO DAILY 06/01/20 04/25/24 iron) tablet mometasone 0.1 % topical ointment 3 ea topical Q OTHER DAY PRN Rash 06/01/20 04/25/24 kfqeagzbmc-cbmaqmnsvxezm-qppxoejt 1 tab PO DAILY PRN Migraine 08/05/21 04/25/24 50 mg-325 mg-40 mg tablet Headache promethazine 12.5 mg tablet 12.5 mg PO DAILY PRN Nausea 08/05/21 04/25/24 propranolol 60 mg capsule,24 60 mg PO BID 08/05/21 04/25/24 hr,extended release (Inderal LA) minoxidil 2.5 mg tablet 2.5 mg PO DAILY 02/03/22 04/25/24 betamethasone dipropionate 0.05 % 1 appl topical DAILY 06/14/22 04/25/24 lotion topiramate 100 mg tablet 100 mg PO BID 06/14/22 04/25/24 ruxolitinib 5 mg tablet (Jakafi) 5 mg PO BID 12/08/23 04/25/24 Previous Rx's ?Medication ?Instructions ?Recorded fluticasone propionate 50 1 spray intranasal DAILY 30 days 02/18/22 mcg/actuation nasal #16 grams spray,suspension (Flonase Allergy Relief) anagrelide 1 mg capsule 0.5 mg (1/2 x 1 mg) PO Q12H 07/28/23 cyanocobalamin (vitamin B-12) 1,000 mcg PO DAILY #90 tabs 09/27/23 1,000 mcg tablet (Vitamin B-12) anagrelide 0.5 mg capsule 0.5 mg PO Q12H #60 caps 11/24/23 folic acid 1 mg tablet 1 mg PO DAILY #90 tabs 12/25/23 medroxyprogesterone 10 mg tablet 10 mg PO DAILY #10 tabs 01/22/24 (Provera) naproxen 500 mg tablet 500 mg PO BID PRN pain 30 days #60 02/12/24 tabs loratadine 10 mg tablet (Allergy 10 mg PO DAILY 90 days #90 tabs 02/28/24 Relief (loratadine)) furosemide 20 mg tablet 20 mg PO DAILY 90 days #90 tabs 04/04/24 omeprazole 20 mg capsule,delayed 20 mg PO DAILY 90 days #90 caps 04/22/24 release Allergies Allergy/AdvReac Type Severity Reaction Status Date / Time ondansetron Allergy Intermediate abdominal Verified 06/18/24 22:14 pain Penicillins [PCN] Allergy Intermediate Rash Verified 06/18/24 22:14 ibuprofen [From Motrin] AdvReac Heartburn Verified 06/18/24 22:14 Review of Systems Review of Systems: Yes all other systems are reviewed and are negative [facility] Past Medical History Medical History HTN (hypertension) Essential thrombocytosis Iron deficiency anemia GERD (gastroesophageal reflux disease) C. difficile colitis Abdominal pain Diarrhea Anxiety Leg edema Hypovitaminosis D Constipation by delayed colonic transit Hyperviscosity syndrome Migraines Inappropriate sinus tachycardia Surgical History History of umbilical hernia repair (07/20/22) Hx of esophagogastroduodenoscopy Hx of colonoscopy History of bone marrow biopsy History of tonsillectomy and adenoidectomy Family History Family History Father Alcoholism Liver failure Mother Hypertension Maternal Grandmother No problems noted. Maternal Grandfather Stroke Paternal Grandmother Breast cancer Maternal Aunt Fibroids Paternal Grandmother No problems noted. Social History Social History Household Members: Family Household Members Other:: Mom Housing: Apartment Are you a primary healthcare consultant to a significant other at home: No Do you presently have visiting nurse or other home services: No Alcohol intake: never Patient Tobacco Use Status: Never used Tobacco e-Cigarette/Vaping Use: Never Used Second Hand Smoke Exposure: No Use of substances other than those prescribed or required for medical reasons: No Advance Directives: Yes Advance Directives Information Provided: No Advance Directives on File: No Advance Directives Date on File: 10/22/15 service: No Current occupational status: unemployed Cognitive needs: No Hearing needs: No Vision needs: Yes Physical Exam ED Vital Signs: Vital Signs - 24 hr 06/18/24 22:10 06/18/24 22:11 06/19/24 00:22 Temperature 98.2 F 98.2 F 98.7 F Pulse Rate 104 H 107 H 99 Respiratory Rate 20 18 18 Blood Pressure 181/98 H 181/98 H 153/87 H Pulse Oximetry 97 100 100 Oxygen Delivery Method Room Air Room Air Room Air 06/19/24 02:36 06/19/24 02:36 06/19/24 02:37 Temperature Pulse Rate 92 93 102 H Respiratory Rate Blood Pressure 149/85 H 166/96 H 156/87 H Pulse Oximetry Oxygen Delivery Method BMI result Body Mass Index 25.9 Appearance: Alert. Oriented X3. No acute distress. Eyes: Pallor+ ENT: Pharynx normal. Oral Mucosa dry Neck: Normal inspection. Neck supple. CVS: Normal heart rate and rhythm. Pulses normal. Respiratory: No respiratory distress. Equal air entry bilateral, no wheezing/rales/rhonchi Abdomen: Soft and nontender. Bowel sounds are present, no mass palpable, no CVA tenderness Skin: Skin warm and dry. Normal skin color. Normal skin turgor. Extremities: No lower extremity edema. No calf tenderness Neuro: Oriented X 3. No motor deficit. No sensory deficit.No cerebellar signs , cranial nerves II-XII intact Medications Administered Discontinued Medications Generic Name Dose Route Start Last Admin Trade Name Freq PRN Reason Stop Dose Admin Sodium Chloride 1,000 mls @ 999 mls/hr 06/18/24 22:55 06/18/24 23:29 Ns IV 06/18/24 23:55 999 mls/hr .Q1H1M ONE Administration Lorazepam 1 mg 06/18/24 23:57 06/19/24 00:07 Lorazepam 2 Mg/Ml Vial IVPUSH 06/18/24 23:58 1 mg STAT STA Administration Ondansetron HCl 4 mg 06/18/24 22:55 06/18/24 23:29 Ondansetron Hcl 4 Mg/2 Ml Vial IVPUSH 06/18/24 22:56 4 mg ONCE ONE Administration Medical Decision Making Medical Decision Making [facility] Narrative: Patient has myelofibrosis status post bone marrow transplant diffuse abdominal pain labs are stable received IV patient advised to 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 06/18/24 23:35 06/18/24 23:35 Labs: Lab Results 06/18/24 Range/Units 23:35 WBC 13.1 H (4.8-10.8) X10*3/uL RBC 3.30 L (4.20-5.50) X10*6/uL Hgb 10.1 L (12.0-16.0) g/dl Hct 28.1 L (37.0-47.0) % MCV 85.2 (80.0-98.0) fL MCH 30.6 (27.0-33.0) pg MCHC 35.9 H (31.0-35.0) g/dl RDW 18.9 H (11.0-16.0) % Plt Count 156 L (160-400) X10*3/uL MPV 9.2 L (9.4-12.3) fL Immature Gran % (Auto) 1.5 H (0.0-0.4) % Neut % (Auto) 82.2 H (45-73) % Lymph % (Auto) 4.3 L (20-40) % Cooper % (Auto) 11.8 H (2-11) % Eos % (Auto) 0.1 (0-4) % Baso % (Auto) 0.1 (0-2) % Lymph # (Auto) 0.6 L (1.2-4.9) X10*3/uL Cooper # (Auto) 1.5 H (0.1-1.2) X10*3/uL Eos # (Auto) 0.0 (0.0-0.4) X10*3/uL Baso # (Auto) 0.0 (0.0-0.2) X10*3/uL Abs Immat Gran (auto) 0.20 H (0.00-0.03) X10*3/uL Absolute Neuts (auto) 10.8 H (2.0-8.3) x10*3/uL Absolute Nucleated RBC 0.000 (0.0-0.012) X10*3/uL Nucleated RBC % (auto) 0.0 (0.0-0.2) /100WBC Smear Tech's Comments VERIFIED Sodium 134 L (135-145) mmol/L Potassium 3.7 (3.3-5.1) mmol/L Chloride 107 (96-108) mmol/L Carbon Dioxide 17 L (22-29) mmol/L Anion Gap 14 (12-20) BUN 15 (9-16) mg/dL Creatinine 1.12 (0.5-1.4) mg/dL Estim Creat Clear Calc 53.6 Estimated GFR 53 Random Glucose 122 H (60-115) mg/dL Calcium 9.5 D (8.4-10.2) mg/dL Magnesium 2.0 (1.6-2.6) mg/dL Total Bilirubin 0.5 (0.0-1.0) mg/dL AST 26 (5-31) U/L ALT 15 (0-31) U/L Alkaline Phosphatase 44 (39-117) U/L Total Protein 6.7 (6.5-8.0) g/dL Albumin 4.5 (3.5-5.0) g/dL Discharge Plan Discharge Clinical Impression: Anxiety, Body aches Patient Disposition: Home, Self-Care Instructions: Musculoskeletal Pain (ED), Anxiety (ED) Additional Instructions: Continue take your medication as prescribed by your PCP and oncologist Drink plenty of fluids Prescriptions: No Action fluticasone propionate [Flonase Allergy Relief] 50 mcg/actuation spray,suspension 1 spray intranasal DAILY 30 Days Qty: 16 3RF Rx Instructions: administer into each nostril anagrelide 1 mg capsule 0.5 mg PO Q12H 8RF naproxen 500 mg tablet 500 mg PO BID PRN (Reason: pain) 30 Days Qty: 60 2RF loratadine [Allergy Relief (loratadine)] 10 mg tablet 10 mg PO DAILY 90 Days Qty: 90 2RF furosemide 20 mg tablet 20 mg PO DAILY 90 Days Qty: 90 1RF omeprazole 20 mg capsule,delayed release(DR/EC) 20 mg PO DAILY 90 Days Qty: 90 0RF promethazine 12.5 mg Tablet 12.5 mg PO DAILY PRN (Reason: Nausea) wkqhzwhutu-stwolscfnjbvg-qpet 50-325-40 mg tablet 1 tab PO DAILY PRN (Reason: Migraine Headache) propranolol [Inderal LA] 60 mg capsule,extended release 24 hr 60 mg PO BID minoxidil 2.5 mg Tablet 2.5 mg PO DAILY Rx Instructions: 1/2 tab daily cyanocobalamin (vitamin B-12) [Vitamin B-12] 1,000 mcg tablet 1,000 mcg PO DAILY Qty: 90 6RF anagrelide 0.5 mg Capsule 0.5 mg PO Q12H Qty: 60 3RF Jakafi 5 mg Tablet 5 mg PO BID folic acid 1 mg Tablet 1 mg PO DAILY Qty: 90 6RF cholecalciferol (vitamin D3) 50 mcg (2,000 unit) capsule 50 mcg PO DAILY ferrous sulfate 325 mg (65 mg iron) tablet 325 mg PO DAILY amitriptyline 50 mg tablet 50 mg PO BEDTIME clonazepam 0.5 mg tablet 0.5 mg PO BEDTIME mometasone 0.1 % ointment 3 ea topical Q OTHER DAY PRN (Reason: Rash) topiramate 100 mg tablet 100 mg PO BID betamethasone dipropionate 0.05 % lotion 1 appl topical DAILY medroxyprogesterone [Provera] 10 mg tablet 10 mg PO DAILY Qty: 10 0RF Print Language: Spanish
[2024-06-18] MEDS: ondansetron HCL 4 MG/2 ML VIAL IVPUSH (23:29)
[2024-06-18] MEDS: 0.9 % Sodium Chloride 1,000 ML 999 ML IV (23:29)
--- NOTE | 2024-06-18 23:34 | PC.NURSE ---
Took over care from KEATON Rahman, medicated per sep. Assist pt to bed side commode. Pt placed back in bed and resting.
[2024-06-18 23:41] LABS: Basophils Percent Auto 0.1 % (0-2); Eosinophils Percent Auto 0.1 % (0-4); Hematocrit 28.1 % (37.0-47.0); Hemoglobin 10.1 g/dl (12.0-16.0); Imm Gran Pct Auto 1.5 % (0.0-0.4); Lymphocytes Absolute Auto 0.6 X10*3/uL (1.2-4.9); Lymphocytes Percent Auto 4.3 % (20-40); MANUAL DIFF FLAG SCAN; Mean Corpuscular HGB Conc 35.9 g/dl (31.0-35.0); Mean Corpuscular Hemoglobin 30.6 pg (27.0-33.0); Mean Corpuscular Volume 85.2 fL (80.0-98.0); Mean Platelet Volume 9.2 fL (9.4-12.3); Monocytes Absolute Auto 1.5 X10*3/uL (0.1-1.2); Monocytes Percent Auto 11.8 % (2-11); Neutrophils Absolute Auto 10.8 x10*3/uL (2.0-8.3); Neutrophils Percent Auto 82.2 % (45-73); Platelet Count 156 X10*3/uL (160-400); Red Cell Distribution Width 18.9 % (11.0-16.0); SCAN SMEAR FLAG 1; White Blood Count 13.1 X10*3/uL (4.8-10.8)
[2024-06-18 23:54] LABS: Alanine Aminotransferase 15 U/L (0-31); Albumin Level 4.5 g/dL (3.5-5.0); Alkaline Phosphatase 44 U/L (39-117); Anion Gap 14 (12-20); Aspartate Amino Transferase 26 U/L (5-31); Bilirubin Total 0.5 mg/dL (0.0-1.0); Blood Urea Nitrogen 15 mg/dL (9-16); Calcium 9.5 mg/dL (8.4-10.2); Carbon Dioxide 17 mmol/L (22-29); Chloride 107 mmol/L (96-108); Creatinine Clr Calc Pharmacy 53.6; Estimated Glomerular Filt Rate 53; Glucose Random 122 mg/dL (60-115); Potassium 3.7 mmol/L (3.3-5.1); Sodium 134 mmol/L (135-145); Total Protein 6.7 g/dL (6.5-8.0)
[2024-06-18 23:58] LABS: SLIDE REVIEW VERIFIED
[2024-06-19] MEDS: LORazepam 2 MG/ML VIAL 1 MG IVPUSH (00:07)
--- NOTE | 2024-06-19 00:13 | PC.NURSE ---
pt medicated per mar.
[2024-06-19 00:22] VITALS: BP 153/87; PULSE 99; RESP 18; TEMP 37.1; O2SAT 100
--- NOTE | 2024-06-19 02:32 | PC.NURSE ---
pt assisted to bedside commode,
[2024-06-19 02:36] VITALS: BP 149/85; BP 166/96; PULSE 92; PULSE 93
[2024-06-19 02:37] VITALS: BP 156/87; PULSE 102
[2024-06-19 04:06] VITALS: BP 154/91; PULSE 94; RESP 16; TEMP 36.8; O2SAT 97
[2024-06-19 04:08] VITALS: BP 138/82; PULSE 94; RESP 16; TEMP 36.8; O2SAT 98
--- OUTSIDE RECORDS SUMMARY | 2024-06-25 16:03 | XMS_ITS ---
Author Organization [facility] Address [address] [place] [address] Care Team Providers Care Customer Development Representative Name Role Phone Mary Garcia Primary Care Provider Unavailab Sy Gregorio Jr Unavailable [phone] Irineo Ahn Unavailable Unavailable REASON FOR VISIT gerd, ibs Encounters Encounter Location Date Provider Diagnosis [facility] [address] [place] [address] 04/25/2024 Sy Lam Jr PLAN OF TREATMENT Next Appt Details Provider Name:Sy catherine Jr, 04/30/2025 10:00:00 AM, [address], [address], [place], [address],
--- OUTSIDE RECORDS SUMMARY | 2024-06-25 16:04 | XMS_ITS | Patient Health Record ---
Author Organization [facility] Address [address] [place] [address] Care Team Providers Care Power Machine Operator Name Role Phone Mary Garcia Primary Care Provider Unavailab Sy Gregorio Jr Unavailable Kay Ahnfarrah Unavailable Unavailable ALLERGIES Allergen (clinical drug ingredient) Drug/Non Drug Allergy documented on EMR Reaction Allergy Type Onset Date Status Penicillin Unknown Drug Allergy Active RESULTS Component Value Reference Range Notes Ur Preg Test Reviewed date:08/11/2023 02:00:08 PM Interpretation: Performing Lab:[facility], [address] [place] [phone] Notes/Report: Urine NEGATIVE NEGATIVE This test was developed to detect early . False negative results may occur after the 5th - 7th week of when using this test method. If clinically indicated, consider a serum hCG. Pathology Reviewed date:08/24/2023 11:07:14 AM Interpretation: Performing Lab:[facility], [address] [place] [phone] Notes/Report: REASON FOR REFERRAL No Information MEDICATIONS Medication SIG (Take, Route, Frequency, Duration) Notes Start Date End Date Status Anagrelide HCl 0.5 MG 1 capsule Orally T wice a day Active Vitamin D3 50 MCG (1999 UT) 1 capsule Or ally Once a day for 30 day(s) Active Amitriptyline HCl 50 MG 1 tablet Orally Once a day Active clonazePAM 0.5 MG 1 tablet Orally QHS Active Propranolol HCl 60 MG 1 tablet Orally on ce a day Active Fluticasone Propionate 50 MCG/ACT 1 spray in each nostril Nasally Once a day for 30 day(s) Active Promethazine HCl 12.5 MG 1 tablet as nee ded Orally prn Active Jakafi 15 MG 1 tablet Orally Twic e a day for 30 day(s) Active Jhsskiibcf-JZIW-Xviooohs 50-325-40 MG 1 capsule as needed Orally every 6 hrs/prn Active Ferrous Sulfate 325 MG as directed Orally Active Betamethasone Dipropionate 0.05 % 1 application to affected area Externally as directed Active Furosemide 20 MG 1 tablet Orally Once a day for 30 day(s) Active Omeprazole 20 MG 1 capsule Orally Onc e a day for 30 day(s) 02/24/2017 Active Omeprazole 20 MG one Orally Twice a d ay as needed for reflux. for 30 day(s) 04/24/2024 Active Loratadine 10 MG 1 tablet Orally Once a day Active Topiramate 100 MG 1 tablet Orally Twic e a day Active Cyanocobalamin 1000 MCG/ML as directed Orally Active Naproxen 500 MG 1 tablet as needed Orally every 12 hrs Active Mometasone Furoate 0.1 % 1 application E xternally Once a day Active IMMUNIZATIONS Vaccine Route Administration Date Status Comme nts Influenza Unknown 03/17/2021 Administered Influenza Unknown 06/07/2022 Administered Influenza Unknown 05/02/2023 Administered SOCIAL HISTORY Tobacco Use: Social History Observation Description Date Details (start date - stop date) Never Smoker NA - NA Sex Assigned At : Social History Observation Description Sex Assigned At Unknown Tobacco Use/Smoking Question Answer Notes Patient is a nonsmoker Alcohol Screen Question Answer Notes Did you have a drink containing alcohol in the p ast year? No Points 0 Interpretation Negative PROBLEMS Problem Type ICD Code Onset Dates Problem Status W/U Status Risk SNOMED Code Notes Problem Gastroesophageal reflux disease without esophagitis (K21.9) Active confirmed 231881989 Problem Bloating (R14.0) Active confirmed 52041 9008 Problem Irritable bowel syndrome with constipation (K58.1) Active confirmed 933285710 Problem Gastroesophageal reflux (K21.9) Active confirmed Esophageal reflux finding (183228724) Problem Abnormal findings in stool (R19.5) Active confirmed 964742395 VITAL SIGNS Temperature 97.5 degrees Fahrenheit 04/24/2024 Blood pressure diastolic 00 mm Hg 04/24/2024 Height 63 in 04/24/2024 Blood pressure systolic 000 mm Hg 04/24/2024 Weight 152 lb 6 oz lbs 04/24/2024 BMI 26.99 kg/m2 04/24/2024 Encounters Encounter Location Date Provider Diagnosis [facility] [place] [facility] [address] [place], [place] [id number] 08/11/2023 Sy Lam Jr Heme + stool R19.5 [facility] [address] [facility] [address] [place] [address] 01/24/2024 Sy Lam Jr [facility] [address] [place] [phone] 04/24/2024 Sy Lam Jr Gastroesophageal reflux disease without esophagitis K21.9 and Irritable bowel syndrome with constipation K58.1 [facility] [address] [facility] [address] [place] [phone] 04/25/2024 Sy Lam Jr [facility] [address] [address] 08/24/2023 Sy Lam Jr ASSESSMENTS Encounter Date Diagnosis Assessment Notes Treatment Notes Treatment Clinical Notes 08/11/2023 Heme + stool (ICD-10 - R19.5) 04/24/2024 Gastroesophageal ref lux disease without esophagitis (ICD-10 - K21.9) 04/24/2024 Irritable bowel syndrome with constipation (ICD-10 - K58.1) PLAN OF TREATMENT Pending Test Test Name Order Date STOOL WBC 05/30/2023 OVA & PARASITES (O&P) 05/30/2023 CALPROTECTIN, STOOL 05/30/2023 Future Test Test Name Order Date UPPER GI ENDOSCOPY 10/29/2021 COLONOSCOPY 10/29/2021 COLONOSCOPY 06/14/2023 Next Appt Details Provider Name:Sy catherine Jr, 04/30/2025 10:00:00 AM, [address] [place] [address], [address] [facility], [place], [address], Insurance Providers Payer Name Payer Address Payer Phone Subscriber Number Group Number Insured Name Patient Relationship to Insured Coverage Start Date Coverage End Date [facility] [address] [address] [place], [place] [id number] ROLLY SHELL Self - patient is the insured MEDICAL (GENERAL) HISTORY Medical History History ICD Code hypertension Essential thrombocytosis/myelofibrosis, 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 difficile colitis Gastroesophageal reflux dise ase, EGD 12/05, no H. pylori or Arenas's esophagus Anxiety Migraine headaches Colonoscopy 08/09, normal including biops ies, ten-year followup Surgical History Surgery Date(Month/Year) bone marrow biopsy mole removed-benign 2016 umbilical hernia surgery 07/20/22
--- OUTSIDE RECORDS SUMMARY | 2024-06-25 16:04 | XMS_ITS ---
Author Organization [facility] Address [address] [place] [address] Care Team Providers Care Livestock Speculator Name Role Phone Mary Garcia Primary Care Provider Unavailab Sy Gregorio Jr Unavailable [phone] Irineo Ahn Unavailable Unavailable ALLERGIES Allergen (clinical drug ingredient) Drug/Non Drug Allergy documented on EMR Reaction Allergy Type Onset Date Status Penicillin Unknown Drug Allergy Active REASON FOR VISIT Patient presents today for gerd, ibs MEDICATIONS Medication SIG (Take, Route, Frequency, Duration) Notes Start Date End Date Status Fluticasone Propionate 50 MCG/ACT 1 spray in each nostril Nasally Once a day for 30 day(s) Active Jakafi 15 MG 1 tablet Orally Twic e a day for 30 day(s) Active Ferrous Sulfate 325 MG as directed Orally Active Cyanocobalamin 1000 MCG/ML as directed Orally Active Mometasone Furoate 0.1 % 1 application E xternally Once a day Active Vitamin D3 50 MCG (2000 UT) 1 capsule Or ally Once a day for 30 day(s) Active Betamethasone Dipropionate 0.05 % 1 application to affected area Externally as directed Active Omeprazole 20 MG 1 capsule Orally Onc e a day for 30 day(s) 02/24/2017 Active Omeprazole 20 MG one Orally Twice a d ay as needed for reflux. for 30 day(s) 04/24/2024 Active Promethazine HCl 12.5 MG 1 tablet as nee ded Orally prn Active Ngsyjgwqkx-DRLX-Wiumnncx 50-325-40 MG 1 capsule as needed Orally every 6 hrs/prn Active Loratadine 10 MG 1 tablet Orally Once a day Active Topiramate 100 MG 1 tablet Orally Twic e a day Active Naproxen 500 MG 1 tablet as needed Orally every 12 hrs Active Anagrelide HCl 0.5 MG 1 capsule Orally T wice a day Active Amitriptyline HCl 50 MG 1 tablet Orally Once a day Active clonazePAM 0.5 MG 1 tablet Orally QHS Active Propranolol HCl 60 MG 1 tablet Orally on ce a day Active Furosemide 20 MG 1 tablet Orally Once a day for 30 day(s) Active SOCIAL HISTORY Tobacco Use: Social History Observation Description Date Details (start date - stop date) Never Smoker NA - NA Sex Assigned At : Social History Observation Description Sex Assigned At Unknown Tobacco Use/Smoking Question Answer Notes Patient is a nonsmoker Alcohol Screen Question Answer Notes Did you have a drink containing alcohol in the p ast year? No Points 0 Interpretation Negative VITAL SIGNS BMI 26.99 kg/m2 04/24/2024 Blood pressure systolic 000 mm Hg 04/24/20 24 Blood pressure diastolic 00 mm Hg 024 Height 63 in 04/24/2024 Temperature 97.5 degrees Fahrenheit 04/24/20 24 Weight 152 lb 6 oz lbs 04/24/2024 Encounters Encounter Location Date Provider Diagnosis [facility] [address] [place] [address] 04/24/2024 Sy Lam Jr Gastroesophageal reflux disease without esophagitis K21.9 and Irritable bowel syndrome with constipation K58.1 ASSESSMENTS Encounter Date Diagnosis Assessment Notes Treatment Notes Treatment Clinical Notes 04/24/2024 Gastroesophageal ref lux disease without esophagitis (ICD-10 - K21.9) 04/24/2024 Irritable bowel syndrome with constipation (ICD-10 - K58.1) PLAN OF TREATMENT Medication Medication Name Sig Start Date Stop Date Notes Omeprazole 20 MG one Orally Twice a d ay as needed for reflux. for 30 day(s) 04/24/2024 Next Appt Details Follow Up: 1 Year, Reason: Provider Name:Sy catherine Jr, 04/30/2025 10:00:00 AM, [address], [address], [place], [address],
--- OUTSIDE RECORDS SUMMARY | 2024-06-25 16:04 | XMS_ITS ---
Author Organization [facility] Address [address] [place] [address] Care Team Providers Care Hotbed Transfer Operator Name Role Phone Mary Garcia Primary Care Provider Unavailab Sy Gregorio Jr Unavailable [phone] Irineo Ahn Unavailable Unavailable REASON FOR VISIT Patient presents today for gerd, ibs Encounters Encounter Location Date Provider Diagnosis [facility] [address] [place] [address] 01/24/2024 Sy Lam Jr PLAN OF TREATMENT Next Appt Details Provider Name:Sy catherine Jr, 04/30/2025 10:00:00 AM, [address] [facility], [address], [place], [address],
== END 2024-06-19 04:11 | disposition home or self-care (01) ==
PROVIDERS: Emergency Provider Internal Medicine; PCP Internal Medicine
DX: F41.9 Anxiety disorder, unspecified (principal); R42 Dizziness and giddiness; M79.10 Myalgia, unspecified site; Z79.899 Other long term (current) drug therapy
CPT/HCPCS: 36415; 80053; 83735; 85025; 96361; 96374; 96375; 99284; J2060; J2405

== ENCOUNTER 2024-12-03 08:28 | Outpatient (AMB) | payer OTHER, SELFPAY ==
--- OUTSIDE RECORDS SUMMARY | 2024-12-03 08:38 | XMS_ITS ---
Author Organization [facility] Address [address] [facility] [address] [place] [address] Care Team Providers Care Traffic Control Operator Name Role Phone Mary Garcia Primary Care Provider Unavailab flakito Lam Jr, yS Unavailable Irineo Ahn Unavailable Unavailable REASON FOR VISIT Patient presents today for gerd, ibs Encounters Encounter Location Date Provider Diagnosis [facility] [address] [place] [address] 01/24/2024 Sy Lam Jr Plan Of Treatment Next Appt Details Provider Name:Sy catherine Jr, 04/30/2025 10:00:00 AM, [address] [place] [address], [address], [place], [address], Progress Notes * GIO DE SOUZAB:1980 (44 yo F)Acc No.[id number]:01/24/2024 Progress Notes Patient:?ROLLY DE SOUZA Provider:?Sy Lam MD :1980???Age:43 Y???Sex:Female D ate:01/24/2024 Address:[address] [place] [address] [address], [place] Pcp:Mary Mcghee Subjective: * Chief Complaints: * ???1. Patient presents today for gerd, ibs. * Medical History:? Objective: * Vitals:? Assessment: Plan: * Treatment: * * The named appointment provid er may or may not be the originator of this progress note, and it is not deemed complete until electronically signed by the appointment provider. Sign off status: Pending * Provider:?Sy Lam MD Date:?0 01/24/2024 Generated for Vidhi echavarria/Kecia/Nessa on:?12/03/2024 08:38 AM EDT
--- OUTSIDE RECORDS SUMMARY | 2024-12-03 08:38 | XMS_ITS ---
Author Organization [facility] Address [address] [place] [address] Care Team Providers Care Seat Covers Trimmer Name Role Phone Mary Garcia Primary Care Provider Unavailab Sy Gregorio Jr Unavailable [phone] Irineo Ahn Unavailable Unavailable Allergies Allergen (clinical drug ingredient) Drug/Non Drug Allergy documented on EMR Reaction Allergy Type Onset Date Status Penicillin Unknown Drug Allergy Active REASON FOR VISIT Patient presents today for gerd, ibs Medications Medication SIG (Take, Route, Frequency, Duration) Notes [...] tablet as nee ded Orally prn Active Twpxregxfl-NCRB-Mdmwpdyc 50-325-40 MG 1 capsule as needed Orally [...] Once a day for 30 day(s) Active Social History Tobacco Use: Social History Observation Description Date Details (start date - stop date) Never Smoker NA - NA Tobacco Use/Smoking Question Answer Notes Patient is a nonsmoker Alcohol Screen Question Answer Notes Did you have a drink containing alcohol in the p ast year? No Points 0 Interpretation Negative Vital Signs Temperature 97.5 degrees Fahrenheit 04/24/20 24 Blood pressure systolic 000 mm Hg 04/24/20 24 Blood pressure diastolic 00 mm Hg 024 Height 63 in 04/24/2024 Weight 152 lb 6 oz lbs 04/24/2024 BMI 26.99 kg/m2 04/24/2024 Encounters Encounter Location Date Provider Diagnosis [facility] [address] [facility] [facility] [address] [place] [address] 04/24/2024 Sy Lam Jr Gastroesophageal reflux disease without esophagitis K21.9 and Irritable bowel syndrome with constipation K58.1 Assessments Encounter Date Diagnosis (ICD Code) Assessment Notes Treatment Notes Treatment Clinical Notes Section Notes 04/24/2024 Gastroesophageal reflux disease without esophagitis (ICD-10 - K21.9) Overall she is doing well. She can go to b.i.d. dosing of omeprazole for days when she has breakthrough symptoms. New prescription sent to pharmacy. She is up-to-date on colorectal cancer screening. IBS symptoms are under good control. She will continue a high-fiber diet. Followup in one year. 04/24/2024 Irritable bowel syndrome with constipation (ICD-10 - K58.1) Overall she is doing well. She can go to b.i.d. dosing of omeprazole for days when she has breakthrough symptoms. New prescription sent to pharmacy. She is up-to-date on colorectal cancer screening. IBS symptoms are under good control. She will continue a high-fiber diet. Followup in one year. Plan Of Treatment Medication Medication Name Sig Start Date Stop Date Notes Omeprazole 20 MG one Orally Twice a d ay as needed for reflux. for 30 day(s) 04/24/2024 Next Appt Details Follow Up: 1 Year, Reason: Provider Name:Sy catherine Jr, 04/30/2025 10:00:00 AM, [address], [address], [place], [address], Progress Notes * FRITZ DE SOUZAELSAB:1980 (43 yo F)Acc No.[id number]:04/24/2024 Progress Notes Patient:?ROLLY DE SOUZA Provider:?Sy Lam MD :1980???Age:43 Y???Sex:Female D ate:04/24/2024 Address:[address] [place] [address] [address] Pcp:Mary Mcghee Subjective: * Chief Complaints: * ???1. Patient presents today for gerd, ibs. * HPI: ???New symptom(s):? The patient is a pleasant 43-year-old woman seen today in followup of gastroesophageal reflux disease. Since we saw her last she's generally been doing well. She takes omeprazole on a daily basis but still does get some breakthrough symptoms. We discussed using a b.i.d. dosage strategy for this. We also discussed diet, lifestyle modifications, and weight management regarding the treatment of reflux. ?IBS symptoms are under good control with diet. 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 difficile colitis, Gastroesophageal reflux disease, EGD 12/05, no H. pylori or Arenas's esophagus, Anxiety, Migraine headaches, Colonoscopy 08/09, normal including biopsies, ten-year followup. * Surgical History:?bone marro w biopsy , mole removed-benign 2017, umbilical hernia surgery 07/20/22. * Family History:?Father: dece ased.?Mother: alive, diagnosed with HTN (hypertension).? NO KNOWN HX OF COLON CANCER. * Social History:?Tobacco Use:?Tobacco Use/Smoking?Patient is a?nonsmoker.?Drugs/Alcohol:?Alcohol Screen?Did you have a drink containing alcohol in the past year??No,?Points?0,?Interpretation?Negative.?Miscellaneous:?Marital status: single. Occupation: none. * Medications:?Taking Cyanocob alamin 1000 MCG/ML Liquid as directed Orally , Taking Mometasone Furoate 0.1 % Cream 1 application Externally Once a day, Taking Fluticasone Propionate 50 MCG/ACT Suspension 1 spray in each nostril Nasally Once a day, Taking Jakafi 15 MG Tablet 1 tablet Orally Twice a day, Taking Ferrous Sulfate 325 MG Capsule as directed Orally , Taking Furosemide 20 MG Tablet 1 tablet Orally Once a day, Taking Anagrelide HCl 0.5 MG Capsule 1 capsule Orally Twice a day, Taking Amitriptyline HCl 50 MG Tablet 1 tablet Orally Once a day, Taking clonazePAM 0.5 MG Tablet 1 tablet Orally QHS, Taking Propranolol HCl 60 MG Tablet 1 tablet Orally once a day, Taking Topiramate 100 MG Tablet 1 tablet Orally Twice a day, Taking Naproxen 500 MG Tablet 1 tablet as needed Orally every 12 hrs, Taking Loratadine 10 MG Tablet 1 tablet Orally Once a day, Taking Promethazine HCl 12.5 MG Tablet 1 tablet as needed Orally prn, Taking Zveysxsphs-GOZM-Uyuvtdld 50-325-40 MG Capsule 1 capsule as needed Orally every 6 hrs/prn, Taking Betamethasone Dipropionate 0.05 % Cream 1 application to affected area Externally as directed, Taking Omeprazole 20 MG Capsule Delayed Release 1 capsule Orally Once a day, Taking Vitamin D3 50 MCG (2000 UT) Capsule 1 capsule Orally Once a day, Discontinued Aspir-81 81 MG Tablet Delayed Release 1 tablet Orally Once a day, Medication List reviewed and reconciled with the patient * Allergies:?Penicillin. Objective: * Vitals:?Wt: 152 lb 6 oz, Ht: 63 in, BMI:26.99 Index, BP: 000/00 mm Hg, Temp: 97.5. * Examination: ???General Examination: ???On examination today, she appears well. Skin is anicteric. Lungs are clear. Heart shows a regular rate and rhythm. Abdomen is soft without focal mass or tenderness. Assessment: * Assessment: 1.?Gastroesophageal reflux d isease without esophagitis - K21.9 (Primary)?2.?Irritable bowel syndrome with constipation - K58.1? Overall she is doing well. S he can go to b.i.d. dosing of omeprazole for days when she has breakthrough symptoms. New prescription sent to pharmacy. She is up-to-date on colorectal cancer screening. IBS symptoms are under good control. She will continue a high-fiber diet. Followup in one year. Plan: * Treatment: * Procedure Codes:?3017F COLOR ECTAL CA SCREEN DOC REV, G9903 Pt scrn tbco id as non user, G9745 DOC RSN FOR NOT SCREEN/REC F/U HBP * Preventive Medicine:? ??Counseling:?Care goal follow-up plan:?Above Normal BMI Follow-up?Giving encouragement to exercise,?BMI management provided?Yes.? * Follow Up:?1 Year * * Sign off status: Completed true * Provider:?Sy Lam MD Date:?1 Generated for Vidhi echavarria/Kecia/eTransmitting on:?12/03/2024 08:38 AM EDT History and Physical Notes * HPI (History of Present Illness) Category Sub-Category Detail Notes Category Not es New symptom(s) The patient is a pleasant 43-year-old woman seen today in followup of gastroesophageal reflux disease. Since we saw her last she's generally been doing well. She takes omeprazole on a daily basis but still does get some breakthrough symptoms. We discussed using a b.i.d. dosage strategy for this. We also discussed diet, lifestyle modifications, and weight management regarding the treatment of reflux. IBS symptoms are under good control with diet. Examination Category Sub-Category Detail Notes Category Not es General Examination On exami nation today, she appears well. Skin is anicteric. Lungs are clear. Heart shows a regular rate and rhythm. Abdomen is soft without focal mass or tenderness.
--- OUTSIDE RECORDS SUMMARY | 2024-12-03 08:38 | XMS_ITS | Patient Health Record ---
Author Organization [facility] Address [address] [place] [address] Care Team Providers Care Polymer Specialist Name Role Phone Mary Garcia Primary Care Provider Unavailab Sy Gregorio Jr Unavailable Irineo Ahn Unavailable Unavailable Allergies Allergen (clinical drug ingredient) Drug/Non Drug Allergy documented on EMR Reaction Allergy Type Onset Date Status Penicillin Unknown Drug Allergy Active Reason For Referral No Information Medications Medication SIG (Take, Route, Frequency, Duration) Notes Start Date End Date Status Anagrelide HCl 0.5 MG 1 capsule Orally T wice a day Active Vitamin D3 50 MCG (1999) 1 capsule Or ally Once a day [...] e a day for 30 day(s) Active Mrzzvozkyh-MKKS-Vwippfjd 50-325-40 MG 1 capsule as needed Orally [...] application E xternally Once a day Active Immunizations Vaccine Route Administration Date Status Comme nts Influenza Unknown 03/17/2021 Administered Influenza Unknown 06/07/2022 Administered Influenza Unknown 05/02/2023 Administered Social History Tobacco Use: Social History Observation Description Date Details (start date - stop date) Never Smoker NA - NA Tobacco Use/Smoking Question Answer Notes Patient is a nonsmoker Alcohol Screen Question Answer Notes Did you have a drink containing alcohol in the p ast year? No Points 0 Interpretation Negative Problems Problem Type SNOMED Code ICD Code Onset Dates Problem Status W/U Status Risk Notes Problem 131127618 Bloating (R14.0) Active confirmed Problem 235045247 Gastroesophageal reflux disease without esophagitis (K21.9) Active confirmed Problem 331897216 Abnormal finding s in stool (R19.5) Active confirmed Problem Esophageal reflux finding (972004819) Gastroesophageal reflux (K21.9) Active confirmed Problem 906855387 Irritable bowel syndrome with constipation (K58.1) Active confirmed Vital Signs Temperature 97.5 degrees Fahrenheit 04/24/2024 Blood pressure diastolic 00 mm Hg 04/24/2024 Height 63 in 04/24/2024 Blood pressure systolic 000 mm Hg 04/24/2024 Weight 152 lb 6 oz lbs 04/24/2024 BMI 26.99 kg/m2 04/24/2024 Encounters Encounter Location Date Provider Diagnosis [facility] [address] [place] [address] 04/24/2024 Sy Lam Jr Gastroesophageal reflux disease [...] Followup in one year. Plan Of Treatment Pending Test Test Name Order Date STOOL WBC 05/30/2023 OVA & PARASITES (O&P) 05/30/2023 CALPROTECTIN, STOOL 05/30/2023 Future Test Test Name Order Date UPPER GI ENDOSCOPY 10/29/2021 COLONOSCOPY 10/29/2021 COLONOSCOPY 06/14/2023 Next Appt Details Provider Name:Sy catherine , 04/30/2025 10:00:00 AM, [address] [place] [address], [facility] [address], [place], [address], Insurance Providers Payer Name Payer Address Payer Phone Subscriber Number Group Number Insured Name Patient Relationship to Insured Coverage Start Date Coverage End Date [facility] [address] [address] [place], [place] [id number] ROLLY SHELL Self - patient is the insured Medical (General) History Medical History History ICD Code hypertension Essential thrombocytosis/myelofibrosis, 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 difficile colitis Gastroesophageal reflux dise ase, EGD 12/05, no H. pylori or Arenas's esophagus Anxiety Migraine headaches Colonoscopy 08/09, normal including biops ies, ten-year followup Surgical History Surgery Date(Month/Year) bone marrow biopsy mole removed-benign 2017 umbilical hernia surgery 07/20/22
--- OUTSIDE RECORDS SUMMARY | 2024-12-03 08:38 | XMS_ITS | Encounter Summary ---
Author Organization [employer] [facility] Address [address] [place] [address] 7 [place] [address] Care Team Providers Care Bag Tester Name Role Phone Unavailable Primary Care Provider Unavailabl e Encounter Details Date Type Department Care Team (Latest Contact Info) Description 02/26/2021 Abstract [facility] CONVERSIONS Dental, Provider, DDS Social History Tobacco Use Types Packs/Day Years Used Date Smoking Tobacco: Never Assessed Comments Unknown Sex and Gender Information Value Date Recorded Sex Assigned at Female 05/16/2022 10:18 AM EDT Legal Sex Female 10:18 AM EDT Gender Identity Female 05/16/2022 10:18 AM EDT Sexual Orientation Choose not to disclose 2021 10:18 AM EDT documented as of this encounter Plan of Treatment Not on file documented as of this encounter Visit Diagnoses Not on filedocumented in this encounter
--- OUTSIDE RECORDS SUMMARY | 2024-12-03 08:38 | XMS_ITS ---
Author Organization [facility] Address [address] [facility] [address] [place] [address] Care Team Providers Care Dyer Assistant Name Role Phone Mary Garcia Primary Care Provider Unavailab Sy Gregorio Jr Unavailable Irineo Ahn Unavailable Unavailable REASON FOR VISIT gerd, ibs Encounters Encounter Location Date Provider Diagnosis [facility] [address] [place] [phone] 04/25/2024 Sy Lam Jr Plan Of Treatment Next Appt Details Provider Name:Sy catherine Jr, 04/30/2025 10:00:00 AM, [address] [place] [address], [address] [facility], [place], [address], Progress Notes * GIO DE SOUZAB:1980 (44 yo F)Acc No.[id number]:04/25/2024 Progress Notes Patient:?ROLLY DE SOUZA Provider:?Sy Lam MD :1980???Age:43 Y???Sex:Female D ate:04/25/2024 Address:[address] [place] [address] [address], [place], [place] Pcp:Mary Mcghee Subjective: * Chief Complaints: * ???1. Gerd, ibs. * Medical History:? Objective: * Vitals:? Assessment: Plan: * Treatment: * * The named appointment provid er may or may not be the originator of this progress note, and it is not deemed complete until electronically signed by the appointment provider. Sign off status: Pending * Provider:?Sy Lam MD Date:?1 Generated for Vidhi echavarria/Kecia/Nessa on:?12/03/2024 08:37 AM EDT
--- OUTSIDE RECORDS SUMMARY | 2024-12-03 08:38 | XMS_ITS | Encounter Summary ---
Author Organization [employer] Address [address] [place] [address] 7 [place] [address] Care Team Providers Care Nurse Midwife/Clinical Instructor Name Role Phone Unavailable Primary Care Provider Unavailabl e Encounter Details Date Type Department Care Team (Latest Contact Info) Description 08/20/2019 Abstract [facility] CONVERSIONS Dental, Provider, DDS Social History [...]
--- OUTSIDE RECORDS SUMMARY | 2024-12-03 08:38 | XMS_ITS | Clinical Summary ---
Author Organization [facility] Address [address] [place] [address] [address] [place] [address] Care Team Providers Care Manager Inventory Control Name Role Phone Unavailable Primary Care Provider Unavailabl e Allergies Active Allergy Reactions Criticality Noted Date Comments Ibuprofen 06/27/2022 Penicillin G 02/23/2023 Other reaction(s): Unknown Penicillin V 03/13/2013 Other reaction(s): Rash Penicillins Rash Low 06/27/2022 Medications acetaminophen (Tylenol) 500 MG tablet take 1 tablet (500MG) by oral route every 6 hours as needed 10/30/2020 Active amitriptyline (Elavil) 25 MG tablet Take 1 tablet by mouth at bed time. Active promethazine (Phenergan) 3.125 MG split tablet Take 1 tablet by mouth every 6 (six) hours. Active naproxen (Naprosyn) 500 MG tablet Take 1 tablet by mouth every 12 (twelve) hours. Active ferrous fumarate-vitami n C ER (Sosa-Sequeles 65-25) Active anagrelide (Agrylin) 0.5 MG capsule Take 2 capsules by mouth every 12 (twelve) hours. 01/27/2014 Active ascorbic acid (Vitamin C) 500 MG ER capsule Active aspirin 81 MG chewable tablet Chew 1 tablet at bed time. Active butalbital-acet aminophen-caffe ine (Fioricet) 50-300-40 MG capsule Take 1-2 capsules by mouth every 4 (four) hours. Active calcium carbonate 1500 (600 Ca) MG tablet Active chlorhexidine (Periogard) 0.12 % solution Place 15 mL into mouth between cheek and gum every 12 (twelve) hours. 02/18/2020 Active clindamycin (Cleocin) 300 MG capsule Take 1 capsule by mouth every 6 (six) hours. 10/30/2020 Active Folic Brpr-P8-W1-B12- D-Ca-Phos (Folgard) tablet Active ibuprofen 800 MG tablet Take 1 tablet by mouth every 8 (eight) hours. 11/18/2020 Active Loratadine (Claritin) 10 MG capsule Active meclizine (Antivert) 25 MG tablet Take 1 tablet by mouth every 8 (eight) hours. Active propranolol LA (Inderal LA) 60 MG 24 hr capsule Take 2 capsules by mouth at bed time. Active topiramate (Topamax Sprinkle) 25 MG capsule Take 2 capsules by mouth every 12 (twelve) hours. Active acetaminophen (Tylenol) 500 MG tabletIndicatio ns:Necrosis of dental pulp Take 1 tablet (500 mg) by mouth every 6 (six) hours if needed for mild pain for up to 20 doses. 20 tablet 03/02/2023 Active Active Problems Problem Noted Date Diagnosed Date Dental plaque 05/24/2023 Localized gingival recession, minimal 05/24/2023 Social History Tobacco Use Types Packs/Day Years Used Date Smoking Tobacco: Never Passive Smoke Exposure: Never Smokeless Tobacco: Never Tobacco Cessation:Counseling Given: Not Answered Alcohol Use Standard Drinks/Week Comments Never 0 (1 standard drink = 0.6 oz pur e alcohol) Comments Unknown Sex and Gender Information Value Date Recorded Sex Assigned at Female 05/16/2022 10:18 AM EDT Legal Sex Female 10:18 AM EDT Gender Identity Female 05/16/2022 10:18 AM EDT Sexual Orientation Choose not to disclose 2021 10:18 AM EDT Last Filed Vital Signs Vital Sign Reading Time Taken Comments Blood Pressure 120/74 05/24/2023 8:11 AM EST Pulse 72 05/24/2023 8:11 AM EST Temperature - - Respiratory Rate - - Oxygen Saturation - - Inhaled Oxygen Concentration - - Weight - - Height - - Body Mass Index - - Plan of Treatment Health Maintenance Due Date Last Done Comments CT Colonography 1978 Colonoscopy 1978 Colorectal Cancer Screening 1978 Depression Screening 1978 FIT DNA/Cologuard 1978 FIT 1978 FOBT 1978 HIV Screening 1978 SDOH Screening 1978 Sigmoidoscopy 1978 Disability Screening 1978 Alcohol/Substance Use Screening 1990 Family Planning (PISQ) 1993 Hepatitis C Screening 1996 DTaP/Tdap/Td Vaccines (1 - Tdap) 1997 Hepatitis B Vaccines (1 of 3 - 19+ 3-dose series) 1997 Pap Smear 09/28/1999 Cervical Cancer Screening 2008 HPV/Cotest 2008 Mammogram 2018 Dental Oral Exam 11/23/2023 05/24/2023, 06/27/2022 Dental Prophylaxis 11/23/2023 05/24/2023, 06/27/2022 Dental X-Ray: Full Mouth 02/28/2024 02/26/2021 Dental X-Ray: Bitewings 03/03/2024 03/02/20 23, 10/18/2022, 06/27/2022 COVID-19 Vaccine ( season) 2024 05/26/2021, 10/07/2020 Influenza Vaccine (#1) 2024 , 05/06/2022, 03/20/2020, Additional history exists Tobacco Screening 05/24/2024 05/24/2023 Zoster Vaccines (1 of 2) 2028 RSV Patients and Patients Aged 60 years or older (1 - 1-dose 75+ series) 2053 HIB Vaccines Aged Out No longer eligi ble based on patient's age to complete this topic HPV Vaccines Aged Out No longer eligi ble based on patient's age to complete this topic Hepatitis A Vaccines Aged Out No long er eligible based on patient's age to complete this topic IPV Vaccines Aged Out No longer eligi ble based on patient's age to complete this topic Meningococcal B Vaccine Aged Out No l onger eligible based on patient's age to complete this topic Meningococcal Vaccine Aged Out No anai kenyatta eligible based on patient's age to complete this topic Pneumococcal Vaccine: Pediatrics (0 to 5 Years) and At-Risk Patients (6 to 49) Years) Aged Out No longer eligible based on patient's age to complete this topic RSV under 20 months Aged Out No longe r eligible based on patient's age to complete this topic Rotavirus Vaccines Aged Out No longer eligible based on patient's age to complete this topic Procedures Procedure Name Priority Date/Time Associated Diagnosis Comments Full PROPHYLAXIS - ADULT Routine 023 8:00 AM EST PERIODIC ORAL EVALUATION - ESTABLISHED PATIENT Routine 05/24/2023 8:00 AM EST BITEWING - SINGLE RADIOGRAPHIC IMAGE Routine 03/02/2023 8:15 AM EDT Necrosis of dental pulp from Last 3 Months or Most Recently Relevant to Health Maintenance Insurance [facility] STANDARD [facility] STAND ADULT
--- OUTSIDE RECORDS SUMMARY | 2024-12-03 08:38 | XMS_ITS | Encounter Summary ---
Author Organization [employer] Address [address] [place] [address] [address] [place] [address] Care Team Providers Care Transfer Operator Name Role Phone Unavailable Primary Care Provider Unavailabl e Encounter Details Date Type Department Care Team (Latest Contact Info) Description 08/21/2018 Abstract [facility] CONVERSIONS Dental, Provider, DDS Social History Tobacco [...]
--- NOTE | 2024-12-03 09:02 | MHC.PC.OV ---
Vital Signs 12/03/24 09:06 Height 5 ft 3 in Weight 144 lb BMI 25.5 BP 128/74 Blood Pressure Location Lt brachial Position Sitting Intake Visit Reasons: annual exam Intake Note: Patient here for a physical exam Chief Of Staff Doctor Required: No Accompanied by: Mother Allergies ondansetron Allergy (Intermediate, Verified 12/03/24 09:43) abdominal pain Penicillins [PCN] Allergy (Intermediate, Verified 12/03/24 09:43) Rash ibuprofen [From Motrin] Adverse Reaction (Verified 12/03/24 09:43) Heartburn Medication List - Last Reconciled 12/03/24 by Mary Mcghee MD amitriptyline 50 mg PO BEDTIME amlodipine 10 mg PO DAILY ocpqotkihj-hchyziodfnqlq-yxfd 50-325-40 mg 1 tab PO DAILY PRN esomeprazole magnesium DR (Nexium Packet) 40 mg PO DAILY fluticasone propionate 50 mcg/actuation (Flonase Allergy Relief) 1 spray intranasal DAILY 30 days letermovir (Prevymis) 480 mg PO DAILY medroxyprogesterone (Provera) 10 mg PO DAILY mirtazapine 15 mg PO BEDTIME mometasone 0.1% 3 ea topical Q OTHER DAY PRN posaconazole mg PO prochlorperazine maleate 10 mg PO Q6H propranolol ER (Inderal LA) 60 mg PO BID ruxolitinib (Jakafi) 5 mg PO BID sodium bicarbonate mg PO sulfamethoxazole-trimethoprim 800-160 mg tabs PO topiramate 100 mg PO BID valacyclovir 500 mg PO BID Tobacco use date assessed: 12/03/24 Dental Screening Dental Screen Date: 12/03/24 Did you have a dental visit in the last 12 months?: Yes Did you have a dental problem in the last 6 months where you did not have access to dental care?: No Was dental information given to patient?: Patient has dentist HPI HPI Comments History of Present Illness Details The patient is a 44-year-old female presenting for her annual physical examination. 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 She continues to experience low white blood cell counts, warranting further treatment with a white blood cell infusion next week. The patient's allergic reactions to ondansetron, penicillin, and ibuprofen are well-documented. She has a background of depression and insomnia, for which she takes mirtazapine nightly. The patient previously had an umbilical hernia repair in 2022 and was noted to have anemia in June, with ongoing laboratory monitoring occurring biweekly. Recent preventive health measures include a mammography last December, with an upcoming gynecological evaluation scheduled for January. The patient did not receive the EVE vaccination and will reconsider vaccinations as her condition improves. - Mammogram completed in December last - Gynecological examination scheduled for January - Bone marrow transplant performed on May 09 - Vaccination status: Pending EVE vaccine - Ongoing laboratory monitoring twice weekly - Routine follow-up in six months [facility] Medical History HTN (hypertension) Essential thrombocytosis Iron deficiency anemia GERD (gastroesophageal reflux disease) C. difficile colitis Abdominal pain Diarrhea Anxiety Leg edema Hypovitaminosis D Constipation by delayed colonic transit Hyperviscosity syndrome Migraines Inappropriate sinus tachycardia Surgical History (Updated 12/03/24 @ 09:51 by Mary Mcghee MD) Autologous bone marrow transplantation status History of umbilical hernia repair (07/20/22) Hx of esophagogastroduodenoscopy Hx of colonoscopy History of bone marrow biopsy History of tonsillectomy and adenoidectomy Family History Father Alcoholism Liver failure Mother Hypertension Maternal Grandmother No problems noted. Maternal Grandfather Stroke Paternal Grandmother Breast cancer Maternal Aunt Fibroids Paternal Grandmother No problems noted. Social History Household Members: Family Household Members Other:: Mom Housing: Apartment Are you a primary client care manager to a significant other at home: No Do you presently have visiting nurse or other home services: No Alcohol intake: never Patient Tobacco Use Status: Never used Tobacco e-Cigarette/Vaping Use: Never Used Second Hand Smoke Exposure: No Advance Directives Date on File: 10/22/15 service: No Current occupational status: unemployed Cognitive needs: No Hearing needs: No Vision needs: Yes Questionnaire PHQ-9 Over the last 2 weeks, how often have you been bothered by any of the following problems? 1. Little interest or pleasure in doing things: not at all 2. Feeling down, depressed, or hopeless: not at all 3. Trouble falling or staying asleep, or sleeping too much: several days 4. Feeling tired or having little energy: not at all 5. Poor appetite or overeating: not at all 6. Feeling bad about yourself - or that you are a failure or have let yourself or your family down: not at all 7. Trouble concentrating on things, such as reading the newspaper or watching television: not at all 8. Moving or speaking so slowly that other people could have noticed. Or the opposite - being so fidgety or restless that you have been moving around a lot more than usual: not at all 9. Thoughts that you would be better off or of hurting yourself in some way: not at all Total score: 1 Depression Screening Interpretation: Negative Depression Screening Done: Yes 10069 - PHQ-9 Billing: Yes Source: Developed by Drs. Sorin Rodrigues, Ruth Duncan, Lucien Whaley and colleagues, with an educational fabio from [employer]. Thrive Questionnaire Date Thrive assessed: 12/03/24 I am a: Patient What is your living situation today?: I have a steady place to live Within the past 12 months, did the food you bought not last and you didn't have the money to get more?: Never true Within the past 12 months, did you worry whether your food would run out before you got money to buy more?: Never true Do you have trouble paying for medicines?: No Do you have trouble getting transportation to medical appointments?: No Do you have trouble paying your heating and electricity bill?: No Do you have trouble taking care of your child, family member or friend?: No Do you have trouble with day-to-day activities such as bathing, preparing meals, shopping, managing finances, etc.?: No Are you currently unemployed and looking for a job?: No Are you interested in more education?: No Please select the resources that you would like help with: None Currently or been in a relationship where the following occur: No concerns reported THRIVE Score: 0 AUDIT C Alcohol Use Questionnaire (AUDIT-C) 1. How often do you have a drink containing alcohol?: Never Total Score: 0 Score Reviewed/Action Taken: No MILLY-7 AMB Questionnaire MILLY-7 Date MILLY - 7 assessed: 12/03/24 Feeling nervous, anxious, or on edge: 0 = Not at all Not being able to stop or control worryin = Not at all Worrying too much about different things: 0 = Not at all Trouble relaxin = Not at all Being so restless that it is hard to sit still: 0 = Not at all Becoming easily annoyed or irritable: 0 = Not at all Feeling afraid as if something awful might happen: 0 = Not at all Total MILLY-7 score (0-4 normal; 5-9 mild; 10-14 moderate; 15-21 severe): 0 Source: Developed by Drs. Sorin Rodrigues, Ruth Duncan, Lucien Whaley and colleagues, with an educational fabio from [employer]. MILLY-7 Assessment Billing MILLY-7 Assessment Tool: MILLY-7 Assessment 06781 Review of Systems Const All systems reviewed & are unremarkable except as noted in HPI and below Card Denies chest pain at rest, Denies chest pain with activity, Denies edema, Denies irregular heart rhythm, Denies claudication, Denies dyspnea, Denies dyspnea on exertion, Denies orthopnea, Denies paroxysmal nocturnal dyspnea and Denies slow heart rate Resp Denies cough, Denies dyspnea and Denies dyspnea on exertion Physical exam (Primary Care) Vital Signs: Last Vital Signs BP 128/74 12/03/24 09:06 BMI result Body Mass Index 25.5 Tobacco/Smoking Status: Tobacco use Status Tobacco use date assessed 12/03/24 12/03/24 09:22 Patient Tobacco Use Status Never used Tobacco 12/03/24 09:22 e-Cigarette/Vaping Use Never Used 12/03/24 09:22 PHQ-9: PHQ-9 Score PHQ-9: Total score 1 12/03/24 09:47 Depression Screening Interpretation: Negative Thrive Assessment: Date of Thrive Assessment Date Thrive assessed 12/03/24 12/03/24 09:22 Currently or been in a relationship where the following occur: No concerns reported HENMT Head: Yes normal to inspection, Yes normocephalic and Yes atraumatic Ears: external ears normal Eyes General: appearance normal, both eyes and all related structures Eyelids: Yes eyelids normal Conjunctivae: conjunctivae normal Neck Neck: Yes normal visual inspection and Yes supple Resp Effort & Inspection: normal respiratory effort Auscultation: clear to auscultation bilaterally Cardio Jugular venous distension: no JVD Rate: regular rate Rhythm: regular rhythm Heart sounds: S1 normal heart sound present and S2 normal heart sound present GI Inspection: Yes normal to inspection Palpation (GI): Soft to palpation and nontender Auscultation: normal bowel sounds Skin General skin exam: no rashes or lesions noted Neuro General: no focal motor deficits Extrem General: Yes full ROM Psych Appearance: grossly normal Coding Level of Care Code Complex EM visit Add On G2211 Diagnoses Physical exam Z00.00 Essential thrombocytosis D47.3 Additional Codes MILLY-7 Assessment Billing - MILLY-7 Assessment Tool: MILLY-7 Assessment 16693 ([id number]) PHQ-9 - 22686 - PHQ-9 Billing: Yes ([id number]) Time Spent (min) 31 Assessment & Plan Assessment & Plan (1) Physical exam: Code(s): Z00.00 - Encounter for general adult medical examination without abnormal findings Category: Medical (2) Essential thrombocytosis: Code(s): D47.3 - Essential (hemorrhagic) thrombocythemia Category: Medical Plan The current management plan involves monitoring marrow recovery, addressing leukopenia with an upcoming white blood cell infusion, reassessing vaccination delays, particularly the EVE vaccine, and continuing ongoing anemia monitoring with lab work. The patient is informed of her mammogram and impending gynecology appointments, and her allergies and medication regimen will remain unchanged. A follow-up visit in six months will be set to assess progress and overall recovery. Patient was informed and verbally consented to the use of an ambient scribe for clinic note documentation during this visit. During the visit, I reviewed the patient's current status post-bone marrow transplant and the ongoing management of her myeloproliferative disorder and leukopenia. We discussed her upcoming white blood cell infusion and its importance for her recovery. I advised on reviewing her vaccination status once stable conditions permit and discussed ongoing monitoring for anemia. We also addressed her medication management for depression and insomnia through mirtazapine. The patient consented to continue with biweekly lab assessments. I emphasized the importance of ongoing precautions while in quarantine. 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
[2024-12-03 09:06] VITALS: BP 128/74; BMI 25.5
== END 2024-12-03 09:57 | disposition home or self-care (01) ==
LOC: HO.HMCH 08:29
PROVIDERS: PCP Internal Medicine; Visit Provider Internal Medicine
DX: Z00.00 Encounter for general adult medical examination without abnormal findings (principal); D47.3 Essential (hemorrhagic) thrombocythemia

== ENCOUNTER → 2024-12-03 08:28 | Outpatient (BNVA) | payer OTHER, SELFPAY | PROVIDERS: PCP Internal Medicine; Visit Provider Internal Medicine | DX: Z00.00 Encounter for general adult medical examination without abnormal findings (principal); D47.3 Essential (hemorrhagic) thrombocythemia | CPT/HCPCS: 96127; 99396 ==

== ENCOUNTER 2025-01-21 08:23 | Outpatient (REF) | payer OTHER, SELFPAY ==
--- NOTE | ~2025-01-21 | MM_ITS ---
EXAMINATION: MM SCREENING DIGITAL BREAST TOMOSYNTHESIS, BILATERAL CLINICAL INFORMATION: Screening. Asymptomatic. COMPARISON: Mammography: Comparison is made with available priors TECHNIQUE: Digital breast mammography with tomosynthesis is performed in both the craniocaudal and mediolateral oblique views along with computer-aided detection (CAD). FINDINGS: The breasts are heterogeneously dense, which may obscure small masses (ACR BI-RADS breast composition Category c). There are no significant masses, abnormal calcifications, or other abnormalities. MM/MM tomosynthesis screening BI IMPRESSION: No mammographic evidence of malignancy. ASSESSMENT: BI-RADS BI-RADS 1 - Negative RECOMMENDATION: Routine annual mammography screening. 1 year F/U This examination should not preclude the clinical evaluation of a suspicious palpable abnormality. This patient's information was entered into a reminder system with a target due date for their next mammogram. Electronically signed by: Moraima Leon DO 02/03/2025 08:47 AM EDT
--- OUTSIDE RECORDS SUMMARY | 2025-01-21 08:27 | XMS_ITS | Encounter Summary ---
Author Organization [email or web address] Address [address] [place] [address] 7 [place] [address] Care Team Providers Care Shop Supervisor Name Role Phone Unavailable Primary Care Provider Unavailabl e Encounter Details Date Type Department Care Team (Latest Contact Info) Description 08/20/2019 Abstract [facility] CONVERSIONS Dental, Provider, DDS Social History [...]
--- OUTSIDE RECORDS SUMMARY | 2025-01-21 08:27 | XMS_ITS | Encounter Summary ---
Author Organization [facility] Address [address] [place] [address] Care Team Providers Care Assistant Librarian Name Role Phone Mary Garcia Primary Care Provider [phone] Encounter Details Date Type Department Care Team (Late st Contact Info) Description 05/22/2024 Lab Requisition [facility] [employer] [facility] [address] [place] [address] Ildefonso Lugo MD PhD [address] [place] [address] Polycythemia vera Social History Tobacco Use Types Packs/Day Years Used Date Smoking Tobacco: Never Smokeless Tobacco: Never [facility] Utilities Answer Date Recorded In the past 12 months has th e electric, gas, oil, or water company threatened to shut off services in your home? No 05/03/2024 Hunger Vital Sign Answer Date Recorded Within the past 12 months, y ou worried that your food would run out before you got the money to buy more. Never true 05/03/20 24 Within the past 12 months, t he food you bought just didn't last and you didn't have money to get more. Never true 05/03/2024 Transportation Answer Date Recorded In the past 12 months, has l ack of reliable transportation kept you from medical appointments, meetings, work or from getting things needed for daily living? No 05/03/2024 Housing Answer Date Recorded Housing Risk Low 2 05/03/2024 Housing Risk Medium Not on file 05/03/2024 Housing Risk High Not on file 05/03/2024 What is your living situation today? LSSTEADY 05/03/2024 Comments Unknown Sex and Gender Information Value Date Recorded Sex Assigned at Female 11/14/2023 1:45 PM EDT Legal Sex Female 3:31 PM EDT Gender Identity Female 11/14/2023 1:45 PM EDT Sexual Orientation Straight 11/14/2023 1: 45 PM EDT documented as of this encounter Plan of Treatment Upcoming Encounters Date Type Department Care Team (Late st Contact Info) Description 01/23/2025 7:20 AM EDT Infusion [facility] [address] [place] [address] 01/23/2025 8:30 AM EDT Infusion [facility] [address] [place] [address] 149[address] Ildefonso Lugo MD PhD [address] [place] [address] 01/27/2025 7:30 AM EDT Infusion [facility] [address] [place] [address] 20413 01/27/2025 8:30 AM EDT Follow-Up [facility] [address] [place] [address] Alexsandra Adams NP [address] [place] [address] 01/27/2025 9:30 AM EDT Infusion [facility] Infusion Clinic [address] [place] [address] 89786 01/30/2025 8:00 AM EDT Infusion [facility] [address] [place] [address] 58716 01/30/2025 9:00 AM EDT Infusion [facility] Infusion [facility] [address] [place] [address] 50434 02/03/2025 7:20 AM EDT Infusion [facility] Building [facility] [address] [place] [address] 02/03/2025 8:30 AM EDT Follow-Up [facility] [address] [place] [address]49 Karlie Gallo PA [address] [facility]ematology[place] [address] 02/03/2025 9:30 AM EDT Infusion [facility] Building Infusion Clinic [address] [place] [address] 87288 02/06/2025 8:00 AM EDT Infusion [facility] [address] [place] [address] 150[address] Ildefonso Lugo MD PhD [address] [place] [address] 14431 02/06/2025 9:00 AM EDT Infusion [facility] Building Infusion [facility] [address] [place] [address] 845[address] 02/10/2025 8:00 AM EDT Infusion [facility] [address] [place] [address] 11542 02/10/2025 9:00 AM EDT Follow-Up [facility] [address] [place] [address] Karlie Gallo PA [address] [place] [address] Hematology[place] [address] 02/10/2025 10:00 AM EDT Infusion [facility] Building Infusion Clinic [address] [place] [address] 96875 02/13/2025 7:20 AM EDT Infusion [facility] [address] [place] [address] 02/13/2025 8:00 AM EDT Infusion [facility] Building Infusion Clinic [address] [place] [address] 02/17/2025 7:20 AM EDT Infusion [facility] [address] [place] [address] 02/17/2025 8:00 AM EDT Follow-Up [facility] [address] [place] [address] Ildefonso Lugo MD PhD [address] [place] [address] 95057 02/17/2025 9:00 AM EDT Infusion [facility] Building Infusion Clinic [address] [place] [address] 12691 02/20/2025 8:00 AM EDT Infusion [facility] [address] [place] [address] 66194 02/20/2025 9:00 AM EDT Infusion [facility] Building Infusion Clinic [address] [place] [address] 74048 02/24/2025 7:20 AM EDT Infusion [facility] [address] [place] [address] 51868 02/24/2025 8:00 AM EDT Follow-Up [facility] [address] [place] [address] 28[address] Dominga Moeller NP [address] [place] [address] 02/24/2025 9:00 AM EDT Infusion [facility] Building Infusion Clinic [address] [place] [address] 49[address] 02/27/2025 8:00 AM EDT Infusion [facility] [address] [place] [address] 13385 02/27/2025 9:00 AM EDT Infusion [facility] Infusion [facility] [address] [place] [address] 57996 04/03/2025 10:00 AM EDT Infusion [facility] [address] [place] [address] Ildefonso Lugo MD PhD [address] [place] [address] documented as of this encounter Procedures * Due to [facility] law, this organization might not be sharing negative HIV tests. Procedure Name Priority Date/Time Associated Diagnosis Comments HLA BILL ONLY HIGH RESOLUTION HLA TYPING CLASS 1 AND 2 FULL Routine 02/08/2024 2:00 PM EDT Polycythemia vera (HCC) documented in this encounter Results * Due to [place] [employer] law, this organization might not be sharing negative HIV tests. 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)- Primary 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)- Primary 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)- Primary 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)- Primary 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)- Primary 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)- Primary 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)- Primary 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)- Primary 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)- Primary 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)- Primary 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)- Primary 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)- Primary 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)- Primary 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)- Primary 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)- Primary 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)- Primary 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)- Primary 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)- Primary 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)- Primary 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)- Primary 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 diff colonization 05/05/2024 05/05/2024 025 10:32 PM EST R/O C.diff 06/04/2024 06/05/2024 06/06/2024 12:0 5 AM EST R/O Norovirus 06/04/2024 06/05/2024 06/06/2024 10: 42 AM EST R/O C.diff 06/27/2024 06/27/2024 06/28/2024 1:49 AM EST R/O Respiratory Virus Infection 06/27/2024 06/27/2024 11:14 AM EST R/O Influenza 06/27/2024 06/27/2024 06/27/2024 11: 14 AM EST COVID-19 - Suspected infection 06/27/2024 06/27/2024 06/27/2024 11:14 AM EST R/O C.diff 07/23/2024 07/23/2024 07/24/2024 1:12 AM EST R/O Respiratory Virus Infection 11/28/2024 11/29/2024 12:36 PM EDT R/O C.diff 12/13/2024 12/13/2024 12/16/2024 1:38 PM EDT documented as of this encounter Care Teams Assistant Librarian Relationship Specialty Start Date End Date Mary Garcia [address] [place], [place] [address] PCP - General Internal Medicine 12/27/23 documented as of this encounter
--- OUTSIDE RECORDS SUMMARY | 2025-01-21 08:27 | XMS_ITS | Patient Health Record ---
Author Organization [facility] Address [address] [place] [address] Care Team Providers Care Police Surgeon Name Role Phone Mary Garcia Primary Care Provider Unavailab Sy Gregorio Jr Unavailable [phone] Irineo Ahn Unavailable Unavailable Allergies Allergen (clinical [...] e a day for 30 day(s) Active Xvvdduvgni-XMGG-Eqddugpy 50-325-40 MG 1 capsule as needed Orally [...] Problem Status W/U Status Risk Notes Problem 474361024 Bloating (R14.0) Active confirmed Problem 243573346 Gastroesophageal reflux disease without esophagitis (K21.9) Active confirmed Problem 480025567 Abnormal finding s in stool (R19.5) Active confirmed Problem Esophageal reflux finding (489088393) Gastroesophageal reflux (K21.9) Active confirmed Problem 672535289 Irritable bowel syndrome with constipation (K58.1) Active confirmed Vital Signs Temperature 97.5 degrees Fahrenheit 04/24/2024 Blood pressure diastolic 00 mm Hg 04/24/2024 Height 63 in 04/24/2024 Blood pressure systolic 000 mm Hg 04/24/2024 Weight 152 lb 6 oz lbs 04/24/2024 BMI 26.99 kg/m2 04/24/2024 Encounters Encounter Location Date Provider Diagnosis [facility] [address] [place] [address] 04/24/2024 Sy Lam Jr Gastroesophageal reflux disease [...] Provider Name:Sy catherine , 04/30/2025 10:00:00 AM, [address] [place] [address], [facility] [address], [place], [address], Insurance Providers Payer Name Payer Address Payer Phone Subscriber Number Group Number Insured Name Patient Relationship to Insured Coverage Start Date Coverage End Date [facility] [address] [address] [place], [place] [id number] ROLLY SHELL Self - patient is the [...]
== END 2025-01-21 08:24 | disposition home or self-care (01) ==
LOC: HO.MAMMO 08:23
PROVIDERS: PCP Internal Medicine; Visit Provider Internal Medicine
DX: Z12.31 Encounter for screening mammogram for malignant neoplasm of breast (principal)
CPT/HCPCS: 77063; 77067

== ENCOUNTER → 2025-01-21 09:15 | Outpatient (BNV) | payer OTHER, SELFPAY | PROVIDERS: PCP Internal Medicine; Visit Provider Internal Medicine | DX: Z12.31 Encounter for screening mammogram for malignant neoplasm of breast (principal) | CPT/HCPCS: 77063; 77067 ==

== ENCOUNTER 2025-06-10 09:26 | Outpatient (AMB) | payer OTHER, SELFPAY ==
--- NOTE | 2025-06-10 09:46 | A.OFFPC_ITS ---
Vital Signs 06/10/25 09:49 Height 5 ft 3 in Weight 165 lb 6 oz BMI 29.3 BP 136/70 Blood Pressure Location Lt brachial Position Sitting Pulse 95 Pulse Source Pulse Oximeter Temp 97.3 F Temp Source Temporal Artery Scan Pulse Oximetry (%) 95 Oxygen Delivery Method Room Air Intake Visit Reasons: anemia Intake Note: Patient is here to follow up on Anemia. Grey Percher Required: No Hand Gluer And Slicer: Not Required per policy Accompanied by: Self / Same As Patient Allergies ondansetron Allergy (Intermediate, Verified 06/10/25 09:59) abdominal pain Penicillins (PCN) Allergy (Intermediate, Verified 06/10/25 09:59) Rash ibuprofen (From Motrin) Adverse Reaction (Verified 06/10/25 09:59) Heartburn Medication List - Last Reconciled 06/10/25 by Mary Mcghee MD amitriptyline 50 mg PO BEDTIME amlodipine 10 mg PO DAILY rhihcnsygj-swrocketgxgsa-hjaz 50-325-40 mg 1 tab PO DAILY PRN esomeprazole magnesium DR (Nexium Packet) 40 mg PO DAILY fluticasone propionate 50 mcg/actuation (Flonase Allergy Relief) 1 spray intranasal DAILY 30 days letermovir (Prevymis) 480 mg PO DAILY medroxyprogesterone (Provera) 10 mg PO DAILY mirtazapine 15 mg PO BEDTIME mometasone 0.1% 3 ea topical Q OTHER DAY PRN posaconazole mg PO prochlorperazine maleate 10 mg PO Q6H propranolol ER (Inderal LA) 60 mg PO BID ruxolitinib (Jakafi) 5 mg PO BID sodium bicarbonate mg PO sulfamethoxazole-trimethoprim 800-160 mg tabs PO topiramate 100 mg PO BID valacyclovir 500 mg PO BID Tobacco use date assessed: 06/10/25 Dental Screening Dental Screen Date: 12/03/24 HPI HPI Comments History of Present Illness Details The patient is a 44 year old individual presenting for a follow-up visit for chronic conditions, including anemia and hypertension. The patient has a history of a myeloproliferative disorder, specifically essential thrombocytosis, and is being followed by [facility]. Current medications include amitriptyline 50 mg at night and Fioricet as needed for migraines, amlodipine 10 mg for hypertension, esomeprazole for heartburn, and a nasal spray for allergic rhinitis. Additional medications include Provera, mirtazapine at night for sleep, propranolol, and Topamax. The patient has received the influenza vaccine. [facility] Medical History HTN (hypertension) Essential thrombocytosis Iron deficiency anemia GERD (gastroesophageal reflux disease) C. difficile colitis Abdominal pain Diarrhea Anxiety Leg edema Hypovitaminosis D Constipation by delayed colonic transit Hyperviscosity syndrome Migraines Inappropriate sinus tachycardia Surgical History Autologous bone marrow transplantation status History of umbilical hernia repair (07/20/22) Hx of esophagogastroduodenoscopy Hx of colonoscopy History of bone marrow biopsy History of tonsillectomy and adenoidectomy Family History Father Alcoholism Liver failure Mother Hypertension Maternal Grandmother No problems noted. Maternal Grandfather Stroke Paternal Grandmother Breast cancer Maternal Aunt Fibroids Paternal Grandmother No problems noted. Social History Household Members: Family Household Members Other:: Mom Housing: Apartment Are you a primary career education teacher to a significant other at home: No Do you presently have visiting nurse or other home services: No Alcohol intake: never Patient Tobacco Use Status: Never used Tobacco e-Cigarette/Vaping Use: Never Used Second Hand Smoke Exposure: No Advance Directives Date on File: 10/22/15 service: No Current occupational status: unemployed Cognitive needs: No Hearing needs: No Vision needs: Yes Questionnaire Thrive Questionnaire Date Thrive assessed: 11/26/24 I am a: Patient What is your living situation today?: I have a steady place to live Within the past 12 months, did the food you bought not last and you didn't have the money to get more?: Never true Within the past 12 months, did you worry whether your food would run out before you got money to buy more?: Never true Do you have trouble paying for medicines?: No Do you have trouble getting transportation to medical appointments?: No Do you have trouble paying your heating and electricity bill?: No Do you have trouble taking care of your child, family member or friend?: No Do you have trouble with day-to-day activities such as bathing, preparing meals, shopping, managing finances, etc.?: No Are you currently unemployed and looking for a job?: No Are you interested in more education?: No Please select the resources that you would like help with: None Currently or been in a relationship where the following occur: No concerns reported THRIVE Score: 0 AUDIT C Alcohol Use Questionnaire (AUDIT-C) 2. How many drinks containing alcohol do you have on a typical day when you are drinking?: 1 or 2 3. How often do you have six or more drinks on one occasion?: Never Total Score: 0 MILLY-7 AMB Questionnaire MILLY-7 Date MILLY - 7 assessed: 12/03/24 Source: Developed by Drs. Sorin Rodrigues, Ruth Duncan, Lucien Whaley and colleagues, with an educational fabio from [employer]. Review of Systems Const All systems reviewed & are unremarkable except as noted in HPI and below Card Denies chest pain at rest, Denies chest pain with activity, Denies edema, Denies irregular heart rhythm, Denies claudication, Denies dyspnea, Denies dyspnea on exertion, Denies orthopnea, Denies paroxysmal nocturnal dyspnea and Denies slow heart rate Resp Denies cough, Denies dyspnea and Denies dyspnea on exertion GI Denies abdominal pain, Denies change in bowel habits, Denies excessive flatus, Denies nausea and Denies vomiting Denies urinary incontinence, Denies urinary hesitancy and Denies urinary urgency Physical exam (Primary Care) Vital Signs: Last Vital Signs Temp 97.3 F 06/10/25 09:49 Pulse 95 06/10/25 09:49 BP 136/70 06/10/25 09:49 Pulse Ox 95 06/10/25 09:49 Oxygen Delivery Method Room Air 06/10/25 09:49 BMI result Body Mass Index 29.3 Tobacco/Smoking Status: Tobacco use Status Tobacco use date assessed 06/10/25 06/10/25 09:54 Patient Tobacco Use Status Never used Tobacco 06/10/25 09:48 e-Cigarette/Vaping Use Never Used 06/10/25 09:48 Thrive Assessment: Date of Thrive Assessment Date Thrive assessed 11/26/24 06/10/25 09:48 Currently or been in a relationship where the following occur: No concerns reported Resp Effort & Inspection: normal respiratory effort Auscultation: clear to auscultation bilaterally Cardio Jugular venous distension: no JVD Rate: regular rate Rhythm: regular rhythm Heart sounds: S1 normal heart sound present and S2 normal heart sound present Extrem General: Yes full ROM Coding Level of Care Code Complex visit Add On G2211 Diagnoses HTN (hypertension) I10 GERD (gastroesophageal reflux disease) K21.9 Essential thrombocytosis D47.3 Normochromic anemia D64.9 Migraine without aura and without status migrainosus, not intractable G43.009 Migraine type: without aura Status migrainosus presence: without status migrainosus Intractability: not intractable Time Spent (min) 20 Assessment & Plan Assessment & Plan (1) HTN (hypertension): Code(s): I10 - Essential (primary) hypertension Category: Medical (2) GERD (gastroesophageal reflux disease): Code(s): K21.9 - Gastro-esophageal reflux disease without esophagitis Category: Medical (3) Essential thrombocytosis: Code(s): D47.3 - Essential (hemorrhagic) thrombocythemia Category: Medical (4) Normochromic anemia: Code(s): D64.9 - Anemia, unspecified Category: Medical (5) Migraines: Code(s): G43.909 - Migraine, unspecified, not intractable, without status migrainosus Category: Medical Qualifiers: Migraine type: without aura Status migrainosus presence: without status migrainosus Intractability: not intractable Qualified Code(s): G43.009 - Migraine without aura, not intractable, without status migrainosus Plan 1. Hypertension Blood pressure goal is equal or less than 130/80. Continue taking amlodipine. 2. Migraines Continue taking amitriptyline for migraine prophylaxis. 3. Anemia Follow-up with Hematology-Oncology. 4. Essential thrombocytosis Follow-up with Hematology-Oncology. Orders: Orders Lipid Panel Today E78.5 - Hyperlipidemia, unspecified Vitamin D 25-OH Total Today E55.9 - Vitamin D deficiency, unspecified Comprehensive Lovely. Panel Fast Today I10 - Essential (primary) hypertension
[2025-06-10 09:49] VITALS: BP 136/70; PULSE 95; TEMP 36.3; O2SAT 95; BMI 29.3
--- OUTSIDE RECORDS SUMMARY | 2025-06-10 10:49 | XMS_ITS | Clinical Summary ---
Author Organization [employer] Address [address] [place] [address] [address] [place] [address] Care Team Providers Care Report Developer Name Role Phone Unavailable Primary Care Provider [...] every 6 (six) hours. 10/30/2020 Active Folic Lbim-[id number]- D-Ca-Phos (Folgard) tablet Active ibuprofen 800 MG [...] X-Ray: [facility] 03/03/2024 03/02/20 23, 10/18/2022, 06/27/2022 Tobacco Screening 05/24/2024 05/24/2023 COVID-19 Vaccine (3 - 2024- season) 2025 05/26/2021, 10/07/2020 Influenza Vaccine (#1) 2025 , 05/06/2022, 03/20/2020, Additional history exists Zoster Vaccines (1 of 2) 2028 RSV [...] Years) and At-Risk Patients (6 to 49) Years Aged Out No longer eligible based on [...] Most Recently Relevant to Health Maintenance Insurance [facility] ST[facility] DENTAL-[facility] STAND ADULT
--- OUTSIDE RECORDS SUMMARY | 2025-06-10 10:49 | XMS_ITS | Encounter Summary ---
Author Organization [employer] Address [address] [place] [address] [address] [place] [address] Care Team Providers Care Agriculture Internship Name Role Phone Unavailable Primary Care Provider Unavailabl e Encounter Details Date Type Department Care Team (Latest Contact Info) Description 08/21/[address] [facility] CONVERSIONS Dental, Provider, DDS Social History Tobacco [...]
--- OUTSIDE RECORDS SUMMARY | 2025-06-10 10:49 | XMS_ITS | Encounter Summary ---
Author Organization [employer] Address [address] [place] [address] [address] [place] [address] Care Team Providers Care Repairer Wood Furniture Name Role Phone Unavailable Primary Care Provider Unavailabl e Encounter Details Date Type Department Care Team (Latest Contact Info) Description 02/26/2021 Abstract [facility] CONVERSIONS Dental, Provider, DDS Social History [...]
--- OUTSIDE RECORDS SUMMARY | 2025-06-10 10:49 | XMS_ITS | Clinical Summary ---
Author Organization [facility] Address [address] [facility] [address] [place] [phone] Phone Care Team Providers Care Pipe Stem Repairer Name Role Phone Mary Garcia MD Primary Care Provid er Medications bacitracin zinc ointment Apply 1 Application topically daily. Active acetaminophen (TYLENOL) 500 MG tablet Take 500 mg by mouth every 6 (six) hours as needed for pain (specific location in comments). Active oxyCODONE 5 MG immediate release tablet Take 5 mg by mouth every 6 (six) hours as needed for pain (specific location in comments). Daily max 20 mg Active amitriptyline (ELAVIL) 50 MG tablet Take 50 mg by mouth nightly at bedtime. Active amLODIPine (NORVASC) 10 MG tablet Take 10 mg by mouth daily. Active butalbital-aspi rin-caffeine (FIORINAL) 50-325-40 mg per capsule Take 1 capsule by mouth every 4 (four) hours as needed for headache. Active docusate sodium (COLACE) 100 MG capsule Take 100 mg by mouth 3 (three) times a day as needed for moderate constipation. Active fluticasone propionate (FLONASE) 50 mcg/actuation nasal sprayIndication s:allergic rhinitis 1 spray by Nasal route daily. Indications: inflammation of the nose due to an allergy Active furosemide (LASIX) 20 MG tabletIndicatio ns:edema Take 20 mg by mouth daily. On hold since 01/27/25 Indications: visible water retention Active hydrocortisone 2.5 % cream Apply 1 Application topically 2 (two) times a day. Apply to face Active ruxolitinib (JAKAFI) 10 MG tablet Take 10 mg by mouth 2 (two) times a day. Active letermovir (PREVYMIS) 480 mg tablet Take 480 mg by mouth daily. Active loperamide (IMODIUM) 2 mg capsule Take 2 mg by mouth as needed for diarrhea. take 4mg twice daily as needed for dairrhea Active LORazepam (ATIVAN) 0.5 MG tablet Take 0.5 mg by mouth every 6 (six) hours as needed for anxiety. Active medroxyPROGESTE Wei (PROVERA) 10 MG tablet Take 10 mg by mouth daily. Take 2 tablets (20mg) by mouth 3 times a day Active mirtazapine (REMERON) 15 MG tablet Take 15 mg by mouth nightly at bedtime. Active mometasone (ELOCON) 0.1 % ointmentIndicat ions:contact dermatitis Apply 1 Application topically daily. Indications: contact dermatitis, a type of skin rash that occurs from contact with an offending substance Active esomeprazole (NEXIUM PACKET) 40 mg packet Take 40 mg by mouth daily before breakfast. Active posaconazole (NOXAFIL) 200 mg/5 mL (40 mg/mL) suspension Take 200 mg by mouth 3 (three) times a day. Take 5ml (200mg) 3 times daily Active prochlorperazin e (COMPAZINE) 10 MG tablet Take 10 mg by mouth every 6 (six) hours as needed (Nausea and vomiting). Active propranoloL (INDERAL LA) 60 mg 24 hr capsule Take 60 mg by mouth daily. Active simethicone (MYLICON) 80 mg chewable tablet Take 80 mg by mouth every 6 (six) hours as needed for flatulence. Active sodium bicarbonate 650 mg tablet Take 650 mg by mouth 3 (three) times a day. Take 2 tablets by mouth 3 times daily Active sulfamethoxazol e-trimethoprim (BACTRIM DS) 800-160 mg per tablet Take 1 tablet by mouth 2 (two) times a day. Take 1 tablet by mouth 2 times on Monday and Monday. Active topiramate (TOPAMAX) 100 MG tablet Take 100 mg by mouth 2 (two) times a day. Active valACYclovir (VALTREX) 500 MG tablet Take 500 mg by mouth 2 (two) times a day. Active Encounters Date Type Department Care Team Description 05/14/2025 11:30 AM EDT Home Care Visit [facility] [address] [place] [address] Marina Bo RN SN OASIS DISCHARGE VISIT 05/06/2025 2:30 PM EDT Home Care Visit [facility] [address] [place] [address] Neha Ko LPN LPN HOME VISIT 05/02/2025 2:30 PM EDT Home Care Visit [facility] [address] [place] [address] Neha Ko LPN LPN HOME VISIT 04/30/2025 1:00 PM EDT Home Care Visit [facility] [address] [place] [address] Marina Bo RN SN HOME VISIT 04/24/2025 2:00 PM EDT Home Care Visit [facility] [address] [place] [address] Neha Ko LPN LPN HOME VISIT 04/22/2025 9:30 AM EDT Home Care Visit [facility] [address] [place] [address] Marina Bo RN SN HOME VISIT 04/22/2025 Home Care Visit [facility] [address] [place] [address] Kathy Luther RN CASE COMMUNICATION 04/18/2025 12:30 PM EDT Home Care Visit [facility] [address], [place] [phone] Marina Bo RN SN OASIS START OF CARE (SOC) 04/18/2025 Plan of Care Documentation [facility] [address] [place] [phone] 04/16/2025 Orders Only [facility] [address] [place] [phone] Homehealth, Interface ProviderMD from Last 3 Months Social History Tobacco Use Types Packs/Day Years Used Date Smoking Tobacco: Never Assessed Home Health Assessment: Transportation Answer Date Recorded Lack of Transportation (Medical) No 05/14/2025 Lack of Transportation (Non-Medical) No 05/14/2025 Patient Unable or Declines to Respond No 05/14/2025 Education Answer Date Recorded Are you interested in more education? Not on hannah e 04/16/2025 Are you concerned about learning? Not on file 04/16/2025 No 04/16/2025 No 04/16/2025 Digital Access Answer Date Recorded No 04/16/2025 No 04/16/2025 Reliable internet access at home? Not on file 04/16/2025 Device with a working camera? Not on file Comments Unknown Sex and Gender Information Value Date Recorded Sex Assigned at Not on file Legal Sex Female 12:20 PM EDT Gender Identity Not on file Sexual Orientation Not on file Last Filed Vital Signs Vital Sign Reading Time Taken Comments Blood Pressure 118/62 05/14/2025 11:04 AM EDT Pulse 82 05/14/2025 11:04 AM EDT Temperature 36.7 C (98 F) 05/14/2025 11:04 AM EDT Respiratory Rate 18 05/14/2025 11:04 AM EDT Oxygen Saturation 100% 05/14/2025 11:04 AM EDT Inhaled Oxygen Concentration - - Weight 73.9 kg (163 lb) 04/18/2025 2:41 PM EDT Height 154.9 cm (5' 1 ) 04/18/2025 2:41 PM EDT Body Mass Index 30.8 04/18/2025 2:41 PM EDT Plan of Treatment Not on file Medical Devices Not on file [place] [address] [place] [address] ACO [facility] [place] [address] [place] [address] [address] [place] [address] [place] [address] [place] [address] [place] [address] [place] [address] ACO Care Teams Pipe Stem Repairer Relationship Specialty Start Date End Date Mary Garcia MD [address] [place] [phone] PCP - General Internal Medicine 04/17/25 Additional Source Comments The information contained in this document represents components of the legal health record. It is not the complete legal health record.[facility]
--- OUTSIDE RECORDS SUMMARY | 2025-06-10 10:49 | XMS_ITS | Encounter Summary ---
Author Organization [employer] Address [address] [place] [address] [address] [place] [address] Care Team Providers Care Water Pollution Control Inspector Name Role Phone Unavailable Primary Care Provider Unavailabl e Encounter Details Date Type Department Care Team (Latest Contact Info) Description 08/20/2019 Abstract [facility] CONVERSIONS Dental, Provider, DDS Social History Tobacco [...]
== END 2025-06-10 10:08 | disposition home or self-care (01) ==
LOC: HO.HMCH 09:27
PROVIDERS: PCP Internal Medicine; Visit Provider Internal Medicine
DX: I10 Essential (primary) hypertension (principal); K21.9 Gastro-esophageal reflux disease without esophagitis; D47.3 Essential (hemorrhagic) thrombocythemia; D64.9 Anemia, unspecified; G43.009 Migraine without aura, not intractable, without status migrainosus

== ENCOUNTER → 2025-06-10 09:26 | Outpatient (BNVA) | payer OTHER, SELFPAY | PROVIDERS: PCP Internal Medicine; Visit Provider Internal Medicine | DX: I10 Essential (primary) hypertension (principal); K21.9 Gastro-esophageal reflux disease without esophagitis; D47.3 Essential (hemorrhagic) thrombocythemia; D64.9 Anemia, unspecified; G43.009 Migraine without aura, not intractable, without status migrainosus; E55.9 Vitamin D deficiency, unspecified; Z79.899 Other long term (current) drug therapy | CPT/HCPCS: 99212 ==